=== PATIENT | male | born 1950 | race Caucasian/White ===

== ENCOUNTER 2016-06-16 15:00 | Emergency (ER) | payer OTHER ==
[~2016-06-16] VITALS: Ht 180.3 cm; Wt 80.3 kg
[2016-06-16] MEDS ORDERED: AMLODIPINE BESY10 M1 PO (15:37)
[2016-06-16] MEDS ORDERED: BRILINTA90 M1 PO (15:37)
[2016-06-16] MEDS ORDERED: SERTRALINE HCL25 MG PO (15:38)
[2016-06-16] MEDS ORDERED: LORAZEPAM0.5 M1 PO (15:38)
[2016-06-16] MEDS ORDERED: CARVEDILOL25 M1 PO (15:38)
[2016-06-16] MEDS ORDERED: LO-DOSE ASPIRIN81 MG PO (15:39)
[2016-06-16] MEDS ORDERED: NITROGLYCERIN0.4 M1 SL (15:39)
[2016-06-16] MEDS ORDERED: ATORVASTATIN CA40 M1 PO (15:40)
[2016-06-16 15:42] LABS: ABSOLUTE BASOPHIL COUNT 0 /CUMM (0.0-0.2); ABSOLUTE EOSINOPHIL COUNT 0.1 /CUMM (0.0-0.7); ABSOLUTE GRANULOCYTE CT 5.5 /CUMM (1.4-6.5); ABSOLUTE LYMPH COUNT 1.4 /CUMM (1.2-3.4); ABSOLUTE MONOCYTE COUNT 0.5 /CUMM (0.10-0.60); BASOPHIL % 0.4 % (0.0-2.0); EOSINOPHIL % 1.8 % (0-5); GRANULOCYTE % 72.4 % (42.2-75.2); HEMATOCRIT 36.6 % (42-52); MEAN CORPUSCULAR HGB CONC 31.2 G/DL (33.0-37.0); MEAN CORPUSCULAR VOLUME 60.8 FL (80.0-94.0); MEAN PLATELET VOLUME 8.6 FL (7.4-10.4); PLATELET COUNT 221 /CUMM (130-400); RBC DISTRIBUTION WIDTH 18.1 % (11.5-14.5); RED BLOOD CELL CT 6.01 /CUMM (4.70-6.10); WHITE BLOOD CELL COUNT 7.5 /CUMM (4.8-10.8)
--- NOTE | 2016-06-16 16:37 | ED CARDIAC/CP/PALPITATIONS ---
History of Present Illness General Chief Complaint: Chest Pain Stated Complaint: CHEST PAIN Source: patient, family, old records, Epic Exam Limitations: no limitations Vital Signs & Intake/Output Vital Signs & Intake/Output Vital Signs Date Time Temp Pulse Resp B/P Pulse O2 O2 Flow FiO2 Ox Delivery Rate 06/17 0604 97.0 54 18 128/79 97 Room Air 06/16 2342 96.0 60 93/60 06/16 2341 96.0 60 20 93/60 97 Room Air 06/16 2304 57 18 101/74 97 Room Air Room Air 06/16 1725 55 18 129/73 96 Room Air Room Air 06/16 1627 56 18 97/55 95 Room Air Room Air 06/16 1618 57 122/72 06/16 1518 97.7 72 16 94/61 96 Room Air ED Intake and Output 06/17 0000 06/16 1200 Intake Total Output Total Balance Patient 177 lb Weight Allergies Coded Allergies: NO KNOWN ALLERGIES (10/31/11) Core Measure Meds Pre-Hospital aspirin Triage Note: PT TO ED WITH C/O CHEST PRESSURE WORSE WHEN HE PUSHES ON IT. PT REPORTS THAT HE HAS HAD STENTS PLACED IN THE PAST. Triage Nurses Notes Reviewed? yes Onset: Just prior to arrival Duration: minute(s):, constant, continues in ED Timing: recent history Quality/Severity: severe, pressure Location: central Radiation: arms Activities at Onset: emotional stress Prior Chest Pain/Card Workup: angina, cardiac cath, echocardiography, heart attack, stress test Nitro Today/Relief: 0.4 mg x 1, provided by ED, no relief Aspirin Today: 325 mg x 1, provided by ED Associated Symptoms: dizziness, fatigue, shortness of breath, nausea/vomiting HPI: 30 minutes prior to admission while at the bank patient complains of weakness dizziness nausea shortness of breath and heavy substernal chest pain radiating to the left arm moderate in severity. 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 He was started on Zoloft and Ativan with cardiology follow-up. He asked nursing staff for tramadol or Percocet for his pain. He denies fever chills vomiting diarrhea abdominal pain dysuria headache rash bleeding suicidal ideation hallucination. (VENECIA MARTIN,CINDY) Reconcile Medications Amlodipine Besylate 10 MG TABLET 1 TAB PO DAILY HEART (Reported) Aspirin (Lo-Dose Aspirin EC) 81 MG TABLET.DR 1 TAB PO DAILY HEART HEALTH ( Reported) Atorvastatin Calcium 40 MG TABLET 1 TAB PO DAILY CHOLESTEROL (Reported) Carvedilol 25 MG TABLET 1 TAB PO BID HEART (Reported) Lorazepam 0.5 MG TABLET 1 TAB PO BIDP PRN ANXIETY (Reported) Nitroglycerin 0.4 MG TAB.SUBL 1 TAB SL AD PRN CHEST PAIN (Reported) 1st sign of attack; may repeat every 5 minutes until relief; if pain persists after 3 tablets in 15 minutes, prompt medical att Sertraline HCl 25 MG TABLET 1 TAB PO DAILY MENTAL HEALTH (Reported) Ticagrelor (Brilinta) 90 MG TABLET 1 TAB PO BID BLOOD THINNER (Reported) Tramadol HCl 50 MG TABLET 1-2 TAB PO TID PRN pain thirty...[id number] (ANITA MARTIN,DALIA Cooper) Past History Travel History Traveled to [place] past 21 day No Medical History Any Pertinent Medical History? see below for history Cardiovascular: CHF, STENTS 4 Surgical History Surgical History: non-contributory Psychosocial History Who do you live with Brother What is your primary language Vietnamese Tobacco Use: Quit >30 days ago ETOH Use: denies use Illicit Drug Use: denies illicit drug use Family History Hx Contributory? No (CINDY CUADRA MD) Review of Systems Review of Systems Constitutional: Reports: no symptoms. EENTM: Reports: no symptoms. Respiratory: Reports: see HPI, short of breath. Cardiovascular: Reports: see HPI, chest pain. GI: Reports: see HPI, nausea. Genitourinary: Reports: no symptoms. Musculoskeletal: Reports: no symptoms. Skin: Reports: no symptoms. Neurological/Psychological: Reports: no symptoms. Hematologic/Endocrine: Reports: no symptoms. Immunologic/Allergic: Reports: no symptoms. All Other Systems: Reviewed and Negative (CINDY CUADRA MD) Physical Exam Physical Exam General Appearance: well developed/nourished, alert, awake, anxious, mild distress Head: atraumatic, normal appearance Eyes: Bilateral: normal appearance, PERRL, EOMI. Ears, Nose, Throat: normal pharynx, normal ENT inspection, hearing grossly normal, moist mucus membranes Neck: normal inspection, supple, full range of motion, no midline tenderness Respiratory: normal breath sounds, chest non-tender, no respiratory distress, quiet respiration, lungs clear Cardiovascular: regular rate/rhythm, normal peripheral pulses, norml femoral pulses equa Peripheral Pulses: 4+ carotid (R), 4+ carotid (L) Gastrointestinal: normal bowel sounds, soft, non-tender, no organomegaly Back: normal inspection, normal range of motion Extremities: normal inspection, normal capillary refill Neurologic/Psych: no motor/sensory deficits, awake, alert, oriented x 3, normal gait, development director II-XII nml as tested Reflexes: 2+: bicep (R), bicep (L). Skin: intact, normal color, warm/dry Lymphatic: no anterior cervical tori Core Measures ACS in differential dx? Yes ASA ordered for poss ACS? Yes-ordered Severe Sepsis Present: No Septic Shock Present: No (VENECIA MARTIN,CINDY) Progress Differential Diagnosis: AMI, atrial fibrillation, CHF/pulm edema, costochondritis, hyperkalemia, hypovolemia Plan of Care: Orders Procedure Date/time Status Regular Diet 06/16 D Active TROPONIN LEVEL 06/16 1925 Complete EKG 06/16 1909 Active URINE DRUG SCREEN FOR ER ONLY 06/16 1814 Complete Add-on Test (ER Only) 06/16 1747 Active ED CRISIS PSYCH CONSULT 06/16 1747 Active ETHANOL 06/16 1526 Complete TROPONIN LEVEL 06/16 1525 Complete COMPREHENSIVE METABOLIC PANEL 06/16 1525 Complete CBC WITHOUT DIFFERENTIAL 06/16 1525 Complete EKG 06/16 1503 Active Laboratory Tests 06/16/16 2100: Urine Opiates Screen < 100.00, Methadone Screen < 40, Barbiturate Screen < 60, Ur Phencyclidine Scrn < 6.00, Amphetamines Screen < 100, U Benzodiazepines Scrn 87, Urine Cocaine Screen < 50, Urine Cannabis Screen < 5.00 06/16/16 1920: Troponin I < 0.01 06/16/16 1526: Anion Gap 13, Estimated GFR 51 L, BUN/Creatinine Ratio 18.6, Glucose 106 H, Calcium 9.5, Total Bilirubin 1.3, AST 24, ALT 36, Alkaline Phosphatase 60, Troponin I < 0.01, Total Protein 7.5, Albumin 4.4, Globulin 3.1, Albumin/ Globulin Ratio 1.4, CBC w Diff NO MAN DIFF REQ, RBC 6.01, MCV 60.8 L, MCH 19.0 L, RDW 18.1 H, MPV 8.6, Gran % 72.4, Lymphocytes % 18.3 L, Monocytes % 7.1, Eosinophils % 1.8, Basophils % 0.4, Absolute Granulocytes 5.5, Absolute Lymphocytes 1.4, Absolute Monocytes 0.5, Absolute Eosinophils 0.1, Absolute Basophils 0, PUBS MCHC 31.2 L, Serum Alcohol < 10.0 Initial ED EKG: normal axis, normal intervals, normal p-waves, normal QRS complex, normal sinus rhythm, no ST T wave changes Prior EKG: unchanged Rhythm Strip: normal sinus rhythm Hand-Off Endorsed To: ANITA MARTIN,DALIA Cooper Endorsed Time: 1899 Pending: consult, labs Comments: Dg Garcia, cousin has been caring for patient's needs since of brother. He works overnight for [employer] but can pick him up in the morning if he is dischargeable. [phone] Night meds ordered. (CINDY CUADRA MD) Departure Departure Disposition: STILL A PATIENT Condition: Stable Referrals: PATIENT HAS NO PRIMARY CARE DR (PCP/Family) Departure Forms: Customer Survey General Discharge Information Admission Note Spoke With: FANNY MARTIN,JENNY (CINDY CUADRA MD) Departure Clinical Impression Primary Impression: Major depression Qualifiers: Major depression recurrence: recurrent Active/Remission status: currently active Major depression episode severity: severe Psychotic features: without psychotic features Qualified Code: F33.2 - Major depressive disorder, recurrent severe without psychotic features Secondary Impressions: Chest pain syndrome, Chronic pain Prescriptions: Current Visit Scripts Tramadol HCl 1-2 TAB PO TID PRN pain #30 TAB thirty...[id number] Comments 06/16/16, 22:49... discussed with crises... pt cleared... and will follow up with his physicians in [facility]. 06/16/16, 23:35... pt had witnessed episode where he lowered himself to the ground. Witnessed by RN. No head trauma... He has a benign exam. He was cleared by crises team. He has no ride home. He wishes to follow up with his [facility] physicians. He is stable, able to articulate his healthcare needs. He will spend the night to be discharged this morning. 06/16/16, 6:30am....trop neg x 2, ekg benign x 2... pt cleared at [place] last week with cards evaluation. Pt feeling well, feels comfortable leaving... pt asks for short course of tramadol for chronic shoulder pain.... rx sent to [facility] [place]... close follow up advised. (ANITA MARTIN,DALIA Cooper) Critical Care Note Critical Care Note Critical Care Time: 30-74 min (35) (VENECIA MARTIN,CINDY)
--- NOTE | 2016-06-16 22:37 | ED PSYCH CRISIS CONSULTATION ---
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 Pt reported to triage that he was in the bank and started to experience chest pain and was dizzy. Patient was cleared medically for any cardiac related issues. Patient informed ED staff that his brother whom he lived with recently unexpectedly. Upon crisis evaluation, pt endorsed chest pain 7/8 out of 10 which was communicated to Pt nurse at completion of assessment. Pt reported he was seen in [place] ED earlier in the week after his brother unexpected this week. He reports he was prescribed Zoloft and Ativan and given referrals for therapy. Patient reports when his brother he entered into a dark place. He denied current and previous SI / HI. Patient wasn't sleeping well, was sad, worrying about how to manage without his brother, and overall grief. Pt reports that he had clarify about his "situation" when he woke up from his nap here in the ED. Patient believes the Tramadol and Ativan that was given to him helped. We discussed the importance of following up with psychiatric care so he can have continued support. Pt agrees he would like to be in therapy and find a psychiatrist to continue to prescribe the Zoloft. Patient reported he would do this in [facility] as he is a [facility] employee at a [employer] and needs to keep his doctors in [facility]. Crisis printed a list of [place] psychiatrists in [facility] to provide to patient. Also instructed pt to call the back of his card for additional referral options. PT did not have card on him in ED. Pt has a cousin that he is staying with that he wants to stay with for the time being, especially since the wake in Friday night and the in Friday. Encouraged patient to call for an appointment with a [place] psychiatrist while he is home tomorrow. Crisis consulted with Dr. Duque. Pt to be discharged from ED to follow up with outpatient therapy and medication management with insurance paneled psychiatrist in [facility]. Patient's Address: [place] [address] Other Phone Number: Who Do You Live With? Family Family/Informants Interviewed: cannot be obtained due to (cousin is working 3rd shift ) Allergies - Coded Allergies: NO KNOWN ALLERGIES (10/31/11) Current Medications - Scheduled Medications Amlodipine Besylate 10 MG TABLET 1 TAB PO DAILY HEART #30 (Reported) Entered as Reported by NIK BARRIENTOS on 06/16/16 1537 Aspirin (Lo-Dose Aspirin EC) 81 MG TABLET.DR 1 TAB PO DAILY HEART HEALTH #30 (Reported) Entered as Reported by NIK BARRIENTOS on 06/16/16 1539 Atorvastatin Calcium 40 MG TABLET 1 TAB PO DAILY CHOLESTEROL #30 (Reported) Entered as Reported by NIK BARRIENTOS on 06/16/16 1540 Carvedilol 25 MG TABLET 1 TAB PO BID HEART #60 (Reported) Entered as Reported by NIK BARRIENTOS on 06/16/16 1538 Sertraline HCl 25 MG TABLET 1 TAB PO DAILY MENTAL HEALTH #30 (Reported) Entered as Reported by NIK BARRIENTOS on 06/16/16 1538 Ticagrelor (Brilinta) 90 MG TABLET 1 TAB PO BID BLOOD THINNER #180 (Reported) Entered as Reported by NIK BARRIENTOS on 06/16/16 1537 Scheduled PRN Medications Lorazepam 0.5 MG TABLET 1 TAB PO BIDP PRN ANXIETY #10 (Reported) Entered as Reported by NIK BARRIENTOS on 06/16/16 1538 Nitroglycerin 0.4 MG TAB.SUBL 1 TAB SL AD PRN CHEST PAIN #100 (Reported) Entered as Reported by NIK BARRIENTOS on 06/16/16 1539 Laboratory Results: Laboratory Tests 06/16/16 2100: Urine Opiates Screen < 100.00, Methadone Screen < 40, Barbiturate Screen < 60, Ur Phencyclidine Scrn < 6.00, Amphetamines Screen < 100, U Benzodiazepines Scrn 87, Urine Cocaine Screen < 50, Urine Cannabis Screen < 5.00 06/16/16 1920: Troponin I < 0.01 06/16/16 1526: Anion Gap 13, Estimated GFR 51 L, BUN/Creatinine Ratio 18.6, Glucose 106 H, Calcium 9.5, Total Bilirubin 1.3, AST 24, ALT 36, Alkaline Phosphatase 60, Troponin I < 0.01, Total Protein 7.5, Albumin 4.4, Globulin 3.1, Albumin/ Globulin Ratio 1.4, CBC w Diff NO MAN DIFF REQ, RBC 6.01, MCV 60.8 L, MCH 19.0 L, RDW 18.1 H, MPV 8.6, Gran % 72.4, Lymphocytes % 18.3 L, Monocytes % 7.1, Eosinophils % 1.8, Basophils % 0.4, Absolute Granulocytes 5.5, Absolute Lymphocytes 1.4, Absolute Monocytes 0.5, Absolute Eosinophils 0.1, Absolute Basophils 0, PUBS MCHC 31.2 L, Serum Alcohol < 10.0 Past History Past Medical History Neurological: NONE Cardiovascular: CHF, STENTS 4 Psychiatric: anxiety, depression Past Surgical History Surgical History: non-contributory Psychosocial History Strengths/Capabilities: 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 Pt is agreeable to mental health treatment to cope with of brother 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 Patient had some chest monitors attached to his body but not hooked up to any machine during interview. Patient wore glasses. Behaviors Thought Process: WNL Thought Content: WNL Memory: WNL Insight: Fair SI/HI Risk Assessment Past Suicidal Ideation/Attempts No Current Suicidal Ideation/Att No Past Homicidal Ideation/Att: No Current Homicidal Ideation/Attempts No Degree of Intent: None Risk Factors: male, limited support Lethality Ratin PTSD Checklist PTSD Done? patient declined ED Management Sitter: No Restraints: No DSM5/PS Stressors/Medical Prob Diagnosis' (DSM 5, Stressors, Medical): F32.9 Unspecified Depressive Disorder R/O Anxiety Disorder Current GAF: 45 Departure Disposition Psych Medical Clearance Date: 06/16/16 Medically Cleared at: 2149 Time Started: 2149 Time Ended: 2210 Psychiatrist Consulted: Dr. Duque Disposition Established: 06/16/16 Time Disposition Established: 2219 Plan for Disposition - Modality: Outpatient Facility: Patient to Arrange Rationale for Disposition: Pt denies SI/HI or A/V hallucinations. Pt is is in agreement with outpatient therapy in order to process grief related to of his brother Referrals PATIENT HAS NO PRIMARY CARE DR (PCP/Family)
[2016-06-17 06:04] VITALS: BP 128/79
[2016-06-17] MEDS ORDERED: TRAMADOL HCL50 M1 PO (06:21)
== END 2016-06-17 06:24 ==
LOC: ERH 15:00
PROVIDERS: Emergency Medicine
DX: F32.9 Major depressive disorder, single episode, unspecified (principal); R07.89 Other chest pain; G89.29 Other chronic pain
CPT/HCPCS: 80307; 93005; 93010; G0463; G0480; J0131

== ENCOUNTER 2016-06-20 18:45 | Inpatient (IN) | payer OTHER ==
[~2016-06-20] VITALS: Ht 180.3 cm; Wt 75.1 kg
[~2016-06-20 18:45] MED LIST: AMLODIPINE BESY10 M1 PO; ATORVASTATIN CA40 M1 PO; BRILINTA90 M1 PO; CARVEDILOL25 M1 PO; LO-DOSE ASPIRIN81 MG PO; LORAZEPAM0.5 M1 PO; NITROGLYCERIN0.4 M1 SL; SERTRALINE HCL25 MG PO; TRAMADOL HCL50 M1 PO
--- NOTE | 2016-06-20 18:51 | NUR ---
PT TO ED FOR +SI, PT REPORTING HE IS FEELING SUICIDIAL BECAUSE "MY BROTHER ON 06/10 AND I JUST WANT TO BE WITH HIM". PT DENIES ANY ACTIVE PLAN BUT STATING "IM GOING TO BE SOON, I KNOW I AM, I DONT KNOW HOW IM GOING TO DO IT BUT YOULL SEE ILL BE "
--- NOTE | 2016-06-20 18:54 | NUR ---
SECURITY AT BEDSIDE PT CHANGED INTO BLUE SCRUBS
--- NOTE | 2016-06-20 18:55 | NUR ---
PA STUDENT AT BEDSIDE. PT SPOKE WITH HIM, HOWEVER STATED HE "WAS DONE TALKING" AND REFUSED TO ANSWER ANY OF THIS RN'S QUESTIONS. PT LYING ON BED IN ROOM 15. PT CALM AND NON-COMMUNICATIVE. SITTER AT DOOR FOR SAFETY.
--- NOTE | 2016-06-20 19:25 | ED PSYCHIATRIC COMPLAINT ---
History of Present Illness General Chief Complaint: Psychiatric Related Complaint Stated Complaint: +SI Source: patient Exam Limitations: poor historian Vital Signs & Intake/Output Vital Signs & Intake/Output Vital Signs Date Time Temp Pulse Resp B/P Pulse O2 O2 Flow FiO2 Ox Delivery Rate 06/21 0827 97.0 74 18 141/91 97 Room Air 06/21 0623 97.6 60 18 144/79 97 Room Air 06/20 2359 97.6 86 18 150/83 97 Room Air 06/20 2245 98.2 92 16 162/74 06/20 2050 Room Air 06/20 1850 98.6 80 15 165/70 100 Room Air ED Intake and Output 06/21 0000 06/20 1200 Intake Total Output Total Balance Patient 185 lb Weight Allergies Coded Allergies: NO KNOWN ALLERGIES (10/31/11) Reconcile Medications Amlodipine Besylate 10 MG TABLET 1 TAB PO DAILY HEART (Reported) Aspirin (Lo-Dose Aspirin EC) 81 MG TABLET.DR 1 TAB PO DAILY HEART HEALTH ( Reported) Atorvastatin Calcium 40 MG TABLET 1 TAB PO DAILY CHOLESTEROL (Reported) Carvedilol 25 MG TABLET 1 TAB PO BID HEART (Reported) Lorazepam 0.5 MG TABLET 1 TAB PO BIDP PRN ANXIETY (Reported) Nitroglycerin 0.4 MG TAB.SUBL 1 TAB SL AD PRN CHEST PAIN (Reported) 1st sign of attack; may repeat every 5 minutes until relief; if pain persists after 3 tablets in 15 minutes, prompt medical att Sertraline HCl 25 MG TABLET 1 TAB PO DAILY MENTAL HEALTH (Reported) Ticagrelor (Brilinta) 90 MG TABLET 1 TAB PO BID BLOOD THINNER (Reported) Tramadol HCl 50 MG TABLET 1-2 TAB PO TID PRN pain thirty...[id number] Triage Note: PT TO ED FOR +SI, PT REPORTING HE IS FEELING SUICIDIAL BECAUSE "MY BROTHER ON 06/10 AND I JUST WANT TO BE WITH HIM". PT DENIES ANY ACTIVE PLAN. Triage Nurses Notes Reviewed? yes HPI: 66-year-old male comes into the emergency room for further evaluation of complaining that he just needs to . He reports that ever since his brother which was June 10 he has been very sad. He describes his brother as being his other half. Patient reports that he can open longer take care of himself and just doesn't want to live anymore. Denied any physical complaints. Patient became very withdrawn and would not answer anymore questions after he made the statements. History is limited. Patient was seen here the other day and evaluated by crisis and sent home. (SCOTT POWERS) Past History Travel History Traveled to [place] past 21 day No Medical History Any Pertinent Medical History? see below for history Neurological: NONE Cardiovascular: CHF, STENTS 4 Respiratory: NONE Gastrointestinal: NONE Hepatic: NONE Renal: NONE Musculoskeletal: NONE Psychiatric: anxiety, depression Endocrine: NONE Blood Disorders: NONE Cancer(s): NONE Surgical History Surgical History: non-contributory Psychosocial History Who do you live with Family What is your primary language Persian Tobacco Use: Never used ETOH Use: occasional use Illicit Drug Use: denies illicit drug use Family History Hx Contributory? No (SCOTT POWERS) Review of Systems Review of Systems Constitutional: Reports: no symptoms. EENTM: Reports: no symptoms. Respiratory: Reports: no symptoms. Cardiovascular: Reports: no symptoms. GI: Reports: no symptoms. Genitourinary: Reports: no symptoms. Musculoskeletal: Reports: no symptoms. Skin: Reports: no symptoms. Neurological/Psychological: Reports: see HPI. Hematologic/Endocrine: Reports: no symptoms. Immunologic/Allergic: Reports: no symptoms. All Other Systems: Reviewed and Negative (SCOTT POWERS) Physical Exam Physical Exam General Appearance: well developed/nourished, mild distress Head: atraumatic Eyes: Bilateral: normal appearance. Ears, Nose, Throat: normal ENT inspection, hearing grossly normal Neck: normal inspection Respiratory: no respiratory distress Extremities: normal range of motion Neurological/Psychiatric: awake, agitated, depressed affect Appearance/Memory/Insight: disheveled, impaired insight Behavoir/Eye Contact/Speech: avoids eye contact, uncooperative, refused to answer Thoughts/Hallucinations: no apparent hallucination Skin: intact, normal color, warm/dry SAD PERSONS SAD PERSONS Response Value Male Sex? yes 1 Age <19 or >45 years? yes 1 Depression/Hopelessness? yes 2 Rational Thinking Loss? yes 2 Single//? yes 1 Stated Future Intent? yes 2 Total 9 SAD PERSONS Done? yes (SCOTT POWERS) Progress Differential Diagnosis: dementia, drug intoxication, drug overdose, drug withdrawal, electrolyte abnormality, encephalitis, hypoglycemia, hypothyroidism, IC hem/mass/tumor, meningitis, major depression, bipolar, borderline personality , Plan of Care: Orders Procedure Date/time Status Regular Diet 06/21 B Active Admit to inpatient psych 06/21 1018 Active EKG 06/21 0823 Active Continuous Observation Monitor 06/21 0700 Active Continuous Observation Monitor 06/21 0300 Active Continuous Observation Monitor 06/20 2300 Active ACETOMINOPHEN 06/20 1948 Complete SALICYLATE 06/20 1948 Complete ED CRISIS PSYCH CONSULT 06/20 1925 Active URINE DRUGS OF ABUSE 06/21 1907 Complete ETHANOL 06/21 1907 Complete COMPREHENSIVE METABOLIC PANEL 06/21 1907 Complete CBC WITHOUT DIFFERENTIAL 06/21 1907 Complete Continuous Observation Monitor 06/20 1899 Active Current Medications Sig/Moises Start time Last Medication Dose Stop Time Status Admin Atorvastatin Calcium 40 MG 1700 06/21 1700 UNVr (Lipitor) Amlodipine Besylate 10 MG DAILY 06/21 1000 UNVr (Norvasc) Carvedilol 25 MG BID 06/21 1000 UNVr (Coreg) Sertraline HCl 25 MG DAILY 06/21 1000 UNVr (Zoloft) Ticagrelor 90 MG BID 06/21 1000 UNVr (Brilinta) Laboratory Tests 06/20/162236: Urine Opiates Screen < 100.00, Methadone Screen < 40, Barbiturate Screen < 60, Ur Phencyclidine Scrn < 6.00, Amphetamines Screen < 100, U Benzodiazepines Scrn < 85, Urine Cocaine Screen < 50, Urine Cannabis Screen < 5.00 06/20/161948: Anion Gap 10, Estimated GFR > 60, BUN/Creatinine Ratio 21.8, Glucose 97, Calcium 9.5, Total Bilirubin 0.9, AST 26, ALT 32, Alkaline Phosphatase 65, Total Protein 7.7, Albumin 4.4, Globulin 3.3, Albumin/Globulin Ratio 1.3, CBC w Diff NO MAN DIFF REQ, RBC 6.28 H, MCV 60.0 L, MCH 18.9 L, RDW 17.6 H, MPV 8.6, Gran % 68.2, Lymphocytes % 20.4 L, Monocytes % 8.0, Eosinophils % 3.0, Basophils % 0.4 , Absolute Granulocytes 4.5, Absolute Lymphocytes 1.4, Absolute Monocytes 0.5, Absolute Eosinophils 0.2, Absolute Basophils 0, PUBS MCHC 31.6 L, Salicylates < 1.0, Acetaminophen < 10.0 L, Serum Alcohol < 10.0 06/20/16 1929: Salicylates Cancelled, Acetaminophen Cancelled 06/21/2016 7:16:09 AM Patient signed out to me by Dr. Cuadra. Pending crisis evaluation and disposition. 10:19AM Patient admitted to [facility]. (BETY SAUCEDO MD) Hand-Off Endorsed To: CINDY CUADRA MD Endorsed Time: 2253 Pending: consult (crisis) (SCOTT POWERS) Hand-Off Endorsed To: BETY SAUCEDO MD Endorsed Time: 0700 Pending: consult (initial consultation) (CINDY CUADRA MD) Initial ED EKG: NSR, ST depression (LATERAL ST DEPRESSIONS), PVC'S Prior EKG: unchanged (BETY SAUCEDO MD) Departure Departure Condition: Stable Clinical Impression Primary Impression: Major depression Referrals: PATIENT HAS NO PRIMARY CARE DR (PCP/Family) Departure Forms: Customer Survey General Discharge Information (SCOTT POWERS) PA/CORNICE UPHOLSTERER Co-Sign Statement Statement: ED Attending supervision documentation- x I saw and evaluated the patient. I have also reviewed all the pertinent lab results and diagnostic results. I agree with the findings and the plan of care as documented in the PA's/CORNICE UPHOLSTERER's documentation. [] I have reviewed the ED Record and agree with the PA's/CORNICE UPHOLSTERER's documentation. [] Additions or exceptions (if any) to the PAs/CORNICE UPHOLSTERER's note and plan are summarized below: [] (CINDY CUADRA MD) Departure Time of Disposition: 1018 Disposition: STILL A PATIENT Psych Admission Note Psychiatric Admission: I have seen and evaluated ITZEL GERARD. I have also reviewed all the pertinent lab results and diagnostic results. ITZEL GERARD will be admitted to our inpatient Psychiatric unit for treatment and care. (BETY SAUCEDO MD)
--- NOTE | 2016-06-20 19:35 | NUR ---
PT SPOKE WITH THIS RN AND STATED "I JUST WANT TO BE WITH MY BROTHER. WE WERE INSEPERABLE. HE WOULDN'T WANT ME TO SUFFER LIKE THIS. I CAN'T EAT OR SLEEP OR SHOWER".
--- NOTE | 2016-06-20 19:52 | NUR ---
LABS DRAWN AND SENT BY THIS MST. SST,LAV.
[2016-06-20 20:12] LABS: ABSOLUTE BASOPHIL COUNT 0 /CUMM (0.0-0.2); ABSOLUTE EOSINOPHIL COUNT 0.2 /CUMM (0.0-0.7); ABSOLUTE GRANULOCYTE CT 4.5 /CUMM (1.4-6.5); ABSOLUTE LYMPH COUNT 1.4 /CUMM (1.2-3.4); ABSOLUTE MONOCYTE COUNT 0.5 /CUMM (0.10-0.60); BASOPHIL % 0.4 % (0.0-2.0); GRANULOCYTE % 68.2 % (42.2-75.2); HEMATOCRIT 37.7 % (42-52); MEAN CORPUSCULAR HGB 18.9 PG (27.0-31.0); MEAN CORPUSCULAR HGB CONC 31.6 G/DL (33.0-37.0); MEAN PLATELET VOLUME 8.6 FL (7.4-10.4); PLATELET COUNT 214 /CUMM (130-400); RBC DISTRIBUTION WIDTH 17.6 % (11.5-14.5); RED BLOOD CELL CT 6.28 /CUMM (4.70-6.10); WHITE BLOOD CELL COUNT 6.6 /CUMM (4.8-10.8)
--- NOTE | 2016-06-20 20:53 | NUR ---
PT WAS BROUGHT TO ER BY HIS COUSIN AND HIS LATE BROTHER'S EAP WORKER. EAP WORKER SPOKE WITH THIS RN TO TELL HOW PT HAS BEEN ACTING OVER THE LAST FEW DAYS, WITH THE WAKE AND THE . 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 PT IS EXPRESSING INTENT TO AND "WANTS TO BE WITH HIS BROTHER". PT MEDICATED WITH TRAZODONE 50MG FOR SLEEP. PROVIDED PT WITH ANOTHER BLANKET.
--- NOTE | 2016-06-20 21:37 | ED PSY CRISIS COLLATERAL NOTE ---
Collateral Note Collateral Note Family/Inform/Win Contacts: DEEPAK spoke with the patients cousin, Dg Garcia ([phone]), for collateral information. Dg notes that he brought the patient in for evaluation tonight, as the patient has been making suicidal to his (Dg's ). Dg reports that the patient was living with his brother until his recent passing, noting that "his brother took care of him." Dg reports that the patient "can be very stable, up until he is not." Dg notes that the patient has some mental health issues, however has never been formally diagnosed. 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 Dg notes that the patient has had a very difficult time coping with the loss of his brother. Dg is not sure what would be most helpful, however does believe that he needs some mental health treatment. He would like to be called when the plan of care is decided.
--- NOTE | 2016-06-20 21:39 | NUR ---
Crisis consult recieved, however the patient has not given a urine. He is preoccupied with and states "that he is a man walking." When explained that a urine is needed prior to evaluation, he said "all he needs is to go and be with his brother," of note his brother last week. Collateral obtained and the patient will be evaluated in the AM. Case discussed with JON Polanco and Dr. Higginbotham.
--- NOTE | 2016-06-20 21:50 | NUR ---
MEDICATED PT WITH ATIVAN 1MG FOR ANXIETY. PT CALM AND COOPERATIVE IN ROOM 15. SITTER AT DOOR
--- NOTE | 2016-06-20 22:40 | NUR ---
URINE TRIO SENT BY THIS MST
--- NOTE | 2016-06-21 00:07 | NUR ---
SLEEPING AT THIS TIME SITTER AT DOOR.
--- NOTE | 2016-06-21 03:20 | NUR ---
PATIENT AWAKE, CONTINUES TO REQUEST ATIVAN. PATIENT COOPERATIVE W/ STAFF. MD CUADRA AWARE. PATIENT MEDICATED W/ ATIVAN PER EMAR. TOLERATED WELL. PLACED IN HOSPITAL BED IN ROOM AT THIS TIME FOR COMFORT. SITTER REMAINS W/ PATIENT.
--- NOTE | 2016-06-21 03:27 | NUR ---
PATIENT REPORTS "I CAN'T TAKE THE AIR BLOWER IN THE ROOM." DENIES DISCOMFORT W/ ROOM TEMP. THERMOSTAT ADJUSTED PER REQUEST, PATIENT AGREEABLE TO INTERVENTION. REMAINS IN HOSPITAL BED W/ TV ON LOUD PER REQUEST. SITTER REMAINS W/ PATIENT.
--- NOTE | 2016-06-21 04:51 | NUR ---
PATIENT CONTINUES TO SLEEP AT THIS TIME W/ REGULAR RESPIRATIONS NOTED. SITTER REMAINS AT DOORWAY.
--- NOTE | 2016-06-21 06:10 | NUR ---
PATIENT CONTINUES TO SLEEP AT THIS TIME W/ REGULAR RESPIRATIONS NOTED. SITTER REMAINS AT DOORWAY. LIGHTS REMAIN DIMMED. PATIENT NOTED TO BE SELF TURNING AND REPOSITIONING.
--- NOTE | 2016-06-21 08:00 | NUR ---
ASSUMED CARE OF THIS PATIENT, REPORT RECEIVED FROM JON BURRIS PT APPEARS TO BE SLEEPING AT THIS TIME WITH REGULAR RESPIRATIONS NOTED. PER REPORT PT TO BE RE-EVALUATED BY CRISIS THIS MORNING. SITTER REMAINS AT DOOR.
--- NOTE | 2016-06-21 08:28 | NUR ---
PT AWAKENS, REQUESTS ATIVAN. DISCUSSED SAME WITH MD SAUCEDO PT MEDICATED WITH ATIVAN PER ORDERS PRIOR TO MEDICATING, VITALS OBTAINED. PT COMPLAINS OF 8/10 CHEST PAIN. DESCRIBES PAIN "LIKE AN ELEPHANT SITTING ON MY CHEST". STATES HAS HAD SAME INTERMITTENT X 1 MONTH AND IS NOT PRESENT/CONSTANT X 1 HR. STATES HE HAS BEEN AT [facility] FOR SAME AND THAT THEY GAVE HIM TRAMADOL FOR THE PAIN. PT ALSO REPORTS HX OF CAD WITH MD AND [address] SAUCEDO MADE AWARE OF SAME. PT MEDICATED WITH 325 ASPIRIN AND EKG BEING DONE AT PRESENT PER ORDERS MD SAUCEDO.
--- NOTE | 2016-06-21 09:10 | ED PSYCH CRISIS CONSULTATION ---
Crisis Consult Basic Assessment Date of Consult: 06/21/16 Responsible Person/Accompanied By: Dg - cousin Insurance Authorization: Insurance #1: Insurance name: TORY Phone number: Policy number: [id number] Group number: Authorization number: ED Provider: Patient's ED Provider: SCOTT POWERS Primary Care Physician: Patient's PCP: PATIENT HAS NO PRIMARY CARE DR PCP's Phone Number: Current Psychiatrist: No provider Chief Complaint: Psychiatric Related Complaint Patient's Quote: " I just want to . I have various ways but won't tell you." Present Illness: Pt is 66 yo single male presenting to the ED with severe suicidal feelings of wanting to and join his late brother who recently passed in May 2016. Pt stated " I have various plans in my head and I won't tell you." Pt UTOX was negative for substances. Pt stated he has no hx of mental health treatment/ substance abuse or IP hospitalizations. He said the of his younger brother ( 4 years) is too painful to bare and wants to join his brother. " We were inseparable ". He stated he cannot eat or drink anything, and sleep is horrible. " the ativan is helping". Pt denies hx AVH hallucinations, hx of legal issues and trauma. 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 Pt said he does not wish to return to work - he cannot think of anything else. Pt's hx is limited during consultation interview as he is preoccupied with dying. He said he does not feel counseling or group therapy would be helpful, however he is willing to be admitted to the hospital for mood stabilization and safety. Patient's Address: [address] [place] [address] Other Phone Number: Who Do You Live With? Family Family/Informants Interviewed: Dg- relative Allergies - Coded Allergies: NO KNOWN ALLERGIES (10/31/11) Current Medications - Scheduled Medications Amlodipine Besylate 10 MG TABLET 1 TAB PO DAILY HEART #30 (Reported) Entered as Reported by NIK BARRIENTOS on 06/16/16 7237 Aspirin (Lo-Dose Aspirin EC) 81 MG TABLET. 1 TAB PO DAILY HEART HEALTH #30 (Reported) Entered as Reported by NIK BARRIENTOS on 06/16/16 1539 Atorvastatin Calcium 40 MG TABLET 1 TAB PO DAILY CHOLESTEROL #30 (Reported) Entered as Reported by NIK BARRIENTOS on 06/16/16 1540 Carvedilol 25 MG TABLET 1 TAB PO BID HEART #60 (Reported) Entered as Reported by NIK BARRIENTOS on 06/16/16 1538 Sertraline HCl 25 MG TABLET 1 TAB PO DAILY MENTAL HEALTH #30 (Reported) Entered as Reported by NIK BARRIENTOS on 06/16/16 1538 Ticagrelor (Brilinta) 90 MG TABLET 1 TAB PO BID BLOOD THINNER #180 (Reported) Entered as Reported by NIK BARRIENTOS on 06/16/16 1537 Scheduled PRN Medications Lorazepam 0.5 MG TABLET 1 TAB PO BIDP PRN ANXIETY #10 (Reported) Entered as Reported by NIK BARRIENTOS on 06/16/16 1538 Nitroglycerin 0.4 MG TAB.SUBL 1 TAB SL AD PRN CHEST PAIN #100 (Reported) Entered as Reported by NIK BARRIENTOS on 06/16/16 1539 Tramadol HCl 50 MG TABLET 1-2 TAB PO TID PRN pain #30 TAB Prescribed by GUANAKITO HOWARD [facility] on 06/17/16 Laboratory Results: Laboratory Tests 06/20/162236: Urine Opiates Screen < 100.00, Methadone Screen < 40, Barbiturate Screen < 60, Ur Phencyclidine Scrn < 6.00, Amphetamines Screen < 100, U Benzodiazepines Scrn < 85, Urine Cocaine Screen < 50, Urine Cannabis Screen < 5.00 06/20/161948: Anion Gap 10, Estimated GFR > 60, BUN/Creatinine Ratio 21.8, Glucose 97, Calcium 9.5, Total Bilirubin 0.9, AST 26, ALT 32, Alkaline Phosphatase 65, Total Protein 7.7, Albumin 4.4, Globulin 3.3, Albumin/Globulin Ratio 1.3, CBC w Diff NO MAN DIFF REQ, RBC 6.28 H, MCV 60.0 L, MCH 18.9 L, RDW 17.6 H, MPV 8.6, Gran % 68.2, Lymphocytes % 20.4 L, Monocytes % 8.0, Eosinophils % 3.0, Basophils % 0.4 , Absolute Granulocytes 4.5, Absolute Lymphocytes 1.4, Absolute Monocytes 0.5, Absolute Eosinophils 0.2, Absolute Basophils 0, PUBS MCHC 31.6 L, Salicylates < 1.0, Acetaminophen < 10.0 L, Serum Alcohol < 10.0 06/20/161928: Salicylates Cancelled, Acetaminophen Cancelled Past History Past Medical History Neurological: NONE Cardiovascular: CAD, CHF, myocardial infarction, STENTS 4 Respiratory: NONE Gastrointestinal: NONE Hepatic: NONE Renal: NONE Musculoskeletal: NONE Psychiatric: anxiety, depression Endocrine: NONE Blood Disorders: NONE Cancer(s): NONE Past Surgical History Surgical History: non-contributory Psychosocial History Strengths/Capabilities: 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 Pt is agreeable to mental health treatment to cope with of brother 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 Physical Limitations (Interventions): none Psychiatric Treatment History Psych Treatment Psychiatric Treatment No Inpatient Treatment No Outpatient Treatment No Diagnosis by History: none Substance Use/Abuse History Drug Use/Abuse Substances Used/Abused No Substance Abuse Treatment Substance Abuse Treatment Past Substance Abuse [place] No Inpatient Treatment No Outpatient Treatment No Current Mental Status Mental Status Orientation: Person, Place, Situation Affect: Blunted, Depressed, Flat, Hopeless Speech: Mumbled, Soft Neuro-vegetative: Appetite Decreased, Concentration Poor, Energy Decreased, Helpless, Loss of Interest, Sleep Disturbance Appearance Appearance- Dress/Hygiene: Pt is dressed in blue hospital gown, laying down in bed, poor eye contact, and disheveled long hair. Hygiene is poor. Behaviors Thought Process: Irrational Thought Content: WNL Memory: Impaired Insight: Poor SI/HI Risk Assessment Past Suicidal Ideation/Attempts No Current Suicidal Ideation/Att Yes Past Homicidal Ideation/Att: No Current Homicidal Ideation/Attempts No Degree of Intent: States Intent Gravely Disabled: Lack of Insight, Poor Judgment Risk Factors: high anxiety/distress, isolate/no social support, poor impulse control, lives alone, male, limited support Lethality Ratin PTSD Checklist PTSD Done? pt unable to participate ED Management Sitter: Yes Restraints: No DSM5/PS Stressors/Medical Prob Diagnosis' (DSM 5, Stressors, Medical): F32.2 Major depressive disorder, severe, single episode medical: pt reports coronary heart disease psychosocial: limited primary and social supports, bereavment issues Current GAF: 20 Departure Disposition Psych Medical Clearance Date: 06/21/16 Medically Cleared at: 0840 Time Started: 0840 Time Ended: 09 Psychiatrist Consulted: Heide MARTIN,Edward Date Disposition Established: 06/21/16 Time Disposition Established: 1000 Plan for Disposition - Modality: Inpatient Psychiatry [facility]: [facility] Rationale for Disposition: Pt is actively suicidal with intent to kill himself and join his late brother. Pt refuses to disclose his plan to kill himself. He is agreeable for inpatient admission for mood stabilization and safety. Type of IP Admission: Voluntary Referrals PATIENT HAS NO PRIMARY CARE DR (PCP/Family)
--- NOTE | 2016-06-21 09:58 | IP CRISIS DIAG ASSESS PSYCH ---
See Addendum Diagnostic Assessment Basic Assessment Insurance Authorization: Insurance #1: Insurance name: T[employer] Phone number: Policy number: [id number] Group number: Authorization number: Primary Care Physician: Patient's PCP: PATIENT HAS NO PRIMARY CARE DR PCP's Phone Number: Patient's Quote: " I just want to . I have various ways but won't tell you." Present Illness: Pt is 66 yo single male presenting to the ED with severe suicidal feelings of wanting to and join his late brother who passed in May 2016. Pt stated " I have various plans in my head and I won't tell you." Pt UTOX was negative for substances. Pt stated he has no hx of mental health treatment/ substance abuse or IP hospitalizations. He said the of his younger brother ( 4 years) is too painful to bare and wants to join his brother. " We were inseparable ". He stated he cannot eat or drink anything, and sleep is horrible. " the ativan is helping". Pt denies hx AVH hallucinations, hx of legal issues and trauma. 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 Pt said he does not wish to return to work - he cannot think of anything else. Pt's hx is limited during consultation interview as he is preoccupied with dying. He said he does not feel counseling or group therapy would be helpful, however he is willing to be admitted to the hospital for mood stabilization and safety. Patient's Address: [address] [place] [address] Other Phone Number: Who Do You Live With? Family Feel Safe Where You Live? No Marital Status: single Do You Have Children? No Primary Language? Guinean Language(s) Spoken At Home: Guinean Family/Informants Interviewed: Dg- relative Allergies - Coded Allergies: NO KNOWN ALLERGIES (10/31/11) Current Medications - Scheduled Medications Amlodipine Besylate 10 MG TABLET 1 TAB PO DAILY HEART #30 (Reported) Entered as Reported by NIK BARRIENTOS on 06/16/16 1537 Aspirin (Lo-Dose Aspirin EC) 81 MG TABLET. 1 TAB PO DAILY HEART HEALTH #30 (Reported) Entered as Reported by NIK BARRIENTOS on 06/16/16 1539 Atorvastatin Calcium 40 MG TABLET 1 TAB PO DAILY CHOLESTEROL #30 (Reported) Entered as Reported by NIK BARRIENTOS on 06/16/16 1540 Carvedilol 25 MG TABLET 1 TAB PO BID HEART #60 (Reported) Entered as Reported by NIK BARRIENTOS on 06/16/16 1538 Sertraline HCl 25 MG TABLET 1 TAB PO DAILY MENTAL HEALTH #30 (Reported) Entered as Reported by NIK BARRIENTOS on 06/16/16 1538 Ticagrelor (Brilinta) 90 MG TABLET 1 TAB PO BID BLOOD THINNER #180 (Reported) Entered as Reported by NIK BARRIENTOS on 06/16/16 1537 Scheduled PRN Medications Lorazepam 0.5 MG TABLET 1 TAB PO BIDP PRN ANXIETY #10 (Reported) Entered as Reported by NIK BARRIENTOS on 06/16/16 1538 Nitroglycerin 0.4 MG TAB.SUBL 1 TAB SL AD PRN CHEST PAIN #100 (Reported) Entered as Reported by NIK BARRIENTOS on 06/16/16 1539 Tramadol HCl 50 MG TABLET 1-2 TAB PO TID PRN pain #30 TAB Prescribed by ANITA MARTIN,[facility] on 06/17/16 Past History Past Surgical History Surgical History unobtainable Abuse/Trauma History Trauma History/Current Trauma: Denies Legal History Current Legal Status: none Have you ever been arrested? 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 Pt is agreeable to mental health treatment to cope with of brother Pt has been employeed for 32 years as a [employer] Physical Limitations (Interventions): none Psychiatric Treatment History Psych Treatment Psychiatric Treatment No Inpatient Treatment No Outpatient Treatment No Diagnosis by History: none Risk Factors: high anxiety/distress, isolate/no social support, poor impulse control, lives alone, male, limited support Substance Use/Abuse History Drug Use/Abuse minimum 12mo Hx Substances Used/Abused No Substance Abuse Treatment Substance Abuse Treatment Past Substance Abuse TX No Inpatient Treatment No Outpatient Treatment No Sexual History Sexually Active No # of partners 0 Sexual Orientation Heterosexual Sexual Concerns: no Education History Highest Level of Education: master's degree Preferred Learning Style: unable to assess at this time Current Mental Status Mental Status Orientation: Person, Place, Situation Affect: Blunted, Depressed, Flat, Hopeless Speech: Mumbled, Soft Neuro-vegetative: Appetite Decreased, Concentration Poor, Energy Decreased, Helpless, Loss of Interest, Sleep Disturbance Appearance Appearance- Dress/Hygiene: Pt is dressed in blue hospital gown, laying down in bed, poor eye contact, and disheveled long hair. Hygiene is poor. Behaviors Thought Process: Irrational Thought Content: WNL Memory: Impaired Insight: Poor SI/HI Risk Assessment - Minimum 6mo History- Past Suicidal Ideation/Attempts No Current Suicidal Ideation/Att Yes Past Homicidal Ideation/Att: No Current Homicidal Ideation/Attempts No Degree of Intent: States Intent Gravely Disabled: Lack of Insight, Poor Judgment Risk Factors: high anxiety/distress, isolate/no social support, poor impulse control, lives alone, male, limited support Lethality Ratin Needs/Init TX Plan/Goals: Mood stabilization and safety, individual and group therapy, medication evaluation and family meeting. AUDIT-C Questionnaire: AUDIT-C Questionnaire: Response Value ETOH use in the past year Never 0 # drinks typical/day Doesn't Drink 0 6 or > drinks per occasion Never 0 Total 0 DSM5/PS Stressors/Medical Prob Diagnosis' (DSM 5, Stressors, Medical): F32.2 Major depressive disorder, severe, single episode medical: pt reports coronary heart disease psychosocial: limited primary and social supports, bereavment issues Current GAF: 20 Comments: Pt is preoccupied with dying and joining his brother in .
--- NOTE | 2016-06-21 10:43 | NUR ---
PT SLEEPING, AWAKENS EASILY FOR VITAL SIGNS AND AM MEDICATIONS. MEDICATED WITH ALL 10 AM MEDS AT THIS TIME (BRILINTA, COREG, NORVASC AND ZOLOFT) PER ORDERS. OFFERS NO COMPLAINTS AT THIS TIME.
--- NOTE | 2016-06-21 10:45 | NUR ---
BEDSIDE REPORT GIVEN TO HYDRO OPERATOR EILEEN FROM [facility].
--- NOTE | 2016-06-21 10:54 | NUR ---
BELONGINGS BAG X 1 AND VALUABLES ENVELOPE X 1 GIVEN TO SECURITY FOR TRANSPORT TO [facility].
--- NOTE | 2016-06-21 11:57 | History & Physical ---
General Information and HPI MD Statement: I have seen and personally examined ITZEL GERARD and documented this H&P. The patient is a 66 year old M who presented with a patient stated chief complaint of " I want to ". 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 Patient said that he lost his younger brother very recently and since then he has been feeling very depressed and just wants to . He said that there is no meaning of life without his brother. He was very close to his brother. They did things together and now he has no meaning of life without him. He has been complaining off chest pain from last 1 months. He said that it is mainly located in the left side of his chest. He also claims that it is radiating to his neck and his jaw, it gets better when he lays down. Tramadol makes it better. He denies any shortness of breath, any nausea, any vomiting any dizziness or any abdominal pain. When asked he said he has a lot of things in his mind that she will do the patient himself when he gets out. Allergies/Medications Allergies: Coded Allergies: NO KNOWN ALLERGIES (10/31/11) Home Med list Amlodipine Besylate 10 MG TABLET 1 TAB PO DAILY HEART (Reported) Aspirin (Lo-Dose Aspirin EC) 81 MG TABLET.DR 1 TAB PO DAILY HEART HEALTH ( Reported) Atorvastatin Calcium 40 MG TABLET 1 TAB PO DAILY CHOLESTEROL (Reported) Carvedilol 25 MG TABLET 1 TAB PO BID HEART (Reported) Lorazepam 0.5 MG TABLET 1 TAB PO BIDP PRN ANXIETY (Reported) Nitroglycerin 0.4 MG TAB.SUBL 1 TAB SL AD PRN CHEST PAIN (Reported) 1st sign of attack; may repeat every 5 minutes until relief; if pain persists after 3 tablets in 15 minutes, prompt medical att Sertraline HCl 25 MG TABLET 1 TAB PO DAILY MENTAL HEALTH (Reported) Ticagrelor (Brilinta) 90 MG TABLET 1 TAB PO BID BLOOD THINNER (Reported) Tramadol HCl 50 MG TABLET 1-2 TAB PO TID PRN pain thirty...[id number] Past History Travel History Traveled to [place] past 21 day No Medical History Neurological: NONE Cardiovascular: CAD, CHF, myocardial infarction, STENTS 4 Respiratory: NONE Gastrointestinal: NONE Hepatic: NONE Renal: NONE Musculoskeletal: NONE Psychiatric: anxiety, depression Endocrine: NONE Blood Disorders: NONE Cancer(s): NONE Isolation History: Standard Surgical History Surgical History: non-contributory Past Family/Social History Family History Relations & Conditions if any BROTHER Relation not specified for: Tricuspid valve disorder Psychosocial History ETOH Use: occasional use Illicit Drug Use: denies illicit drug use Review of Systems Review of Systems Constitutional: Reports: see HPI. EENTM: Reports: see HPI. Cardiovascular: Reports: see HPI. Respiratory: Reports: see HPI. GI: Reports: see HPI. Genitourinary: Reports: see HPI. Musculoskeletal: Reports: see HPI. Skin: Reports: see HPI. Neurological/Psychological: Reports: see HPI. Exam & Diagnostic Data Last 24 Hrs of Vital Signs/I&O Vital Signs Date Time Temp Pulse Resp B/P Pulse O2 O2 Flow FiO2 Ox Delivery Rate 06/21 1044 98.2 89 18 154/100 93 Room Air 06/21 1043 89 154/100 06/21 1041 89 154/100 06/21 0827 97.0 74 18 141/91 97 Room Air 06/21 0623 97.6 60 18 144/79 97 Room Air 06/20 2359 97.6 86 18 150/83 97 Room Air 06/20 2245 98.2 92 16 162/74 06/20 2051 Room Air 06/20 1850 98.6 80 15 165/70 100 Room Air Intake & Output 06/21 1600 06/21 0800 06/21 0000 Intake Total Output Total Balance Patient 166 lb 185 lb Weight Physical Exam General Appearance Alert, Oriented X3, Cooperative, No Acute Distress Skin some scratch cronin on RUE HEENT PERRLA Neck Supple Cardiovascular Regular Rate, Normal S1, Normal S2 Lungs Clear to Auscultation Abdomen Normal Bowel Sounds, Soft, No Tenderness Neurological Cranial Nerves II through XII: intact Extremities No Clubbing, No Cyanosis, Normal Pulses Last 24 Hrs of Labs/Jens: Laboratory Tests 06/20/167: Urine Opiates Screen < 100.00, Methadone Screen < 40, Barbiturate Screen < 60, Ur Phencyclidine Scrn < 6.00, Amphetamines Screen < 100, U Benzodiazepines Scrn < 85, Urine Cocaine Screen < 50, Urine Cannabis Screen < 5.00 06/20/161948: Anion Gap 10, Estimated GFR > 60, BUN/Creatinine Ratio 21.8, Glucose 97, Calcium 9.5, Total Bilirubin 0.9, AST 26, ALT 32, Alkaline Phosphatase 65, Total Protein 7.7, Albumin 4.4, Globulin 3.3, Albumin/Globulin Ratio 1.3, Triglycerides Pending, Cholesterol Pending, LDL Cholesterol, Calc Pending, HDL Cholesterol Pending, Cholesterol/HDL Ratio Pending, Vitamin B12 Pending, Folate Pending, TSH Pending, Free T4 Pending, Thyroxine (T4) Pending, CBC w Diff NO MAN DIFF REQ, RBC 6.28 H, MCV 60.0 L, MCH 18.9 L, RDW 17.6 H, MPV 8.6, Gran % 68.2, Lymphocytes % 20.4 L, Monocytes % 8.0, Eosinophils % 3.0, Basophils % 0.4, Absolute Granulocytes 4.5, Absolute Lymphocytes 1.4, Absolute Monocytes 0.5, Absolute Eosinophils 0.2, Absolute Basophils 0, PUBS MCHC 31.6 L, Salicylates < 1.0, Acetaminophen < 10.0 L, Serum Alcohol < 10.0 06/20/161928: Salicylates Cancelled, Acetaminophen Cancelled Diagnostic Data EKG Results Sinus rythm, PVCs. Assessment/Plan Assessment: 66-year-old male with past medical history significant for coronary artery disease, hypertension, hyperlipidemia, depression, chronic systolic congestive heart failure who is admitted to Inpatient Psychiatry with suicidal ideation with plans in mind to kill himself. He also complains of chest pain. EKG shows sinus rhythm with PVCs which has not changed significantly from previous EKG but no troponins were drawn in the emergency room. I will draw a set of troponin. I will continue him on his home medications for his coronary artery disease, hypertension, hyperlipidemia, CHF as well as depression. His other labs look okay and his lipid profile is pending. Patient claims that he has not been taking his medications from last couple of months and his appetite has been poor. I believe the psychiatry management for his SI up with a psychiatrist. I will continue his tramadol for his chronic pain. As Ranked By This Provider Problem List: 1. Major depression 2. Chest pain syndrome 3. Chronic pain 4. CAD (coronary artery disease) 5. HTN (hypertension) 6. CHF (congestive heart failure) 7. Hyperlipidemia Miscellaneous Miscellaneous Documentation Attending Case Discussed With: Sheila Hussein MD. 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
[2016-06-21 12:08] VITALS: BP 134/93
--- NOTE | 2016-06-21 12:59 | NUR ---
Admission Assessment: Patient presents as flat, irritable, disinterested, and vague. Patient reports he has not showered in 1 week, has a 20 lb. weight loss and wants to . "Do you remember Luz Elena Shepherd and nAna Jose- my brother and that's me." He reports that the grief has paralyzed him and that he is beyond help-"I will - I know how to do it". Patient reports since brother a few weeks ago that he has not functioned and just wants to be with his brother. The patient has superficial scratches on his right wrist and states he doesn't know how he got them. High risk suicide precautions in place.
[2016-06-21 16:16] VITALS: BP 141/81
--- NOTE | 2016-06-21 17:39 | CPS MD/APRN INITIAL ASSE PSYCH ---
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 Chief Complaint: "I just want to . I have various ways but I won't tell you." Reaction to Hospitalization: initially ambivalent but now believes "I needed it" History of Present Illness Onset of Illness: patient became acutely suicidal in the immediate wake of his younger brother's sudden, untimely, unexpected Circumstances Leading to Admission: sudden of his brother who was his closest friend and roommate for many years Problem(s) Justifying Need for Admission: --acute suicidality/preoccupation with suiciding in order to "join my brother in " Other HPI: denied; claims things were going well recently though apparently has had longstanding antagonism with administrators in [facility] "who think I'm crazy and trying to get rid of me;" told me he won a large lawsuit against [facility] around his "punitive demotion" and won back pay and damages Past Psychiatric History Past Diagnosis(es)- if any: unkown Past Precipitating Factors- if any: unknown - Include inpatient and outpatient treatment Treatment History: denies; "I was evaluated once by a psychiatrist in [facility] who said I was 'unique but not crazy.'" History of Suicide Attempts or Gestures denied Substance Abuse History: denied Allergies: Coded Allergies: NO KNOWN ALLERGIES (10/31/11) Home Med List: (no home medications prior to initial E.D. 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 everyday on [employer]--his brother used to drive him to the [place] train station everyday) Legal: has filed at least one lawsuit with the [employer] and said "I won it...you can look me up on [employer] Other Social History: noncontributory at this time Healthly Behaviors Screening Tobacco Screening Tobacco Use from ED Docu: Never used - If tobacco counseling indicated - the following topics are required. - #1 Recognizing dangerous situations. - #2 Coping Skills. - #3 Basic information about quitting. Status of Tobacco Cessation Counseling: N/A B/C NO TOB USE Cessation Med Status: No Tobacco Use last 30d Alcohol Screening - ETOH screen POS if BAL >=80 or Audit-C>= M4/F3 Audit-C Score from Diag Assess: 0 Blood Alcohol Level: Laboratory Tests 06/20 1948 Toxicology Serum Alcohol (<10 MG/DL) < 10.0 Alcohol Use Screening Results: Neg per Audit C &/or BAL - If ETOH counseling indicated - the following topics are required. - #1 Express concern about the patient's - drinking at unhealthy levels, include informing - of national norms for moderate drinking: - men <= 14 drinks/week, max 4 drinks/occasion - women <= 7 drinks/week, max 3 drinks/occasion - #2 Providing feedback, including linking alcohol to - negative physical effects (liver injury, hypertension) - negative emotional effects (relationship problems and - depression) - negative occupational consequences (reduced work - performance) - #3 Advising the patient to abstain from alcohol or - to drink below national norms for moderate drinking - (as listed above). Status of ETOH Use Counseling: N/A B/C NO ETOH Use Metabolic Screening - Screen if on a Neuroleptic Medication - Metabolic screening should include: - Blood Pressure, BMI, Glucose or Hgb A1c, & a - Lipid profile from within the past 365 days. Metabolic Screening ([X]) Not Applicable, patient not on a neuroleptic. OR () Patient on a neuroleptic(s) . Enter below results for Glucose or Hemoglobin A1C, and lipid panel if obtained during the last 365 days. BMI: 23.000 Blood Pressure: 132/94 Laboratory Results (If applicable): Exam and Plan Mental Status Examination Ambulation Status: without assistance Appearance: large man with kothari "pony tail" down his back Attitude towards examiner: positive Psychomotor activity: somewhat increased and restless, with legs moving in and out in synchrony touching at the knees in a rather nervous-looking manner (most likely these movements are volitional) Behavior: rather idiosyncratic, mildly pressured Quality of speech: normal except for some pressure Affect: constricted, occasionally smiling somewhat oddly Mood: mixed, somewhat labile Suicidal Ideation: acknowledged active suicidality [employer] and some "thoughts" still (is currently on 1 :1 sitter) but denied intent in hospital and able/willing to provide a safety pledge/promise for here Homicidal Ideation: denied Hallucinations: denied; no evidence of Paranoid/Delusional Material: not frankly paranoid or floridly delusional but some of what he said seemed rather bizarre Difficulties with thought organization: thoughts appear scattered, disorganized, with nonsequitors, repetitive thoughts/ statements/questions Insight: not more than fair Judgment: questionable Orientation: to person, place and situation Cognition: while not formally thought disordered did not appear to be thinking clearly in a coherent, goal-directed manner Memory Function: sketchy, uneven Estimate of intellectual functioning: average Assets/Strengths Patient Identified Assets/Strengths: --has an M.S.W. 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 from his very recently brother who "just made me his beneficiary a week before he ...is that wierd or what?" Impression/Plan Impression and Plan: Patient may be experiencing a degree of cognitive disorganization, disorder in the wake of his younger brother's untimely ; patient cannot understand why brother while he himself is the one with the heart problems and was saved from them just "to suffer the agony of having my brother ." Though patient initially appeared depressed in the E.D. (per Crisis) [employer], he might have an untreated bipolar spectrum disorder in which case prescription of Zoloft could be problematic. More corollary information is needed from family (apparently he was brought into the E.D. by a male cousin). - Include all active medical diagnosis that require tx DSM 5 Diagnosis(es): Unspecified Mood Disorder with acute suicidality in the wake of brother's sudden R/O unspecified brief but dramatic grief reaction; possibly a brief psychotic episode R/O Unspecified Depression R/O Unspecified Bipolar (spectrum) Disorder R/O substance use disorder (has been actively seeking out pain medication and benzodiazepines since presentation--even asked me to "promise" him I would send him home "on Ativan" - Initial Tx Plan for Active Psych & Medical Conditions Treatment Plan: For the present I will slow down the upward titration in dose of Zoloft (by 06/24 patient will be on no more than 50mg daily) and give low dose Ativan as HS and PRN with a back-up of low dose Abilify; both of these medications are said to have low incidences of QT prolongation (and patient has borderline prolonged QT interval on EKG, 06/21/2016 (QTc = 482). Patient has already requested to see me on an outpatient basis, so he may have a positive attitude with regard to aftercare; he should likely be encouraged to take FMLA from his social work position in [facility] and attend IOP locally (here or at [facility]). - Factors that would help patient function - in a less restrictive setting. Factors: --rapid clearing of mental status --positive attitude towards aftercare (?IOP) --ability to collect corollary history/background information from family which might aid in diagnosis and resolution of acute symptomatology/lability
[2016-06-21 19:52] VITALS: BP 132/94
--- NOTE | 2016-06-21 21:41 | NUR ---
PT IS CALM, COPPERATIVE WITH STAFF AND PEERS, AND COMPLIANT WITH UNIT RULES. PT IS IN [place] MOST OF THE TIME, AND IS INTERACTING WELL WITH STAFF/PEERS. MOOD IS STABLE, AFFECT APPEARS EUTHYMIC TO FULL RNAGE, COMMUNICATION IS ORGANIZED AND APPEARS NORMAL IN ALL RESPECTS, AND APPETITE IS NORMAL. PT DENIES SI AT THIS TIME.
--- NOTE | 2016-06-22 06:38 | NUR ---
PATIENT WAS BRIEFLY AWAKE ONCE, AGAIN TALKING ABOUT HOW WONDERFUL HE THOUGHT UNIT STAFF WERE, OTHERWISE SLEPT ALL NIGHT.
[2016-06-22 09:59] VITALS: BP 152/99
--- NOTE | 2016-06-22 12:15 | CP SOUTH PROGRESS NOTE PSYCH ---
Psych (Inpt) Progress Note Progress Note Include the following elements, when applicable: Involvement in the active treatment of the patient with behavioral observations of the patient and the patient's response to the treatment. Review of the ongoing treatment process in the context of the treatment plan. Indication of how multi-disciplinary staff members are carrying out the treatment plan. Plans for future interventions and recommendations for revision of the treatment plan. Liaison with other physicians/providers. Progress Note: Notes rev'd, pt d/w nursing staff. Interviewed patient this morning. Upset that he continues on a 1:1 safety monitor. Says "I'm fine", though doesn't elaborate, and then backtracks and says "well I have been going through some awful stuff". He is vague regarding SI but denies HI. Denies psychotic sx's. He ultimately sees the unit's concern about safety and accepts to remain on safety monitor for the time being. Vitals with mild htn o/w wnl. Labs essentially wnl. MSE: Poorly groomed CM appears slightly older than stated age. Unkempt hair and poor dentition. Fair eye contact. No pmotor agitation/retardation. speech wnl. Mood "I'm going through a lot". Affect constricted, irritable, congruent. TP perseverative, TC focused on safety monitoring. +vague SI, denies HI. Denies percept disturbance. Cognition grossly intact. I/J fair. A/P: Remains depressed, irritable, guarded about SI. Continue safety monitor for now and remainder of plan per primary team.
--- NOTE | 2016-06-22 12:55 | NUR ---
PT IS GENERALLY CALM AND RESPECTFUL TO STAFF, ADAMATELY DENYING SI AND WANTING HIS SITTER DISCONTINUED, THIS WAS DISCUSSED WITH TEAM AND ON-CALL PSYCHIATRIST DR. SONI AND DECISION WAS MADE REGARDING OVERALL SAFETY AND ALTHOUGH PT HAS BEEN FORTHCOMING AND HONEST AT THE TIME OF ADMISSION RE: HARMFUL THOUGHTS, THE STAFF FELT IT WAS IN THE BEST INTEREST OF THE PT'S SAFETY TO KEEP WITH A 1:1 SITTER UNTIL FURTHER NOTICE AND MOST LIEKLY UNTIL THE TREATING TEAM ADDRESSES/DECIDES FURTHER ON FRIDAY. PT VOCIED FRUSTRATION BUT DID ACKNOWLEDGE THAT HE IS GOING THROUGH A LOT AND THAT THE UNIT HAS HIS BEST INTERESTS IN MIND AND WILL COMPLY WITH THE 1:1, DR. SONI DID FEEL IT WAS OK/APPROPRIATE TO ATLEAST GIVE THE PT BACK FEEDING PRIVILEDGE OF DISCONTINUING THE FINGER FOOD DIET AND PLACING BACK ON REGULAR. PT VERBALIZED UNDERSTANDING, REPORTS GETTING SOME SLEEP LAST NIGHT AND FEELING SLIGHTLY BETTER SINCE BEING ON CP [facility]. HAS BEEN WITHDRAWN TODAY HOWEVER APPRORPIATE WHEN ENGAGED IN CONVERSATION. ATTENDED PLANNING MEETING FOR A SHORT WHILE AND DID NOT ATTEND THE AFTERNOON GROUP. PT REMAINS SAFE ON UNIT, DENYING SI, COOPERATIVE, MOOD STABLE WITH FULL RANGE AFFECT.
[2016-06-22 12:59] VITALS: BP 134/70
[2016-06-22 15:52] VITALS: BP 114/80
[2016-06-22 20:16] VITALS: BP 135/78
--- NOTE | 2016-06-22 21:44 | NUR ---
PT HAS HAD SEVERAL OUTBURSTS DIRECTED AT STAFF THROUGHOUT THE EVENING. AT TIMES APPEARING AGGITATED AND BECOMING ARGUMENTATIVE. PT IS APOLOGETIC AFTER OUTBURSTS. MOOD IS NOT STABLE, AFFECT IS APPEARS EUTHYMIC, CAN APPEAR SLIGHTLY ANXIOUS AND AGGITATED AT TIMES. COMMUNICATION IS ORGANIZED AND APPEARS NORMAL IN ALL RESPECTS. PT DENIES SI AT THIS TIME.
--- NOTE | 2016-06-23 05:09 | NUR ---
PT CONTINUES ON 1:1. PT WITH CONTINUED SUICIDAL IDEATION. PT WAS LOUD AND IRRITABLE AT POINTS ON EVENING SHIFT, BUT RETIRED TO BED AT 2200.
[2016-06-23 08:00] VITALS: BP 147/88
--- NOTE | 2016-06-23 10:34 | CP SOUTH PROGRESS NOTE PSYCH ---
Psych (Inpt) Progress Note Progress Note Include the following elements, when applicable: Involvement in the active treatment of the patient with behavioral observations of the patient and the patient's response to the treatment. Review of the ongoing treatment process in the context of the treatment plan. Indication of how multi-disciplinary staff members are carrying out the treatment plan. Plans for future interventions and recommendations for revision of the treatment plan. Liaison with other physicians/providers. Progress Note: Notes rev'd, pt d/w nursing staff. Interviewed patient this morning. Was sleeping prior to interview. Denies any current needs. REmains depressed, otherwise says he is feeling fine. Denies current SI/HI. Last evening per nursing staff intrusive, required security for redirection. Vitals with mild htn o/w wnl. No new labs. MSE: Poorly groomed CM appears slightly older than stated age. Unkempt hair and poor dentition. No EC today. No pmotor agitation/retardation. speech wnl. Mood "I'm still down". Affect constricted, mildly irritable, congruent. TP perseverative, TC focused on safety monitoring. denies SI, denies HI. Denies percept disturbance. Cognition grossly intact. I/J fair. A/P: Remains depressed, irritable, guarded. Given difficult to predict behavior would continue safety monitor for now.
--- NOTE | 2016-06-23 11:30 | NUR ---
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 HAS BEEN ISOLATING TO ROOM AND WITHDRAWN HOWEVER DID JUST LEAVE ROOMA ND ENTERED THE FOCOUS GROUP AT THIS TIME, NO ISSUES OR COMPLAINTS/IRRITABILITY NOTED OR REPORTED THUS FAR TODAY AND HAS BEEN COOPERATIVE WITH STAFF AND SITTER PARAMETERS, OOB FOR MEALS, MOOD STABLE WITH FLAT AFFECT.
[2016-06-23 12:09] VITALS: BP 131/77
[2016-06-23 16:56] VITALS: BP 121/69
[2016-06-23 20:04] VITALS: BP 149/88
--- NOTE | 2016-06-23 21:54 | NUR ---
PT IS NOT IN AT TIMES VERY UNCOOPERATIVE WITH STAFF AND ARGUMENTATIVE WITH PEERS. PT HAS HAD SEVERAL OUTBURST OF AGITATION WITH STAFF, BECOMING VERABLLY ABUSIVE AND IS VERY DIFFICULT TO RE-DIRECT AT TIMES. MOOD IS NOT STABLE, AFFECT IS MOSTLY EUTHYMIC, PERIODS OF LABILITY AND TEARFULLNESS, COMMUNICATION IS ORGANIZED, THOUGH LOUD AND PRESSURED AT TIMES, BECOMING HYPERVERBAL WHEN UPSET, AND APPETITE IS NORMAL. PT DENIES SI AT THIS TIME.
--- NOTE | 2016-06-24 06:05 | NUR ---
PT CONTINUES ON 1:1. PATIENT APPEARED TO SLEEP WELL. PT C VERBAL ALTERCATION C PATIENT DELROY Chowdary ON EVENINGS.
[2016-06-24 07:58] VITALS: BP 136/88
--- NOTE | 2016-06-24 08:08 | SOCIAL WORKER SOCIAL HX PSYCH ---
Social History Basic Assessment Insurance Authorization: Insurance #1: Insurance name: [employer] Phone number: Policy number: [id number] Group number: Authorization number: Curr Source of Income/Entitlements: employment Primary Care Physician: Patient's PCP: PATIENT HAS NO PRIMARY CARE DR PCP's Phone Number: Present Problem: SW spoke with the patients cousin, Dg Garcia ([phone]), for collateral information. Dg notes that he brought the patient in for evaluation tonight, as the patient has been making suicidal to his (Dg's ). Dg reports that the patient was living with his brother until his recent passing, noting that "his brother took care of him." Dg reports that the patient "can be very stable, up until he is not." Dg notes that the patient has some mental health issues, however has never been formally diagnosed. 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 Dg notes that the patient has had a very difficult time coping with the loss of his brother. Dg is not sure what would be most helpful, however does believe that he needs some mental health treatment. He would like to be called when the plan of care is decided. EVELINA BARBOZA CRIME INVESTIGATOR SPECIAL AGENT> 06/20/16 Pt is 66 yo single male presenting to the ED with severe suicidal feelings of wanting to and join his late brother who passed in May 2016. Pt stated " I have various plans in my head and I won't tell you." Pt UTOX was negative for substances. Pt stated he has no hx of mental health treatment/ substance abuse or IP hospitalizations. He said the of his younger brother ( 4 years) is too painful to bare and wants to join his brother. " We were inseparable ". He stated he cannot eat or drink anything, and sleep is horrible. " the ativan is helping". Pt denies hx AVH hallucinations, hx of legal issues and trauma. 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 Pt said he does not wish to return to work - he cannot think of anything else. Pt's hx is limited during consultation interview as he is preoccupied with dying. He said he does not feel counseling or group therapy would be helpful, however he is willing to be admitted to the hospital for mood stabilization and safety. LOIS JAIN CRIME INVESTIGATOR SPECIAL AGENT> 06/21/16 Met with pt for social hx this morning. Social hx was very limited as pt kept asking "are we done yet. I want to rest." Pt expresses that he is very depressed because he can't live with out his brother. He denies active suicidual ideation. Primary Language? [place] Language(s) Spoken At Home: [place] Living Situation Rents or Owns Home? rents Other Living Arrangement: lives alone Feel Safe Where You Are Living No Feel Safe in Relationships? Yes Comments: Says he does not feel safe where he lives because he is not used to being there alone with out his brother. Allergies - Coded Allergies: NO KNOWN ALLERGIES (10/31/11) Current Medications - Scheduled Medications Amlodipine Besylate 10 MG TABLET 1 TAB PO DAILY HEART #30 (Reported) Entered as Reported by NIK BARRIENTOS on 06/16/16 153 Last Taken: 06/19/16 1000 Aspirin (Lo-Dose Aspirin EC) 81 MG TABLET.DR 1 TAB PO DAILY HEART HEALTH #30 (Reported) Entered as Reported by NIK BARRIENTOS on 06/16/16 153 Last Taken: 06/21/16 0800 Atorvastatin Calcium 40 MG TABLET 1 TAB PO DAILY CHOLESTEROL #30 (Reported) Entered as Reported by NIK BARRIENTOS on 06/16/16 1540 Last Taken: 06/19/16 1700 Carvedilol 25 MG TABLET 1 TAB PO BID HEART #60 (Reported) Entered as Reported by NIK BARRIENTOS on 06/16/16 153 Last Taken: 06/19/16 1000 Sertraline HCl 25 MG TABLET 1 TAB PO DAILY MENTAL HEALTH #30 (Reported) Entered as Reported by NIK BARRIENTOS on 06/16/16 1538 Last Taken: 06/19/16 1000 Ticagrelor (Brilinta) 90 MG TABLET 1 TAB PO BID BLOOD THINNER #180 (Reported) Entered as Reported by NIK BARRIENTOS on 06/16/16 153 Last Taken: 06/19/16 1000 Scheduled PRN Medications Lorazepam 0.5 MG TABLET 1 TAB PO BIDP PRN ANXIETY #10 (Reported) Entered as Reported by NIK BARRIENTOS on 06/16/16 1538 Last Taken: 1MG on 06/21/16 0900 Nitroglycerin 0.4 MG TAB.SUBL 1 TAB SL AD PRN CHEST PAIN #100 (Reported) Entered as Reported by NIK BARRIENTOS on 06/16/16 1539 Last Taken: 05/24/16 1000 Tramadol HCl 50 MG TABLET 1-2 TAB PO TID PRN pain #30 TAB [facility] 06[facility]16 Last Taken: 06/20/16 1000 Past History Past Medical History Neurological: NONE EENT: NONE Cardiovascular: CAD (with stenting procedure), CHF, myocardial infarction, STENTS 4 Respiratory: NONE Gastrointestinal: NONE Hepatic: NONE Renal: NONE Musculoskeletal: NONE Psychiatric: anxiety, bipolar disease (would list as a "rule out"), depression Endocrine: NONE Blood Disorders: NONE Cancer(s): NONE SUPREME COURT JUSTICE/Reproductive: NONE Past Surgical History Surgical History: non-contributory /Family History Place/Country of Origin: [place], [place] Childhood Family Constellation: Raised by his Mom with his younger brother Primary Childhood Caretakers: mother Family Life During Childhood: Was very close with Mom and brother. Father was not involved in his life. DCF Involvement? No Relationship w/Mother: Mom is . Was very close Relationship w/Father: Did not know his father Any Sibling(s)? Yes Sibling's Gender(s)/Age(s): male Sibling 1: Relationship w/Sibling(s): Brother . Pt and his brother were very close Relationship w/Friends: pt reports his cousin is supportive Abuse/Trauma History Trauma History/Current Trauma: Denies Legal History Have you ever been arrested No Number of Arrests: 0 Hx of Juvenile Legal Charges? No Hx of Adult Legal Charges? 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 No History of Blackouts? No ADL Limitations: none reported [place]/Social/Peer Relations cousin is his support Meaningful Activities: gardening Childhood Baptism: Baptism Current Sikhism Affiliation: Baptism Is Spirituality Important to You? yes Patient's Ethnicity: Citizen Of [place] Are There Developmental Issues? No Milestones Achieved: fine motor, gross motor Psychiatric Treatment History Psych Treatment Inpatient Treatment No Outpatient Treatment No Current Derrick Helper: none Treatment of Prior Episodes: no Diagnosis: none Psychodynamic Issues: loss of brother Risk Factors: high anxiety/distress, isolate/no social support, poor impulse control, lives alone, male, limited support Substance Use/Abuse History Drug Use/Abuse Substance Used/Abused No History Substance Abuse Treatment Substance Abuse Treatment Inpatient Treatment No Outpatient Treatment No Sexual History Sexually Active No # of partners 0 Sexual Orientation Heterosexual Sexual Concerns: no Education History Highest Level of Education: master's degree Number of College Years: 6 College Degree/Major: Social Work Preferred Learning Style: visual, auditory, experiential HX of Learning Difficulties: None reported Barriers to Learning: None reported Special Communication Needs: None reported Employment History Employment Employed Vocation/Occupational Hx: [employer] 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 of Jobs in Last 5 Years: 1 Attendance: Normal Performance: Good History Have You Been in The ? No Current Mental Status Problem List: 1. Major depression Mental Status Orientation: Person, Place, Situation Affect: Blunted, Depressed, Flat, Hopeless Speech: Mumbled, Soft Neuro-vegetative: Appetite Decreased, Concentration Poor, Energy Decreased, Helpless, Loss of Interest, Sleep Disturbance Appearance Appearance- Dress/Hygiene: Pt is dressed in blue hospital gown, laying down in bed, poor eye contact, and disheveled long hair. Hygiene is poor. Behaviors Thought Process: Irrational Thought Content: WNL Memory: Impaired Insight: Poor SI/HI Risk Assessment Past Suicidal Ideation/Attempts No Current Suicidal Ideation/Att Yes Past Homicidal Ideation/Att: No Current Homicidal Ideation/Attempts No Degree of Intent: States Intent Gravely Disabled: Lack of Insight, Poor Judgment Risk Factors: High Anxiety/Distress, Isolated/no social suppor, Lives alone, Male Lethality Ratin - Conclusion and Recommendations for treatment - and discharge planning Summary: Nato spoke with the patients cousin, Dg Garcia ([phone]), for collateral information. Dg notes that he brought the patient in for evaluation tonight, as the patient has been making suicidal to his (Dg's ). Dg reports that the patient was living with his brother until his recent passing, noting that "his brother took care of him." Dg reports that the patient "can be very stable, up until he is not." Dg notes that the patient has some mental health issues, however has never been formally diagnosed. 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 Dg notes that the patient has had a very difficult time coping with the loss of his brother. Dg is not sure what would be most helpful, however does believe that he needs some mental health treatment. He would like to be called when the plan of care is decided. EVELINA MACIELLLO CRIME INVESTIGATOR SPECIAL AGENT> 06/20/16 Pt is 66 yo single male presenting to the ED with severe suicidal feelings of wanting to and join his late brother who passed in May 2016. Pt stated " I have various plans in my head and I won't tell you." Pt UTOX was negative for substances. Pt stated he has no hx of mental health treatment/ substance abuse or IP hospitalizations. He said the of his younger brother ( 4 years) is too painful to bare and wants to join his brother. " We were inseparable ". He stated he cannot eat or drink anything, and sleep is horrible. " the ativan is helping". Pt denies hx AVH hallucinations, hx of legal issues and trauma. 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 Pt said he does not wish to return to work - he cannot think of anything else. Pt's hx is limited during consultation interview as he is preoccupied with dying. He said he does not feel counseling or group therapy would be helpful, however he is willing to be admitted to the hospital for mood stabilization and safety. LOIS JAIN CRIME INVESTIGATOR SPECIAL AGENT> 06/21/16 Met with pt for social hx this morning. Social hx was very limited as pt kept asking "are we done yet. I want to rest." Pt expresses that he is very depressed because he can't live with out his brother. He denies active suicidual ideation.
--- NOTE | 2016-06-24 10:19 | NUR ---
Patient with abnormal EKG. Discussed EKG's with Dr. Ruelas - she will be down to see the patient.
--- NOTE | 2016-06-24 11:57 | NUR ---
SPOKE WITH DR MARSHALL, EKG SHOWN TO GREENHOUSE FLORIST, DR ERVIN. NO ADDITIONAL ORDERS NEEDED AT THIS TIME
[2016-06-24 12:10] VITALS: BP 127/84
--- NOTE | 2016-06-24 12:48 | NUR ---
Dr. Ruelas called and stated that Dr. Calvillo had reviewed the EKG's. No new orders.
--- NOTE | 2016-06-24 13:12 | Event Note ---
Event Note Event Note: Called in by RN to review the EKGs, All EKGs reviewed with Dr. Calvillo. No acute change, actually the last one is little better. No further changes in management.
--- NOTE | 2016-06-24 13:26 | NUR ---
PT IS ISOALTIVE IN ROOM AT TIMES, OUT IN COMMUNITY AT OTHER TIMES. PT INTERACTING WITH STAFF AND PEERS AT TIMES. PT IS ATTENDING SOME GROUPS. PT IS WITHDRAWN AT TIMES. PT HAS BEEN COMPLIANT TODAY. PT MOOD IS STABLE WITH A CONSTRICTED AFFECT. PT DENIES SI THOUGHTS
--- NOTE | 2016-06-24 15:24 | SOCIAL WORKER PROG NOTE PSYCH ---
Social Work Progress Note Progress Note patient seen individually, while in bed, and stating that he was very despondent and "will I ever get over it ?"---referring to the of his brother with whom he has shared his life almost exclusively. Patient was able to provide some information, but clearly sought to terminate, and I did not force patient to go on past the point of upsetting him. I spoke with Dr Jaeger, sharing concerns and observations, and Dr Jaeger indicated that he would be considering different medications. Did continued stay review with Lydia from [facility] in [place] who did authorized additional days with next review due on June 26. Reviewer wants name of patients primary care doctor, who I learned is Dr [place]ir[place] but patient did not have phone number. Later I went to a group to get telephone number for his cousin, Dg to set up a family meeting, but we were asked to leave, as patient did not want to participate in the group, but was otherwise disturbing the group; so when I asked him for the number, it was an excuse for the leader to get him to leave. Patient affect was very different lare afternoon, and he was rather emphasizing that he likes to do things his way. He did not appear as depressed later, and more focused on getting snacks. Mood seems to change quickly. Have left message for cousin to try to set meeting up.
[2016-06-24 15:56] VITALS: BP 136/77
--- NOTE | 2016-06-24 16:21 | CP SOUTH PROGRESS NOTE PSYCH ---
Psych (Inpt) Progress Note Progress Note Include the following elements, when applicable: Involvement in the active treatment of the patient with behavioral observations of the patient and the patient's response to the treatment. Review of the ongoing treatment process in the context of the treatment plan. Indication of how multi-disciplinary staff members are carrying out the treatment plan. Plans for future interventions and recommendations for revision of the treatment plan. Liaison with other physicians/providers. Progress Note: PSYCHIATRIST NOTE, 06/24/2016: I discussed this patient's presentation and slow progress to date, current mental status, treatment and discharge planning with staff team today in the daily morning ITTM and met with him again myself in individual session. Patient continues to demonstrate a rather odd affect, professing profound grief while at the same time speaking in an almost casual tone of voice. He frequently asks for reassurance that he will recover from his brother's recent , and we spoke for a while about the normal process of grieving and that this takes time. I discussed with patient my recommendation that he follow up in the [facility] for additional support during the early stages of dealing with his loss. I also asked him about setting up a family meeting; the male cousin (ayad Coates.) who brought him into the E.D. was the only participant patient could think of at this time; we should have a meeting within 1-2 days. Patient took a PRN dose of Abilify, 2mg, at a little after 5pm today and felt "it helped" him with his muddled thoughts and agreed following discussion of R/B/SE to start on a low dose (5mg) at HS tonight; I am also more comfortable continuing the SSRI trial with a neuroleptic agent on board as well.
[2016-06-24 19:34] VITALS: BP 153/91
--- NOTE | 2016-06-24 21:44 | NUR ---
PT IS IN [place], WITHDRAWN TO AN EXTENT, LIMITED INTERACTION WITH PEERS. LETHARGIC AT TIME, SLEEPING FOR PERIODS THROUGHOUT THE EVENING. MOOD IS STABLE, AFFECT IS EUTHYMIC, COMMUNICATION IS ORGANIZED AND APPEARS NORMAL IN ALL RESPECTS, AND APPETITE IS NORMAL. PT DENIES SI AT THIS TIME.
--- NOTE | 2016-06-25 03:39 | NUR ---
slept fairly well, up times 2 for bathroom
[2016-06-25 07:41] VITALS: BP 150/78
[2016-06-25 12:30] VITALS: BP 131/88
--- NOTE | 2016-06-25 12:53 | NUR ---
PT IS COMPLIANT AND COOPERATIVE WITH UNIT RULES. PT IS OUT IN COMMUNITY, MINIMAL INTERACTION WITH STAFF AND PEERS. PT IS ISOALTIVE IN ROOM AT TIMES. PT HAS ONLY ATTENDED ONE GROUP TODAY. PT MOOD IS STABLE WITH A CONSTRICTED AFFECT. PT DENIES SI THOUGHTS.
--- NOTE | 2016-06-25 14:05 | SOCIAL WORKER TX PLAN PSYCH ---
Treatment Plan - Please Document: - Evidence that there is ongoing collaboration between - the patient and the interdisciplinary team, - including the patient's active participation and - responsibility for engaging in the treatment regimen, - and that the treatment plan is individualized and - relevant to the patient's conditions. - Treatment plan should reflect documentation indicating - that all active therapeutic efforts are included. 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
--- NOTE | 2016-06-25 15:15 | CP SOUTH PROGRESS NOTE PSYCH ---
Psych (Inpt) Progress Note Progress Note Include the following elements, when applicable: Involvement in the active treatment of the patient with behavioral observations of the patient and the patient's response to the treatment. Review of the ongoing treatment process in the context of the treatment plan. Indication of how multi-disciplinary staff members are carrying out the treatment plan. Plans for future interventions and recommendations for revision of the treatment plan. Liaison with other physicians/providers. Progress Note: PSYCHIATRIST NOTE, 06/25/2016: I discussed this patient's progress to date, current mental status, treatment and discharge planning with staff team today in the daily morning ITTM and also met with him again myself in individual session. 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 He is willing to f/u in the behavioral health IOP. I discussed with him having a family meeting with his cousin (with whom he had been staying right after brother's recent untimely at work) prior to discharge. He reports a calming and clarifying effect from his current medications but tends to credit the Ativan more for this than the Zoloft and/or Abilify; he is willing to double current dose of Abilify to 10mg HS tonight; he has used only a single Ativan PRN today which would give him a total of only 2mg today, counting HS dose; I continue discussion with patient of addictive properties of Ativan; he refers to it as "a narcotic" but still feels it is of benefit to him at this time. Patient reports good sleep with combination of Abilify, Ativan and trazodone.
--- NOTE | 2016-06-25 15:31 | SOCIAL WORKER PROG NOTE PSYCH ---
Social Work Progress Note Progress Note Patient continued to exhibit variable mood on unit, at some points appearing depressed, and then at others seemingly content; but still asking about how he will get over the of his brother. Call made to cousin of patient in an attempt to try to have a family meeting with the only person whom patient can identify as being any other contact that he has. Calls made, but no respose obtained from messages left. Patient continues to be somewhat intrusive on unit, although less so than he had been the day before. Patient verbalized to me that he was not opposed to the possibility of IOP; and this would be a logical place, Patient's {CP is Dr Stacy on [address] in [place]; and his compliance lead is is in same general area. Lydia will need to be contacted for additional time on 06-26-16. Her direct number is [phone] Authorization number is [id number] Juancho Chris # [id number] Patients cousin is Dg [phone]
[2016-06-25 15:40] VITALS: BP 126/79
[2016-06-25 19:45] VITALS: BP 140/66
--- NOTE | 2016-06-25 21:50 | NUR ---
PT IS COMPLIANT AND COOPEARTIVE WITH UNIT RULES. PT HAS BEEN OUT IN COMMUNITY MORE INTERACING AT TIMES WITH STAFF AND PEERS. PT CAN BE VULGAR AT TIMES AND NEEDS TO BE REDIRECTED AWAY FROM SWEARING. PT MOOD IS STABLE WITH A CONSTRICTED AFFECT. PT DID ATTEND WRAP UP BUT WAS DISRUPTIVE. PT DENIES SI THOGUHTS.
--- NOTE | 2016-06-26 05:56 | NUR ---
PATIENT SLEPT UNTIL O445, GETTING UP TO BATHROOM ONCE; CURRENTLY SITTING IN LOUNGE TALKING WITH PEERS.
[2016-06-26 08:08] VITALS: BP 123/62
--- NOTE | 2016-06-26 11:08 | SOCIAL WORKER PROG NOTE PSYCH ---
Social Work Progress Note Progress Note Discussed Von in team meeting with Dr. Jaeger and staff his progress. Met with Von he was initially cooperative, stated he feels the medication is helping. He reported no SI/HI, no psychosis. He stated he slept well last night , appetite is "Ok, not great." He stated his depression and anxiety was unrateable on scale of 0/10. He was informed that [facility] is out of network , so he would have an out of pocket cost. Von prefers to go to an in-network outpatient or IOP in either [facility] or in [facility] (near where he works). 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 Phoned his cousin, Dg who agreed to come in for a family meeting tomorrow 06/27 at 1pm. Von became rather aggitated when I mistakenly referred to Dg as his brother. Von stated "My brother is , Dg is my cousin." Von stated he wants to stay in the hospital until Friday, doesn't want to go home tomorrow. After having a pleasant session with Von although his seemed mildly irritable, he escalated rather quickly when I informed his cousin, Dg that myself and Dr. Jaeger would be at the meeting, yelled how he didn't want me at the meeting, and tried to grab the phone out of my hand rather intrusively, without any warning. I handed the phone to Von and informed him that Nicho Davis LCSW would be at the [facility] with him and his cousin and Dr. Jaeger tomorrow. Updated Dr. Jaeger and nursing on Von's behavior. [facility] requested continued stay.
[2016-06-26 12:44] VITALS: BP 112/70
--- NOTE | 2016-06-26 13:18 | CP SOUTH PROGRESS NOTE PSYCH ---
Psych (Inpt) Progress Note Progress Note Include the following elements, when applicable: Involvement in the active treatment of the patient with behavioral observations of the patient and the patient's response to the treatment. Review of the ongoing treatment process in the context of the treatment plan. Indication of how multi-disciplinary staff members are carrying out the treatment plan. Plans for future interventions and recommendations for revision of the treatment plan. Liaison with other physicians/providers. Progress Note: PSYCHIATRIST NOTE, 06/26/2016: I discussed this patient's progress to date, current mental status, treatment and discharge planning with staff team today in the daily morning ITTM and also met with him again myself in individual session. Patient is tolerating increase in low dose Abilify (from 5mg to 10mg HS) well and reported sleeping well again last night on combination of Abilify, Ativan and trazodone. Patient continues with rather odd affect and variable mood but latter generally improving in last 24-48 hours. We have a family meeting scheduled for tomorrow, 06/27/2016, at 1pm with his cousin (who brought him into the E.D. for current admission after patient had been staying with him since brother's recent ); patient denied having any personal agenda for the meeting but said he didn't think he would be able to stay with cousin again following discharge. Patient received bad news about attending our IOP; it is not in-network for his insurance and the co-pay would be prohibitive (despite patient's claim that he is wealthy and even wealthier with the "$1,000,000.00" inheritance from his brother's estate. Patient expressed interest in attending [facility] as he is living in [place]/from [place], [place]. He also spoke about possibly being referred to a [facility] psychiatrist through his PCP on [address] [place] [address]. Patient has an odd, almost detached, affectless way of speaking about his grief over brother's and how "close" they were.
--- NOTE | 2016-06-26 14:21 | NUR ---
PT IS COMPLIANT AND COOPERATIVE. MOOD IS STABLE WITH A CONSTRICTED AFFECT. PT DENIES SI AT THIS TIME, NO COMPLAINTS OFFERED. PT MOOD IS LESS LABILE AND PT IS LESS TEARFUL AND IRRITABLE. PT HAS BEEN PRESENT MORE ON THE UNIT AND INTERACTING WITH PEERS AND STAFF. PT IS ATTENDING GROUPS. VITALS ARE STABLE, APPETITE IS GOOD.
[2016-06-26 15:41] VITALS: BP 142/85
[2016-06-26 19:28] VITALS: BP 155/96
--- NOTE | 2016-06-26 21:14 | NUR ---
PT IS COOPERTAIVE WITH STAFF AND PEERS, SPENDING TIME IN [place]. MINIMAL INTERACTION WITH PEERS, THOUGH WILL INTERACT WHEN ENGAGED. PT APPEARS STABLE AT TIMES, THOUGH WILL BECOME LABILE AND TEARFUL ON OCCASSION, ESPECIALLY WHEN TALKING WITH STAFF ABOUT CURRENT SITUATION WITH STAFF. COMMUNICATION IS ORGANIZED AND APPEARS NORMAL IN ALL RESPECTS AND APPETITE IS NORMAL.
--- NOTE | 2016-06-26 21:16 | NUR ---
PT DEIES SI AT THIS TIME.
--- NOTE | 2016-06-27 06:57 | NUR ---
PT APPEARED TO SLEEP WELL.
[2016-06-27 08:01] VITALS: BP 134/82
[2016-06-27 12:13] VITALS: BP 140/84
--- NOTE | 2016-06-27 13:20 | NUR ---
PT IS COMPLIANT AND COOPERATIVE. MOOD IS STABLE WITH A FULL RANGE OF AFFECT. PT DENIES SI AT THIS TIME, NO COMPLAINTS OFFERED. PT PRESENTS LESS IRRITABLE TODAY AND HAS NOT BEEN TEARFUL. PT IS PRESENT IN THE COMMUNITY AND INTERACTING WT PEERS AND STAFF. PT IS ATTENDING SOME GROUPS. VITALS ARE STABLE, APPETITE IS GOOD.
--- NOTE | 2016-06-27 14:12 | CP SOUTH PROGRESS NOTE PSYCH ---
Psych (Inpt) Progress Note Progress Note Include the following elements, when applicable: Involvement in the active treatment of the patient with behavioral observations of the patient and the patient's response to the treatment. Review of the ongoing treatment process in the context of the treatment plan. Indication of how multi-disciplinary staff members are carrying out the treatment plan. Plans for future interventions and recommendations for revision of the treatment plan. Liaison with other physicians/providers. Progress Note: PSYCHIATRIST NOTE (FAMILY MEETING), 06/27/2016: I discussed this patient's slow progress to date, current mental status, treatment and discharge planning with staff team today in the daily morning ITTCorrie and Mr. Davis and I met with him and his cousin Dg in a family session; the latter expressed appropriate concern for patient's welfare, safety and recovery from the untimely and devastating loss of brother; patient had stayed at cousin's home immediately after brother's sudden , through services until cousin became concerned about patient's mental state and brought him into the E.D. Cousin expressed his feeling that patient looks and acts better than when with him at home and hopes current improvement continues. I expressed my concern with patient returning directly home to the place he shared with brother in [place], [place]., that the setting would be likely to stir up memories which patient could find difficult to process and deal at this time. Cousin offered that patient could stay with he and his for a while after discharge from [facility]; patient agreed to this. We also discussed aftercare, attending [facility] [place] versus other programs which might be "in-network" with his insurance; after some discussion patient decided he would rather go to [facility] even if there were a higher co-pay as compared with other "in- network" programs. 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 Patient took two PRN's of Abilify, 5mg today with benefit and agreed to my increasing regular HS dose from 10mg to 15mg. Patient has not requested any PRN Ativan this far today, had had a total of 2mg/day for the last two days. Though he describes improvement in mood, hopefulness patient continues with constricted affect/very little affective range and speaking mostly superficially about his loss and plans for the future.
--- NOTE | 2016-06-27 15:14 | SOCIAL WORKER PROG NOTE PSYCH ---
Social Work Progress Note Progress Note Patient seen individually, prior to meeting with family. Patient vacillating about almost everything, including follow-up treatment; where he is going to live; whether or not he will be returning to work at all--or for how long. Patient does want follow-up, and I contacted the insurance reviewer, [employer]. Her name is Lydia and direct number is [phone]. She will get list together depending upon the area of [place] that patient works or finds most convenient Lydia called back to indicate that she can authorize IOP if needed, and her current knowledge, based upon talks with her upper management people indicate that [facility] IS in network; and that the IOP would be covered as well. Intake appt. made for 11:15 on Friday. Insurance will need to be called for additional time after today; so Lydia needs to be called tomorrow for additional time. Also, a very productive meeting was held with patient's cousin who is extremely supportive, and patient and Dr Jaeger and myself. Patient had been all over the place regarding his future plans; however, Dr Jaeger was firm about patient NOT returning to work in [facility]. Patient will also go to stay with cousin , Dg, who seems very willing and capable of helping patient and keeping him on track. Patient was very talkative throughout the meeting, but broke down crting several times when he mistakingly referred to his cousin as his () brother. He also stated that he felt trinh that he was already 66, and that he would not have long to live with this sadness. (His brother recently at age 59; and family does not have longevity in the history.) Patient was very concerned about finances; however he would be ageeable to [facility], whether or not there is a co-pay; although my understanding is that [facility] in network. Patient continues to be depressed, but has made good improvement this week. Still there is that passive suicidality. And, at this point patient has no hobbies or interests. "No I did everything with my brother"
[2016-06-27 16:44] VITALS: BP 134/86
[2016-06-27 20:08] VITALS: BP 150/98
--- NOTE | 2016-06-27 20:33 | NUR ---
PT IS VISIBLE ON UNIT, WATCHING TV IN LOUNGE AND SOCIALIZING WITH PEERS. AT TIMES PT CAN BECOME IRRITABLE AND DEMANDING BUT RESPONDS WELL TO REDIRECTION. OVERALL PT IS COOPERATIVE AND COMPLIANT WITH STAFF. NO COMPLAINTS OR SI REPORTED. PT HAS A STABLE MOOD AND LABILE AFFECT AT TIMES BUT IS MOSTLY FULL RANGE.
--- NOTE | 2016-06-28 04:49 | NUR ---
PT RECEIVED ATIVAN 1 PRN AT 0200 FOR ANXIETY AND "BAD DREAMS". PT APPEARED TO SLEEP AFTERWARDS.
[2016-06-28 07:55] VITALS: BP 142/83
--- NOTE | 2016-06-28 14:16 | NUR ---
PT IS COMPLIANT AND COOPERATIVE. MOOD IS STABLE WITH A CONSTRICTED AFFECT. PT DENIES SI AT THIS TIME, NO COMPLAINTS OFFERED. PT TENDS TO BE WITHDRAWN IN BED, SLEEPING DURING DAY. PT PRESENT ON UNIT AT TIMES, INTERACTING WTIH PEERS AND STAFF. PT ATTENDS SOME GROUPS. PT PRESENTS LESS IRRITABLE AND LABILE. VITALS ARE STABLE, APPETITE IS GOOD.
[2016-06-28 15:53] VITALS: BP 147/86
--- NOTE | 2016-06-28 16:11 | CP SOUTH PROGRESS NOTE PSYCH ---
Psych (Inpt) Progress Note Progress Note Include the following elements, when applicable: Involvement in the active treatment of the patient with behavioral observations of the patient and the patient's response to the treatment. Review of the ongoing treatment process in the context of the treatment plan. Indication of how multi-disciplinary staff members are carrying out the treatment plan. Plans for future interventions and recommendations for revision of the treatment plan. Liaison with other physicians/providers. Progress Note: PSYCHIATRIST NOTE, 06/28/2016: I discussed this patient's slow progress to date, current mental status, treatment and discharge planning with staff team today in the daily morning ITTM and met with him again myself in individual session. Patient had taken two 5mg PRN doses of Abilify earlier today for racing thoughts with benefit and without onset of sedation, restlessness or other side effects; he agreed to my increasing regular dose from 15mg to 20mg HS; patient wanted me to increase dose further but agreed to continuing to utilize PRN doses as needed, and for us to recalculate a final regular dose based upon use and usefulness of these. Almost every time I meet with patient his affect, mood, presentation in general are somewhat different and unpredictable/somewhat impulsive though the overall arc appears to be positive, and he is making sound decisions with regard to aftercare (e.g. staying with his cousin after discharge and attending the IOP rather than returning to work immediately). However, I continue to receive reports from nursing that at times patient can be irritable and get into heated confrontations with other patients, particularly D.N. Today, patient surprized me by declaring that he would "retire now." I suggested that he continue to follow the plan to go on FMLA first and is how he feels about this issue after some time in [facility]; I pointed out that though he is 66 now, his work has been providing a degree of satisfaction and structure which may well be good for him, at least over the next 6-12 months after his brother's and staying on for a time provide him with some space in which to develop a future plan for his life AFTER usp; right now he has very little structure outside of work and no longer has the lifelong companionship of his brother to fill much of that void.
[2016-06-28 20:01] VITALS: BP 143/94
--- NOTE | 2016-06-28 21:07 | NUR ---
PT IS CALM, COOPERATIVE WITH STAFF AND PEERS, AND COMPLIANT WITH UNIT RULES. PT IS OFTEN IN [place] AND IS INTERACTING WELL WITH OTHERS. MOOD IS STABLE, AFFECT IS EUTHYMIC, COMMUNICATION IS ORGANIZED AND APPEARS NORMAL IN ALL RESPECTS, AND APPETITE IS NORMAL. PT DENIES SI AT THIS TIME.
--- NOTE | 2016-06-29 05:43 | NUR ---
PATIENT SLEPT ALL NIGHT.
[2016-06-29 08:04] VITALS: BP 134/89
--- NOTE | 2016-06-29 11:07 | CP SOUTH PROGRESS NOTE PSYCH ---
Psych (Inpt) Progress Note Progress Note Include the following elements, when applicable: Involvement in the active treatment of the patient with behavioral observations of the patient and the patient's response to the treatment. Review of the ongoing treatment process in the context of the treatment plan. Indication of how multi-disciplinary staff members are carrying out the treatment plan. Plans for future interventions and recommendations for revision of the treatment plan. Liaison with other physicians/providers. Progress Note: Pt notes that he is "a little better today." He notes that he has been sleeping better. Does not want to go to [facility], "I don't like groups." Denies SI or HI. Denies AVHs. Current Medications Sig/Moises Start time Last Medication Dose Route Stop Time Status Admin Amlodipine Besylate 10 MG DAILY 06/22 1000 AC 06/29 PO 912 Aripiprazole 20 MG 0 06/280 AC 06/28 PO 212 Aripiprazole 15 MG 0 06/27 2200 DC 06/27 PO 212 Aripiprazole 5 MG Q4P PRN 06/24 2115 AC 06/29 PO 0658 Aspirin Buffered 81 MG DAILY 06/26 1000 AC 06/29 PO 0912 Atorvastatin Calcium 40 MG DAILY 06/22 1000 AC 06/29 PO 0912 Carvedilol 25 MG BID 06/21 2200 AC 06/29 PO 0912 Docusate Sodium 100 MG AT BEDTIME 06/22 2200 AC 06/28 PO 2124 Lorazepam 1 MG 0 06/25 2200 AC 06/28 PO 2124 Lorazepam 1 MG Q6P PRN 06/24 1645 AC 06/28 PO 1636 Sertraline HCl 75 MG 1000 06/29 1000 AC PO Sertraline HCl 50 MG 1000 06/23 1000 DC 06/29 PO 0913 Ticagrelor 90 MG BID 06/21 2200 AC 06/29 PO 0912 Tramadol HCl 50 MG Q8P PRN 06/21 1345 DC 06/21 PO 1801 Trazodone HCl 50 MG AT BEDTIME NEED.. 06/24 2100 AC 06/28 PO 2124 Vital Signs Date Time Temp Pulse Resp B/P Pulse O2 O2 Flow FiO2 Ox Delivery Rate 06/29 912 78 134/89 06/30 911 78 134/89 06/29 08 97.8 78 134/89 06/29 2123 77 143/94 06/28 2000 97.3 77 143/94 06/28 1553 76 147/86 MSE Appears as stated age. Cooperative behavior, good, appropriate eye contact. Nl speech rate and prosody. No psychomotor retardation or agitation. Mood a little better" Affect irritable, constricted, appropriate, non-liable. Linear and goal directed thought process. Denies SI or HI. Does not appear to be responding to internal stimuli. Denies AVHs, paranoia, or delusions. I/J: limited A/P: Pt with hx of MDD and worsening SI now with improved mood. - Increase sertraline to 75mg daily - Otherwise continue current medication regimen - Dispo planning alternative need to be made and pt now decling IOP
[2016-06-29 12:10] VITALS: BP 133/77
--- NOTE | 2016-06-29 12:35 | NUR ---
PT IS PRESENT WITHIN THE COMMUNITY HOWEVER CHOSE TO NOT ATTEND PLANNING OR FOCUS GROUP TODAY, NO ISSUES OR COMPLAINTS REPORTED OR OBSERVED, VSS, MOOD STABLE WITH FULL RANGE AFFECT, INTERACTING APPROPRIATELY WITH PEERS AND STAFF THUS FAR.
[2016-06-29 16:03] VITALS: BP 139/67
[2016-06-29 19:49] VITALS: BP 145/91
--- NOTE | 2016-06-29 20:11 | NUR ---
PT ALTERNATES BETWEEN LAYING IN BED AND BEING OUT IN THE COMMUNITY. PT WAS JUST SOBBING IN THE [place] AND WHEN ASKED WHY HE REPLIED "MY BROTHER. WHY DO WE HAVE TO GO THROUGH THESE THINGS." PT WENT ON TO EXPLAIN HOW CLOSE HE WAS WITH HIS BROTHER. PT WAS TEARFUL BUT ABLE TO BE REDIRECTED TO HIS ROOM. PT CALMED DOWN AFTER SPEAKING WITH A MHW. VS ARE STABLE AND DENIES ANY SI/HI TO THIS MHW.
--- NOTE | 2016-06-30 06:05 | NUR ---
PATIENT SLEPT UNTIL 0500, NO ISSUES.
[2016-06-30 07:30] VITALS: BP 138/77
--- NOTE | 2016-06-30 09:39 | CP SOUTH PROGRESS NOTE PSYCH ---
Psych (Inpt) Progress Note Progress Note Include the following elements, when applicable: Involvement in the active treatment of the patient with behavioral observations of the patient and the patient's response to the treatment. Review of the ongoing treatment process in the context of the treatment plan. Indication of how multi-disciplinary staff members are carrying out the treatment plan. Plans for future interventions and recommendations for revision of the treatment plan. Liaison with other physicians/providers. Progress Note: Pt notes taht he is "not that bad," which was further characterized as "better than before." He notes that he slept well. Improved mood. Denies SI or HI. Denies AVHs. Perservative around increasing meds to max dosage. Reviewed titration of meds based on tolerability and effectiveness. Current Medications Sig/Moises Start time Last Medication Dose Route Stop Time Status Admin Amlodipine Besylate 10 MG DAILY 06/22 1000 AC 06/30 PO 0802 Aripiprazole 20 MG 2200 06/28 2200 AC 06/29 PO 2300 Aripiprazole 5 MG Q4P PRN 06/24 2115 AC 06/29 PO 1557 Aspirin Buffered 81 MG DAILY 06/26 1000 AC 06/30 PO 0802 Atorvastatin Calcium 40 MG DAILY 06/22 1000 AC 06/30 PO 0802 Carvedilol 25 MG BID 06/21 2200 AC 06/30 PO 0802 Docusate Sodium 100 MG AT BEDTIME 06/22 2200 AC 06/29 PO 2300 Lorazepam 1 MG 0 06/25 2200 AC 06/29 PO 2301 Lorazepam 1 MG Q6P PRN 06/24 1645 AC 06/29 PO 2002 Sertraline HCl 75 MG 1000 06/29 1000 AC 06/30 PO 0802 Sertraline HCl 50 MG 1000 06/23 1000 DC 06/29 PO 0913 Ticagrelor 90 MG BID 06/21 2200 AC 06/30 PO 0802 Trazodone HCl 50 MG AT BEDTIME NEED.. 06/24 2100 AC 06/28 PO 2124 MSE Appears as stated age. Cooperative behavior, good, appropriate eye contact. Nl speech rate and prosody. No psychomotor retardation or agitation. Mood not that bad" Affect irritable, constricted, appropriate, non-liable. Linear and goal directed thought process. Denies SI or HI. Does not appear to be responding to internal stimuli. Denies AVHs, paranoia, or delusions. I/J: limited A/P: Pt with hx of MDD and worsening SI now with improved mood. - Increased sertraline to 75mg daily, first dose 06/30 - Otherwise continue current medication regimen - Dispo planning alternative need to be made and pt now decling IOP
[2016-06-30 11:37] VITALS: BP 136/81
--- NOTE | 2016-06-30 13:33 | NUR ---
PT HAS BEEN PRESENT WITHIN THE COMMUNITY, INTERMITTENTLY INTERACTS WITH PEERS AND STAFF YET IS ABLE TO VERBALIZE NEEDS E.G., PRNS, VSS, MOOD STABLE WITH FLAT AFFECT, DID NOT ATTEND FOCUS GROUP.
[2016-06-30 15:53] VITALS: BP 149/87
[2016-06-30 19:12] VITALS: BP 144/89
--- NOTE | 2016-06-30 19:36 | NUR ---
PT IS LABILE, TEARFUL, WAS SEEN CRYING IN THE LOUNGE SITTING BY HIMSELF DUE TO HIS BROTHERS AND THEN A MOMENT LATER WAS LAUHGING WITH A PEER, PRESENT WITHIN THE COMMUNITY ALL EVENING SHIFT. PT REQUIRED SOME REDIRECTION WHEN ARGUING WITH PEER REGARDING THE TV CHANNEL THAT WAS ON, PT WAS SWEARING YET RESPONDED WELL WITH REDIRECTION FROM STAFF. VS ARE STABLE AND DENIES ANY SI/HI TO THIS MHW.
--- NOTE | 2016-07-01 07:03 | NUR ---
PATIENT SLEPT ALL NIGHT.
[2016-07-01 07:55] VITALS: BP 138/83
[2016-07-01 08:56] VITALS: BP 138/83
--- NOTE | 2016-07-01 09:56 | SOCIAL WORKER PROG NOTE PSYCH ---
Social Work Progress Note Progress Note Patient to discharge the hospital today. Patient denies SI/HI/AH/VH at present and reports feeling ready to return home. Patient has intake at [facility] today at 11:15AM, he does report some ambivalence to the program but has agreed to attend the intake and ultimately make final decision after that. Patient offers no complaints at present and is able to contract for safety.
[2016-07-01] MEDS ORDERED: TRAZODONE HCL50 M1 PO (10:08)
[2016-07-01] MEDS ORDERED: ABILIFY5 M1 PO (10:09)
--- NOTE | 2016-07-01 10:19 | CP SOUTH PROGRESS NOTE PSYCH ---
Psych (Inpt) Progress Note Progress Note Include the following elements, when applicable: Involvement in the active treatment of the patient with behavioral observations of the patient and the patient's response to the treatment. Review of the ongoing treatment process in the context of the treatment plan. Indication of how multi-disciplinary staff members are carrying out the treatment plan. Plans for future interventions and recommendations for revision of the treatment plan. Liaison with other physicians/providers. Progress Note: PSYCHIATRIST NOTE (DISCHARGE), 07/01/2016: I discussed this patient's slow progress to date, current mental status, treatment and discharge planning with staff team today in the daily morning ITTM and also met again with him myself in individual session prior to discharging him directly to intake at the [facility] for 12:45pm on this date. Patient continues asserting benefit from current medication regimen; dose of Zoloft had been increased from 50mg 75mg/day over this past weekend by covering psychiatrist, Dr. Duque; I concur with this change/increase, particularly given that Abilify dose has been titrated up to 20mg/day. 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 He denied alcohol consumption, or that of "hard" drugs, but has been a regular user of Marijuana over the years. I am very pleased that patient has agreed to follow up in the [facility], as there are still more questions to be answered; there is need for more time to elapse since his brother's to determine the extent of this loss psychologically, as well as physiologically, on patient. We confirmed with patient's male cousin this morning that the latter is willing to have patient stay with him and expecting patient at his home today; patient asserted to me today that he will be staying with cousin right after discharge; he understands my reasoning that the place which brother and he shared before the former's recent might initially evoke memories difficult for him to deal with at this time and perhaps for a while. I have called into [facility], [place], [place] on date of discharge: Zoloft, 25mg: iii(3) daily in AM (75mg/day); #42 with no refill (anti- depressant) Abilify, 20mg: i nightly at HS; #14 with no refill (clarify thinking, stabilize mood, augment SSRI) Abilify, 5mg: i PRN racing thoughts; #14 (patient is currently taking 20-25mg/day of Abilify) trazodone, 50mg: i nightly at HS (50mg/night); #14 with no refill (sleep induction) Ativan, 1m.5-1 tablet nightly (for reduction of anxiety at bedtime) patient was also discharged on and has adequate supplies to take: amlodipine, 10mg daily in AM (blood pressure management) carvedilol, 25mg 2x/day (heart health) ticagrelor, 90mg 2x/day (blood thinner) atrovastatin, 40mg daily (control lipids) enteric coated aspirin, 81mg daily (heart health)
--- NOTE | 2016-07-01 10:19 | DISCHARGE SUMMARY REPORT-PSYCH ---
Visit Information Visit Dates/Diagnosis' Admission Date: 06/21/16 Discharge Date: 07/01/16 Reason for Admission: "I just want to . 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 Psy Discharge Secondary Diag: CAD with history Angina & stenting Hospital Course Significant Lab Findings: glucose = 97; BUN = 24; WBC = 6.6, RBC = 6.28, HGB = 11.9, HCT = 37.7, MCV = 60.0, lymph 204%; NEMO = less than 10.0; urine for drugs of abuse--negative (for complete details of all normal range laboratory data from this admission, see the electronic medical record) Course Complications: none Consultations: patient was seen for an admission medical H&P by Norma Hussein M.D., and followed medically during this admission by the hospitalist staff/[facility] medical attending physicians Allergies: Coded Allergies: NO KNOWN ALLERGIES (10/31/11) Hospital Course/TX Response: (see also all admission assessments, daily M.DGail/MAINTENANCE APPRENTICE and THREAD PULLER progress notes, discharge note of 07/01/2016 and medical H&P from this admission in the electronic medical record) Initially, patient appeared to be experiencing a degree of cognitive disorganization in the wake of his younger brother's untimely and sudden ; he could not comprehend how his brother could of an apparent cardiac event when it was the patient himself who had the heart problems "and was saved just to suffer the agony of having my brother ..." Though 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 Though he was usually fairly unguarded and open with me in individual session, patient was at times irritable or even mildly physically provocative on the unit milieu. A family session was held with patient and a male cousin (the same relative who had brought him into the E.D. 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 Patient utilized PRN Abilify with benefit in reducing racing/ overactive or "dark" thoughts and agreed to start on a regular dose at as well. Though patient self-described steady improvement in mood over course of admission, as well as hopefulness for the future, affect remained generally constricted and occasionally somewhat odd/inappropriate. Discharge HBIPS - Tobacco Use Treatment Offered Post DC Medications Offered: NA-No Tob Use >30 days Post DC Tobacco Treatment Plan: NA-No Tobacco use >30days Program Appt Date: 07/08/16 - EtOH/Drug Use D/O Treatment Offered Post DC Medications Offered: NA-No EtOH/Drug Use D/O Post DC EtOH/SubAbuse TX Plan: NA-No EtOH/Drug Use D/O Metabolic Screening - Screen if on a Neuroleptic Medication - Metabolic screening should include: - Blood Pressure, BMI, Glucose or Hgb A1c, & a - Lipid profile from within the past 365 days. Metabolic Screening () Not Applicable, patient not on a neuroleptic. OR ([x]) Patient on a neuroleptic(s) . Enter below results for Glucose or Hemoglobin A1C, and lipid panel if obtained during the last 365 days. BMI: 23.000 Blood Pressure: 138/83 Laboratory Results (If applicable): glucose = 97 (all drawn on 06/20/2016) cholesterol = 159 triglycerides = 80 HDL = 42 LDL = 101 Discharge Instructions General Discharge Information Discharge Medications: Discharge Medications (dose, route, frequency, indications): (see also M.D. discharge note of 07/01/2016) I called into [facility], [facility], on date of discharge, 07/01/2016: Zoloft, 25mg: iii(3) tabs daily in AM (75mg/day); #42 with no refill (anti- depressant) Abilify, 20mg: i tab nightly at HS; #14 with no refill (clarify thinking, stabilize mood, augment anti-depressant) Abilify, 5mg: i tab PRN racing thoughts; #14 with no refill (patient is currently taking 20-25mg/day of Abilify) trazodone, 50mg: i tab nightly at HS (50mg/night); #14 with no refill (sleep induction) Ativan, 1m.5-1 tab nightly (to reduce anxiety around bedtime) patient was also discharged on and has an adequate supply to continue taking: amlodipine, 10mg: i tab daily in AM (manage/control blood pressure) carvedilol, 25mg tab 2x/day (heart health) ticagrelor, 90mg tab 2x/day (blood thinner, anti-embolic) atrovastatin, 40mg tab daily (control lipids) enteric coated aspirin, 81mg tab daily (heart health) (patient does not smoke tobacco or drink alcohol) Multiple Neuroleptics: ([x]) Not Applicable OR Document below three failed attempts at monotherapy, or a plan to taper to monotherapy, or augmentation of Clozapine. () Patient's Diet: regular Patient's Activity: without restrictions DC Disposition: to stay with male cousin in [facility] (not to return to his own home in [facility], until given clearance to do so by treaters in [facility] given that brother with whom he shared the place for many years recently [at work]) Recommendations: I would strongly recommend that patient be closely monitored for any evidence of a bipolar spectrum disorder, particularly as dose of Abilify is slowly tapered down/away. Referred To: Patient was referred directly to intake at the [facility] scheduled for day of discharge, 07/01/2016, at 12:45pm. Copies To: MADI FERNANDEZ MD; BROOKE BELTRAN LPC
[2016-07-01] MEDS ORDERED: ABILIFY10 M1 PO (10:29)
[2016-07-01] MEDS ORDERED: SERTRALINE HCL25 MG PO (10:29)
[2016-07-01] MEDS ORDERED: LORAZEPAM1 M1 PO (10:30)
--- NOTE | 2016-07-01 10:31 | NUR ---
will be discharged today to [facility] with f/u at [facility]. Mood is stable, denied thoughts of self harm when asked. blunted affect. social with peers and staff. Given education on suicide prevention and depression.
== END 2016-07-01 11:45 | DRG 885 ==
LOC: ERH 18:45 → ERHI 06-21 10:18 → CP SOUTH 06-21 10:18 → ENPENDDIS 06-21 10:18 → CP SOUTH 06-21 11:02
PROVIDERS: Physician Assistant Medical; ADMIT Psychiatry & Neurology Addiction Medicine
DX: F39 Unspecified mood [affective] disorder (principal); I25.10 Atherosclerotic heart disease of native coronary artery without angina pectoris; Z95.5 Presence of coronary angioplasty implant and graft
CPT/HCPCS: 80307; 93005; 93010; G0480; J0401; J3490

== ENCOUNTER 2017-04-13 16:21 | Inpatient (IN) | payer OTHER ==
[~2017-04-13] VITALS: Ht 180.3 cm; Wt 76.7 kg
[~2017-04-13 16:21] MED LIST changes: +ABILIFY10 M1 PO; +ABILIFY5 M1 PO; +LORAZEPAM1 M1 PO; +TRAZODONE HCL50 M1 PO
--- NOTE | 2017-04-13 16:43 | ED PSYCHIATRIC COMPLAINT ---
History of Present Illness General Chief Complaint: Psychiatric Related Complaint Stated Complaint: BIBA FOR PSYCH EVAL Source: patient, paper Exam Limitations: poor historian Vital Signs & Intake/Output Vital Signs & Intake/Output Vital Signs Date Time Temp Pulse Resp B/P B/P Pulse O2 O2 Flow FiO2 Mean Ox Delivery Rate 04/15 1252 97.7 87 136/83 04/15 1229 98.6 75 16 140/82 98 Room Air 04/15 1000 96.9 20 138/80 04/15 0549 96.9 74 20 138/80 97 Room Air 04/15 0148 18 04/14 2314 98.9 86 18 137/85 04/14 2314 98.9 86 18 137/85 04/14 2312 98.9 86 18 137/85 96 Room Air 04/14 1546 98.0 74 18 121/81 97 Room Air 04/14 1315 108/74 Reconcile Medications Amlodipine Besylate 10 MG TABLET 1 TAB PO DAILY HEART (Reported) Aripiprazole (Abilify) 5 MG TABLET 5 MG PO Q4P PRN irritable/irrational/labile /DFA Aripiprazole (Abilify) 10 MG TABLET 20 MG PO 2200 mood stabilization Aspirin (Lo-Dose Aspirin EC) 81 MG TABLET.DR 1 TAB PO DAILY HEART HEALTH ( Reported) Atorvastatin Calcium 40 MG TABLET 1 TAB PO DAILY CHOLESTEROL (Reported) Carvedilol 25 MG TABLET 1 TAB PO BID HEART (Reported) Lorazepam 1 MG TABLET 1 MG PO 2200 reduce anxiety at bedtime Nitroglycerin 0.4 MG TAB.SUBL 1 TAB SL AD PRN CHEST PAIN (Reported) 1st sign of attack; may repeat every 5 minutes until relief; if pain persists after 3 tablets in 15 minutes, prompt medical att Sertraline HCl 25 MG TABLET 75 MG PO 1000 anti-depressant Ticagrelor (Brilinta) 90 MG TABLET 1 TAB PO BID BLOOD THINNER (Reported) Trazodone HCl 50 MG TABLET 50 MG PO AT BEDTIME NEEDED PRN sleep induction/ insomnia Triage Nurses Notes Reviewed? yes Onset: Just prior to arrival Duration: worse persistent since (today) Timing: recent history Severity: severe Severity Numbers: 10 Associated Symptoms: suicidal ideation HPI: Patient is a 66-year-old male with history of major depression disorder presenting to the emergency department on a paper because patient reported today that he was going to hurt himself. Staff reported that Itzel was not acting normal and they were concerned for his safety. Therefore he has been pacing around the facility. Patient had be restrained and transported to the structure physically. Patient only responding by saying no and thank you. (Elba Rouse) Allergies Coded Allergies: NO KNOWN ALLERGIES (NONE 04/15/17) (Christopher Higginbotham MD) Past History Travel History Traveled to [place] past 21 day No Medical History Any Pertinent Medical History? 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 No (Elba Rouse) Review of Systems Review of Systems Constitutional: Reports: no symptoms. Comments Review of systems: See HPI, All other systems negative. Constitutional, no chills fever or weight loss HEENT: No visual changes no sore throat no congestion Cardiovascular: No chest pain ,palpitation Skin, no jaundice no rashes Respiratory: No dyspnea cough GI: No nausea no vomiting : No dysuria No hematuria Muscle skeletal: no back pain, no neck pain, Neurologic: No numbness Psych: Positive stress and anxiety Heme/endocrine: No bruising no bleeding no polyuria or polydipsia Immunology: No splenectomy or history of AIDS (Elba Rouse) Physical Exam Physical Exam General Appearance: disheveled Neurological/Psychiatric: awake, flat Comments: Well-developed well-nourished person in no acute distress HEENT: Atraumatic, normocephalic Neck: Normal inspection Respiratory: No respiratory distress Extremity: No edema Neuro: Alert oriented to person Skin: No appreciable rash on exposed skin, skin is warm and dry. Psych: Disheveled, appears slightly anxious, only answers with "thank you" and no". SAD PERSONS SAD PERSONS Response Value Male Sex? yes 1 Age <19 or >45 years? yes 1 Depression/Hopelessness? yes 2 Rational Thinking Loss? yes 2 Social Support? has no support 1 Total 7 SAD PERSONS Done? yes (Elba Rouse) Progress Differential Diagnosis: dementia, drug intoxication, drug overdose, drug withdrawal, electrolyte abnormality, hypoglycemia Plan of Care: Orders Procedure Date/time Status Patient Safety Monitor 04/15 1900 Active Patient Safety Monitor 04/15 1500 Active Vital Signs 04/15 1252 Active Inpt Psych Teach/Educate 04/15 1252 Active Nutritional Intake, Monitor 04/15 1252 Active Inpt Psych Auricular Acupunctu 04/15 1252 Active Admit to inpatient psych 04/15 1105 Active Patient Safety Monitor 04/15 1100 Active Patient Safety Monitor 04/15 0700 Active Intake & Output 04/13 1635 Active Current Medications Sig/Moises Start time Last Medication Dose Stop Time Status Admin Atorvastatin Calcium 40 MG 04/13 AC 04/14 (Lipitor) 2314 Bethanechol Chloride 25 MG TID 04/13 2199 AC 04/15 (Urecholine 25MG Tab) 1000 Carvedilol 25 MG BID 04/13 2199 AC 04/15 (Coreg) 1000 Tamsulosin HCl 0.8 MG 04/13 AC 04/14 (Flomax) 2314 Hand-Off Endorsed To: Bola Connelly MD Endorsed Time: 2099 Pending: consult, labs (Elba Rouse) Hand-Off Endorsed To: Arias Paz DO Endorsed Time: 07 Pending: consult (Bola Connelly MD) Hand-Off Endorsed To: Christopher Higginbotham MD Endorsed Time: 699 Pending: consult (Paula MARTIN,Nura Mcnamara) Departure Departure Disposition: STILL A PATIENT Condition: Stable Clinical Impression Primary Impression: Depression Qualifiers: Depression Type: unspecified Qualified Code: F32.9 - Major depressive disorder, single episode, unspecified Referrals: Patient Has No Primary Care Dr (PCP/Family) Departure Forms: Customer Survey General Discharge Information (Elba Rouse) PA/REIMBURSEMENT SPEC Co-Sign Statement Statement: ED Attending supervision documentation- [] I saw and evaluated the patient. I have also reviewed all the pertinent lab results and diagnostic results. I agree with the findings and the plan of care as documented in the PA's/REIMBURSEMENT SPEC's documentation. [x] I have reviewed the ED Record and agree with the PA's/REIMBURSEMENT SPEC's documentation. [] Additions or exceptions (if any) to the PAs/REIMBURSEMENT SPEC's note and plan are summarized below: [] (Maricel MARTIN,Bola oCoper) Departure Comments 04/14/17 5:36 PM The patient was signed out to me by Dr. Connelly at 7 AM. He has a history of bipolar disorder complains of depression with suicidal ideation. He was agitated and needed to be self-directed. He refused to take by mouth meds he was given 2 doses of 5 mg of im Haldol to control agitation. He is pending disposition by crisis. The patient will be signed out to Dr. Mitchell at 7 PM (Arias Paz DO) Psych Admission Note Psychiatric Admission: I have seen and evaluated ITZEL GERARD. I have also reviewed all the pertinent lab results and diagnostic results. ITZEL GERARD will be admitted to our inpatient Psychiatric unit for treatment and care. (Anahy MARTIN,Christopher)
[2017-04-13 17:23] LABS: ABSOLUTE BASOPHIL COUNT 0 /CUMM (0.0-0.2); ABSOLUTE EOSINOPHIL COUNT 0.4 /CUMM (0.0-0.7); ABSOLUTE GRANULOCYTE CT 3.9 /CUMM (1.4-6.5); ABSOLUTE LYMPH COUNT 1.1 /CUMM (1.2-3.4); ABSOLUTE MONOCYTE COUNT 0.5 /CUMM (0.10-0.60); BASOPHIL % 0.4 % (0.0-2.0); EOSINOPHIL % 5.9 % (0-5); GRANULOCYTE % 65.8 % (42.2-75.2); HEMATOCRIT 31.4 % (42-52); MEAN CORPUSCULAR HGB 18.7 PG (27.0-31.0); MEAN CORPUSCULAR HGB CONC 31.7 G/DL (33.0-37.0); MEAN PLATELET VOLUME 8.2 FL (7.4-10.4); PLATELET COUNT 219 /CUMM (130-400); RBC DISTRIBUTION WIDTH 19.6 % (11.5-14.5); RED BLOOD CELL CT 5.33 /CUMM (4.70-6.10); WHITE BLOOD CELL COUNT 5.9 /CUMM (4.8-10.8)
--- NOTE | 2017-04-13 21:02 | ED PSY CRISIS COLLATERAL NOTE ---
Collateral Note Collateral Note Family/Inform/Win Contacts: Spoke to Cortez pts cousin, he states he received a phone call from a nurse at [facility] where Von resides, and stated he was acting off the wall today, and saying things he shouldn't Ray didn't know the details of what he had said. He states his cousin has not been the same since his brother last year, he states they were so close best buddies forever. Cortez states he won't go to grief counseling but may need to be chemically re balanced if we would agree to that. Pt has not been having any trouble living at [facility] until the past 3 weeks.
--- NOTE | 2017-04-14 11:17 | ED PSYCH CRISIS CONSULTATION ---
Crisis Consult Basic Assessment Date of Consult: 04/14/17 Responsible Person/Accompanied By: self/biba Insurance Authorization: Insurance #1: Insurance name: [id number] H[employer] Phone number: Policy number: [id number] Group number: Authorization number: ED Provider: Patient's ED Provider: Elba Rouse Primary Care Physician: Patient's PCP: Patient Has No Primary Care Dr PCP's Phone Number: Current Psychiatrist: Dr Levi Harry PCP Chief Complaint: Psychiatric Related Complaint Patient's Quote: Im ok thanks Present Illness: Pt is a 66 yo male biba yesterday evening from [facility] on a [place]. Pt has a diagnosis of Major Depression and since has been making suicidal statements that he is going to kill himself so he can be with his brother who suddenly last May 2016. Following his brother's last May pt had two inpatient psychiatric admissions first at [facility] in June for SI and and at [facility] following a suicide attempt of medication o/d and attempt to slit his wrist. Pt cousin reports he spent 1 week on [facility] trauma unit then 2 weeks on their psych flooor. In July pt fell [place] a wall at the mall and broke legs and back and was hospitalized at [facility] for 1 month followed by rehab at [place] then step down to another rehab in [place]. Pt cousin reports he was wasting away at the rehab in [place]. He wouldn't eat or get out of bed. In the fall pt was moved to [facility] where cousin and staff report he initially responded well and appeared to get his appetite and energy back and displayed an improved mood. Since , pt has presented as more depressed and has made suicidal statements. Pt is generally isolative but past 48 hrs pt has been pacing, walking around facility in his underwear. Refusing medications on Friday. Repeating "im ok. Thank you". In ED pt refusing vitals, medications and to engage in consult. When crisis requests to meet with pt he keeps repeating "Im good or I'm okay thanks. Prior to pt admission to [place] last Spring he had no reported prior mental health hx. 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 Pt presents as disheveled, guarded and moderately agitated. Pt mental status safety risk assessment is unable to be fully determined as he will not engage in consult and keeps repeating "I'm good or I'm okay thanks. Due to recent reports of pt SI, medication refusal and deteriorating functioning pt will need inpatient psychiatric treatment. Patient's Address: [place] [address] Other Phone Number: Who Do You Live With? Other (see notes) (asst living facility) Family/Informants Interviewed: collateral provided by [facility] nurse Thuy and pt cousin Dg [phone] Allergies - Coded Allergies: NO KNOWN ALLERGIES (10/31/11) Current Medications - Scheduled Medications Amlodipine Besylate 10 MG TABLET 1 TAB PO DAILY HEART #30 (Reported) Entered as Reported by Roman Rendon on 06/16/16 1537 Aripiprazole (Abilify) 10 MG TABLET 20 MG PO 2200 mood stabilization #14 TAB Prescribed by Abilio Jaeger MD on 07/01/16 Aspirin (Lo-Dose Aspirin EC) 81 MG TABLET.DR 1 TAB PO DAILY HEART HEALTH #30 (Reported) Entered as Reported by Roman Rendon on 06/16/16 1539 Atorvastatin Calcium 40 MG TABLET 1 TAB PO DAILY CHOLESTEROL #30 (Reported) Entered as Reported by Roman Rendon on 06/16/16 1540 Carvedilol 25 MG TABLET 1 TAB PO BID HEART #60 (Reported) Entered as Reported by Roman Rendon on 06/16/16 1538 Lorazepam 1 MG TABLET 1 MG PO 2200 reduce anxiety at bedtime #14 TAB Prescribed by Abilio Jaeger MD on 07/01/16 Sertraline HCl 25 MG TABLET 75 MG PO 1000 anti-depressant #42 TAB Prescribed by Abilio Jaeger MD on 07/01/16 Ticagrelor (Brilinta) 90 MG TABLET 1 TAB PO BID BLOOD THINNER #180 (Reported) Entered as Reported by Roman Rendon on 06/16/16 1537 Scheduled PRN Medications Aripiprazole (Abilify) 5 MG TABLET 5 MG PO Q4P PRN irritable/irrational/labile /DFA #14 TAB Prescribed by Abilio Jaeger MD on 07/01/16 Nitroglycerin 0.4 MG TAB.SUBL 1 TAB SL AD PRN CHEST PAIN #100 (Reported) Entered as Reported by Roman Rendon on 06/16/16 1539 Trazodone HCl 50 MG TABLET 50 MG PO AT BEDTIME NEEDED PRN sleep induction/ insomnia #14 TAB Prescribed by Abilio Jaeger MD on 07/01/16 Past History Past Medical History Neurological: NONE EENT: NONE Cardiovascular: CAD (with stenting procedure), CHF, myocardial infarction, STENTS 4 Respiratory: NONE Gastrointestinal: NONE Hepatic: NONE Renal: NONE Musculoskeletal: NONE Psychiatric: anxiety, bipolar disease (would list as a "rule out"), depression Endocrine: NONE Blood Disorders: NONE Cancer(s): NONE 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 Past Surgical History Surgical History: non-contributory Psychosocial History Strengths/Capabilities: 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 Physical Limitations (Interventions): none Psychiatric Treatment History Psych Treatment Psychiatric Treatment Yes Inpatient Treatment Yes Outpatient Treatment No Location of Treatment [facility] 2016 Reason for Treatment major depression with SI Dates of Treatment Spring 2016 Response to Treatment pt has been unable to live independently since initial SI and CPS hospitalization in June 2016 Diagnosis by History: Major Depression Substance Use/Abuse History Drug Use/Abuse Substances Used/Abused No Substance Abuse Treatment Substance Abuse Treatment Past Substance Abuse TX No Inpatient Treatment No Outpatient Treatment No Comments: pt has no reported hx or etoh or substance use Current Mental Status Mental Status Orientation: Confused Affect: Flat Speech: Evasive Neuro-vegetative: Energy Increased, Helpless, Hyperactivity, Loss of Interest Appearance Appearance- Dress/Hygiene: pt in hospital scrubs; long and disheveld hair, intense eye contact but refusing to verbally engage Behaviors Thought Process: Irrational Thought Content: WNL Memory: Impaired Insight: Poor SI/HI Risk Assessment Past Suicidal Ideation/Attempts Yes Current Suicidal Ideation/Att Yes Past Homicidal Ideation/Att: No Current Homicidal Ideation/Attempts No Degree of Intent: Thoughts/No Intent Danger To: Self Gravely Disabled: Inability, Lack of Insight, Poor Impulse Control, Poor Judgment Risk Factors: history of suicide atmpts, SA/MH hospitalized, poor impulse control, lack of outcome concern, male Lethality Ratin PTSD Checklist PTSD Done? patient declined ED Management Sitter: Yes Restraints: No DSM5/PS Stressors/Medical Prob Diagnosis' (DSM 5, Stressors, Medical): Major Depressive D/O F33.2 bereavement [facility] living facility Current GAF: 25 Comments: pt has been making Suicidal statements to staff at [facility] since . Staing he wants to be with his brother. Generally isolative but past 48 hrs pt pacing, walking around facility in his underwear. Refusing medications on Friday. Repeating "im ok. Thank you". Departure Disposition Psych Medical Clearance Date: 04/14/17 Medically Cleared at: 1030 Time Started: 1030 Time Ended: 1115 Psychiatrist Consulted: Bola Thomas MD Date Disposition Established: 04/14/17 Time Disposition Established: 1245 Plan for Disposition - Modality: Inpatient Psychiatry Rationale for Disposition: Pt requires inpatient hospitalization for further stabilization and medication assessment Referrals Patient Has No Primary Care Dr (PCP/Family)
--- NOTE | 2017-04-15 11:18 | IP CRISIS DIAG ASSESS PSYCH ---
Diagnostic Assessment Basic Assessment Insurance Authorization: Insurance #1: Insurance name: [employer] Phone number: Policy number: [id number] Group number: Authorization number: [id number] pt authorized for 3 days with next review 04/17 authorization completed with Ben at [phone] Primary Care Physician: Patient's PCP: Patient Has No Primary Care Dr PCP's Phone Number: Patient's Quote: Im ok thanks Present Illness: Pt is a 66 yo male biba yesterday evening from [facility] on a [place] [employer] [facility]. Pt has a diagnosis of Major Depression and since has been making suicidal statements that he is going to kill himself so he can be with his brother who suddenly last May 2016. Following his brother's last May pt had two inpatient psychiatric admissions first at [facility] in June for SI and and at [facility] following a suicide attempt of medication o/d and attempt to slit his wrist. Pt cousin reports he spent 1 week on [facility] trauma unit then [facility] In July pt fell [place] a wall at the mall and broke legs and back and was hospitalized at [facility] for 1 month followed by rehab at [place] then step down to another rehab in [place]. Pt cousin reports he was wasting away at the rehab in [place]. He wouldn't eat or get out of bed. In the fall pt was moved to [facility] where cousin and staff report he initially responded well and appeared to get his appetite and energy back and displayed an improved mood. Since , pt has presented as more depressed and has made suicidal statements. Pt is generally isolative but past 48 hrs pt has been pacing, walking around facility in his underwear. Refusing medications on Friday. Repeating "im ok. Thank you". In ED pt refusing vitals, medications and to engage in consult. When crisis requests to meet with pt he keeps repeating "Im good or I'm okay thanks. Prior to pt admission to [facility] last Spring he had no reported prior mental health hx. 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 Pt presents as disheveled, guarded and moderately agitated. Pt mental status safety risk assessment is unable to be fully determined as he will not engage in consult and keeps repeating "I'm good or I'm okay thanks. Due to recent reports of pt SI, medication refusal and deteriorating functioning pt will need inpatient psychiatric treatment. Patient's Address: [place] [id number] Other Phone Number: Who Do You Live With? Other (see notes) (asst living facility) Feel Safe Where You Live? Yes Feel Safe in Your Relationship Yes Marital Status: single Do You Have Children? No Primary Language? Panamanian Language(s) Spoken At Home: Panamanian Family/Informants Interviewed: collateral provided by [facility] nurse Thuy [phone] and pt cousin Dg [phone] Allergies - Coded Allergies: NO KNOWN ALLERGIES (NONE 04/15/17) Current Medications - Scheduled Medications Amlodipine Besylate 10 MG TABLET 1 TAB PO DAILY HEART #30 (Reported) Entered as Reported by Roman Rendon on 06/16/16 1537 Last Taken: At an unknown date and time Aripiprazole (Abilify) 10 MG TABLET 20 MG PO 2200 mood stabilization #14 TAB Prescribed by Abilio Jaeger MD on 07/01/16 Last Taken: At an unknown date and time Aspirin (Lo-Dose Aspirin EC) 81 MG TABLET.DR 1 TAB PO DAILY HEART HEALTH #30 (Reported) Entered as Reported by Roman Rendon on 06/16/16 1539 Last Taken: At an unknown date and time Atorvastatin Calcium 40 MG TABLET 1 TAB PO DAILY CHOLESTEROL #30 (Reported) Entered as Reported by Roman Rendon on 06/16/16 1540 Last Taken: 04/14/17 2300 Carvedilol 25 MG TABLET 1 TAB PO BID HEART #60 (Reported) Entered as Reported by Roman Rendon on 06/16/16 1538 Last Taken: 04/15/17 1000 Lorazepam 1 MG TABLET 1 MG PO 2200 reduce anxiety at bedtime #14 TAB Prescribed by Abilio Jaeger MD on 07/01/16 Last Taken: At an unknown date and time Sertraline HCl 25 MG TABLET 75 MG PO 1000 anti-depressant #42 TAB Prescribed by Abilio Jaeger MD on 07/01/16 Last Taken: 04/14/17 1030 Ticagrelor (Brilinta) 90 MG TABLET 1 TAB PO BID BLOOD THINNER #180 (Reported) Entered as Reported by Roman Rendon on 06/16/16 1537 Last Taken: At an unknown date and time Scheduled PRN Medications Aripiprazole (Abilify) 5 MG TABLET 5 MG PO Q4P PRN irritable/irrational/labile /DFA #14 TAB Prescribed by Abilio Jaeger MD on 07/01/16 Last Taken: At an unknown date and time Nitroglycerin 0.4 MG TAB.SUBL 1 TAB SL AD PRN CHEST PAIN #100 (Reported) Entered as Reported by Roman Rendon on 06/16/16 1539 Last Taken: At an unknown date and time Trazodone HCl 50 MG TABLET 50 MG PO AT BEDTIME NEEDED PRN sleep induction/ insomnia #14 TAB Prescribed by Abilio Jaeger MD on 07/01/16 Last Taken: At an unknown date and time Consequences of Psych Med Use: pt has recently begun refusing his medications. Toxicology Screen Completed? Yes Results: negative Symptoms of Use: no reported substance use Past History Past Surgical History Surgical History stents placed post-M.I. 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 Physical Limitations (Interventions): none Psychiatric Treatment History Psych Treatment Psychiatric Treatment Yes Inpatient Treatment Yes Outpatient Treatment No Location of Treatment [facility] 2016 Reason for Treatment major depression with SI Dates of Treatment Spring 2016 Response to Treatment pt has been unable to live independently since initial SI and CPS hospitalization in June 2016 Diagnosis by History: Major Depression Risk Factors: history of suicide atmpts, SA/MH hospitalized, poor impulse control, lack of outcome concern, male Substance Use/Abuse History Drug Use/Abuse minimum 12mo Hx Substances Used/Abused No Substance Abuse Treatment Substance Abuse Treatment Past Substance Abuse TX No Inpatient Treatment No Outpatient Treatment No Sexual History Sexual Concerns: no Education History Highest Level of Education: master's degree Preferred Learning Style: visual, auditory, experiential Current Mental Status Mental Status Orientation: Confused Affect: Flat Speech: Evasive Neuro-vegetative: Energy Increased, Helpless, Hyperactivity, Loss of Interest Appearance Appearance- Dress/Hygiene: pt in hospital scrubs; long and disheveld hair, intense eye contact but refusing to verbally engage Behaviors Thought Process: Irrational Thought Content: WNL Memory: Impaired Insight: Poor SI/HI Risk Assessment - Minimum 6mo History- Past Suicidal Ideation/Attempts Yes Current Suicidal Ideation/Att Yes Past Homicidal Ideation/Att: No Current Homicidal Ideation/Attempts No Degree of Intent: Thoughts/No Intent Danger To: Self Gravely Disabled: Inability, Lack of Insight, Poor Impulse Control, Poor Judgment Risk Factors: history of suicide atmpts, SA/MH hospitalized, poor impulse control, lack of outcome concern, male Lethality Ratin Needs/Init TX Plan/Goals: Psychiatric Evaluation Medication Assessment individual, family and group tx Coordinated discharge planning AUDIT-C Questionnaire: AUDIT-C Questionnaire: Response Value ETOH use in the past year Never 0 # drinks typical/day Doesn't Drink 0 6 or > drinks per occasion Never 0 Total 0 DSM5/PS Stressors/Medical Prob Diagnosis' (DSM 5, Stressors, Medical): Major Depressive D/O F33.[address] [facility] living facility Current GAF: 25 Comments: pt has been making Suicidal statements to staff [facility] since . Staing he wants to be with his brother. Generally isolative but past 48 hrs pt pacing, walking around facility in his underwear. Refusing medications on Friday. Repeating "im ok. Thank you".
[2017-04-15 12:52] VITALS: BP 136/83
--- NOTE | 2017-04-15 14:17 | Event Note ---
Event Note Event Note: Attempted to see the patient. Pt refused to be seen or examined, Told RN to please callus back when patient reday to give History.
--- NOTE | 2017-04-15 14:23 | CPS PROVIDER INIT ASMT PSYCH ---
Psychiatric Admission Alteration Workroom Supervisor's Note Reviewed: Yes Patient Seen and Examined: Yes Identifying Information: 66-year-old white male admitted through the emergency room after being brought from an assisted living facility on a police emergency examination request. Chief Complaint: The patient did not have a chief complaint and keeps repeating "I am okay, thanks" According to the crisis diagnostic assessment the patient reportedly has a diagnosis of major depressive disorder and reportedly was making suicidal statements since . The patient reported reportedly stated that he was going to kill himself so that he can be with his brother who suddenly in May 2016 the patient had had 2 inpatient psychiatric admissions one of them was at [facility] and the other one was at [facility] following a suicide attempt Reaction to Hospitalization: The patient was indifferent to his admission History of Present Illness Onset of Illness: The patient's according to the evaluation and by the crisis team has been having thoughts of suicide since with an increase in his depressive symptoms. Circumstances Leading to Admission: The patient was put brought in on a police emergency examination request from an assisted living facility. Collateral information from the patient's cousin indicated that he was "wasting away at the rehabilitation in [place], he wouldn' t eat or get out of bed." Problem(s) Justifying Need for Admission: Suicidal thoughts Past Psychiatric History Past Diagnosis(es)- if any: Major depressive disorder severe Past Precipitating Factors- if any: Possibly nonadherence to medications - Include inpatient and outpatient treatment Treatment History: The patient has been previously inpatient at [facility] as well as [facility] History of Suicide Attempts or Gestures The patient refuses to be interviewed today but the previous record indicated that there are no previous suicide attempts Substance Abuse History: Again the patient did not answer any questions this time but the previous record indicated that he did not have issues with alcohol or substance abuse Allergies: Coded Allergies: NO KNOWN ALLERGIES (NONE 04/15/17) Home Med List: Amlodipine Abilify aspirin atorvastatin carvedilol Lorazepam sertraline - Include any medical condition(s) that may - impact the patient's recovery/remission Past History Medical History Neurological: NONE EENT: NONE Cardiovascular: CAD (with stenting procedure), CHF, myocardial infarction, STENTS 4 Respiratory: NONE Gastrointestinal: NONE Hepatic: NONE Renal: NONE Musculoskeletal: NONE Psychiatric: anxiety, bipolar disease (would list as a "rule out"), depression Endocrine: NONE Blood Disorders: NONE Cancer(s): NONE 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 Psychiatric Family/Social Hx Family History Psychiatric Illness: Patient refused to be interviewed today, repeating I am okay thank you Substance Use: Refused to answer questions repeating "I'm okay thank you Suicides: Unknown/refused to answer Other Family History: Unknown/refused to answer Social History Living Situation: Unknown/refused to answer Significant Relationships (family/friends): Unknown/refused to answer Education: Reportedly have a Masters of social work this information was obtained from his previous admission Vocation/Occupation: The patient refuses to answer, the previous record indicated that 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 - #1 Recognizing dangerous situations. - #2 Coping Skills. - #3 Basic information about quitting. Status of Tobacco Cessation Counseling: Not Applicable Cessation Med Status Not Applicable Alcohol Screening - ETOH screen POS if BAL >=80 or Audit-C>= M4/F3 Audit-C Score from Diag Assess: 0 Blood Alcohol Level: Laboratory Tests 04/13 1715 Toxicology Serum Alcohol (<10 MG/DL) < 10.0 Alcohol Use Screening Results: Neg per Audit C &/or BAL - If ETOH counseling indicated - the following topics are required. - #1 Express concern about the patient's - drinking at unhealthy levels, include informing - of national norms for moderate drinking: - men <= 14 drinks/week, max 4 drinks/occasion - women <= 7 drinks/week, max 3 drinks/occasion - #2 Providing feedback, including linking alcohol to - negative physical effects (liver injury, hypertension) - negative emotional effects (relationship problems and - depression) - negative occupational consequences (reduced work - performance) - #3 Advising the patient to abstain from alcohol or - to drink below national norms for moderate drinking - (as listed above). Status of ETOH Use Counseling: N/A B/C NO ETOH Use Metabolic Screening - Screen if on a Neuroleptic Medication - Metabolic screening should include: - Blood Pressure, BMI, Glucose or Hgb A1c, & a - Lipid profile from within the past 365 days. Metabolic Screening ([X]) Not Applicable, patient not on a neuroleptic. OR () Patient on a neuroleptic(s) . Enter below results for Hemoglobin A1C, and lipid panel if obtained during the last 365 days. BMI: 23.500 Blood Pressure: 136/[address] [facility] (If applicable): Exam and Plan Mental Status Examination Ambulation Status: Steady gait Appearance: Slightly disheveled Attitude towards examiner: Calm but uncooperative Psychomotor activity: Reduced psychomotor activity Behavior: No bizarre behaviors Quality of speech: Unknown/repeating "I am fine, thank you" Patient refused interview Affect: Flat Mood: Unknown Suicidal Ideation: Unknown Homicidal Ideation: Unknown Hallucinations: Unknown Paranoid/Delusional Material: Unknown Difficulties with thought organization: Unknown Insight: Seems impaired Judgment: Seems poor Orientation: Unknown Cognition: Unknown Memory Function: Unknown Estimate of intellectual functioning: Average from history Assets/Strengths Patient Identified Assets/Strengths: educated, hard-working Impression/Plan Impression and Plan: 66-year-old white male who was brought in from an assisted living facility reportedly for making suicidal statements that he was going to kill himself so that So that he can be with his brother (brother is he suddenly May 2016) - Include all active medical diagnosis that require tx DSM 5 Diagnosis(es): Major depressive disorder Rule out schizoaffective disorder CAD with history Angina & stenting - Initial Tx Plan for Active Psych & Medical Conditions Treatment Plan: Inpatient psychiatric care, 15 minute checks, nursing assessments, medication by nurses, vital signs, resume home medications, group therapy, milieu therapy, social work to evaluate and coordinate aftercare plans, psychiatrist to evaluate patient daily, - Factors that would help patient function - in a less restrictive setting. Factors: Adherence to medication
[2017-04-15 16:00] VITALS: BP 134/86
[2017-04-16 08:55] VITALS: BP 101/65
--- NOTE | 2017-04-16 11:03 | CP SOUTH PROGRESS NOTE PSYCH ---
Psych (Inpt) Progress Note Progress Note Von is a 66-year-old single White male admitted through the emergency room after being brought from an assisted living facility on a police emergency examination request. The patient did not have a chief complaint and keeps repeating "I am okay, thanks. According to Crisis PUMP INSTALLATION AND SERVICER's notes, patient reportedly has a diagnosis of major depressive disorder and reportedly was making suicidal statements since . The patient --reportedly- stated that he was going to kill self so that he can be with his brother who suddenly in May 2016 the patient had had 2 inpatient psychiatric admissions one of them was at and the other one was at [facility] following a suicide attempt. Collateral information from the patient's cousin indicated that he was "wasting away at the rehabilitation in [place], he wouldn' t eat or get out of bed." Mental Status Examination: The patient is on 1:1 because of disorganization in behavior. He was in bed and had breakfast in his room today. He is somewhat disheveled, and in need of a haircut. He continued to repeat today what he was repeating yesterday: I am fine, thank you. He was calm despite being uncooperative, reduced psychomotor activity. Some bizarre behaviors in the past 24 hours noted by unit staff ( opening several milk container, having a sip from each then throwing in garbage) . Mood unknown/repeating "I am fine, thank you" Affect was flat Unknown whether he has suicidal Ideation, homicidal Ideation, hallucinations, or paranoia Thought process and content unknown because he would not agree to a full interview, just repeating "I am fine, thank you" as an answer to every question ? difficulties with thought organization: Poor insight and judgment, Orientation, cognition/Memory are unknown average intellectual functioning Risk Assessment Update: RISK FACTORS FOR SUICIDE AND VIOLENCE/HOMICIDE: 1) recent thoughts of suicide; 2 ) severe depression, 3) single, white, male, over 55. PROTECTIVE AND RISK-MITIGATING FACTORS FOR SUICIDE AND VIOLENCE/HOMICIDE: 1) no family history of suicides, 2) does not have terminal illness 3) does not have chronic severe pain, 4) no alcohol or substance use disorder Diagnoses: Major depressive disorder, severe with psychosis Rule out schizoaffective disorder CAD with history Angina & stenting Treatment Plan: Inpatient psychiatric care: constant observation until deemed unnecessary by nursing, assessments, medication and vitals by nursing and nurses aides, group therapy, milieu therapy, social work to evaluate and coordinate aftercare plans, and psychiatrist to evaluate patient daily Start [place] 150 mg twice daily Increase Sertraline to 100 mg daily
--- NOTE | 2017-04-16 13:53 | SOCIAL WORKER PROG NOTE PSYCH ---
Social Work Progress Note Progress Note Crisis attempted to meet with pt this afternoon to complete psychosocial. Pt presented as lethargic and unable to engage with interview at this time. Crisis will attemt again tomorrow to meet and complete.
--- NOTE | 2017-04-16 17:07 | SOCIAL WORKER PROG NOTE PSYCH ---
Social Work Progress Note Progress Note This staff writer attempted to meet with the patient. He refused to meet. He denied any safety concerns.
[2017-04-16 19:44] VITALS: BP 150/91
--- NOTE | 2017-04-17 11:02 | CP SOUTH PROGRESS NOTE PSYCH ---
Psych (Inpt) Progress Note Progress Note RN, Group therapists, BRUSH OPERATOR, and psychiatrist discussed the patients progress, and reviewed the patients care plan in the team meeting. Mental Status Examination: The patient is slightly more communicative this morning. He remains on 1:1 because of disorganization in behavior. He was in bed but was easily arousable. disheveled, unkempt long kothari hair. He continued to repeat thank you but answered a few questions, denied thinking of suicide, denied hallucinations reduced psychomotor activity. Mood unknown/repeating "I am fine, thank you" Affect was flat Denied violent thoughts or homicidal Ideation, he acknowledged he lost weight over past several months, does not know how much Thought process and content unknown because of very limited conversation (yes/no answers and thank you repeatedly ? difficulties with thought organization, poor insight and judgment, unknown orientation, cognition, or memory deficits Summary & Risk Assessment Update: Von is a 66-year-old single White male who was admitted via [facility] ED from an assisted living facility on a PEER. The patient reportedly has a diagnosis of major depressive disorder and reportedly was making suicidal statements since . The patient --reportedly- stated that he was going to kill self so that he can be with his brother who suddenly in May 2016 the patient had had 2 inpatient psychiatric admissions one of them was at [facility] and the other one was at [facility] following a suicide attempt. Collateral information from the patient's cousin indicated that he was "wasting away at the rehabilitation in [place]." RISK FACTORS FOR SUICIDE AND VIOLENCE/HOMICIDE: 1) Recent thoughts of suicide; 2 ) Severe depression, 3) Single White Male over 55. PROTECTIVE AND RISK-MITIGATING FACTORS FOR SUICIDE AND VIOLENCE/HOMICIDE: 1) No family history of suicides, 2) Does not have a terminal illness 3) Does not have chronic severe pain, 4) No alcohol or substance use disorder, 5) Denied command hallucinations Diagnoses: Major depressive disorder, severe with psychosis Rule out schizoaffective disorder CAD with history Angina & stenting Treatment Plan Update: Inpatient psychiatric care: constant observation until deemed unnecessary by nursing, assessments, medication and vitals by nursing and nurses aides, group therapy, milieu therapy, social work to evaluate and coordinate aftercare plans, and psychiatrist to evaluate patient daily Increase [place] to 300 mg twice daily Continue Sertraline 100 mg daily Continue Abilify 10 mg daily
[2017-04-17 11:34] VITALS: BP 123/70
--- NOTE | 2017-04-17 14:29 | SOCIAL WORKER PROG NOTE PSYCH ---
Social Work Progress Note Progress Note 10:40am This designer/writer attempted to meet with the patient. He was in bed, refusing to get up. He stated, "I'm going to hell." Patient would not expand further. At this time, he denied SI/HI or hx of SI/HI/violent thoughts or behaviors. He was not willing to engage in further discussion or answer questions. He agreed to try to meet again later this afternoon. 2:20pm This designer/writer attempted to meet with patient. He was walking towards the kitchen. Upon arriving in the kitchen, the patient stated, "I'm not going to meet with you."
--- NOTE | 2017-04-17 14:31 | SOCIAL WORKER PROG NOTE PSYCH ---
Social Work Progress Note Progress Note 1:03pm This staff writer spoke with Cinthya ([phone]) and provided clinical for a concurrent review. The patient will be covered through 04/20/17 with a review due on 04/21/17.
--- NOTE | 2017-04-17 14:47 | History & Physical ---
General Information and HPI MD Statement: I have seen and personally examined ITZEL GERARD and documented this H&P. The patient is a 66 year old M who presented with a patient stated chief complaint of depression Source of Information: patient Exam Limitations: Patient not willing to provide history History of Present Illness: Please note that patient not willing to provide any history. He kept on saying I find thank you, I'm fine thank you. This is per note from the social work therapist Charles Rader and Dr. Thomas's note. Patient has history of major depression. Since he has made multiple suicide ideations. Apparently patient is from an assisted living and was acting not right. Patient is admitted to Inpatient Psychiatry for major depression as well as suicidal ideation. Patient himself did not offer any complaints therefore unfortunately the history is very limited. Allergies/Medications Allergies: Coded Allergies: NO KNOWN ALLERGIES (NONE 04/15/17) Home Med list Amlodipine Besylate 10 MG TABLET 1 TAB PO DAILY HEART (Reported) Aripiprazole (Abilify) 5 MG TABLET 5 MG PO Q4P PRN irritable/irrational/labile /DFA Aripiprazole (Abilify) 10 MG TABLET 20 MG PO 2200 mood stabilization Aspirin (Lo-Dose Aspirin EC) 81 MG TABLET.DR 1 TAB PO DAILY HEART HEALTH ( Reported) Atorvastatin Calcium 40 MG TABLET 1 TAB PO DAILY CHOLESTEROL (Reported) Carvedilol 25 MG TABLET 1 TAB PO BID HEART (Reported) Lorazepam 1 MG TABLET 1 MG PO 2200 reduce anxiety at bedtime Nitroglycerin 0.4 MG TAB.SUBL 1 TAB SL AD PRN CHEST PAIN (Reported) 1st sign of attack; may repeat every 5 minutes until relief; if pain persists after 3 tablets in 15 minutes, prompt medical att Sertraline HCl 25 MG TABLET 75 MG PO 1000 anti-depressant Ticagrelor (Brilinta) 90 MG TABLET 1 TAB PO BID BLOOD THINNER (Reported) Trazodone HCl 50 MG TABLET 50 MG PO AT BEDTIME NEEDED PRN sleep induction/ insomnia Past History Travel History Traveled to [place] past 21 day No Medical History Neurological: NONE EENT: NONE Cardiovascular: CAD (with stenting procedure), CHF, myocardial infarction, STENTS 4 Respiratory: NONE Gastrointestinal: NONE Hepatic: NONE Renal: NONE Musculoskeletal: NONE Psychiatric: anxiety, bipolar disease (would list as a "rule out"), depression Endocrine: NONE Blood Disorders: NONE Cancer(s): NONE 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 Home Review of Systems Review of Systems Constitutional: Reports: see HPI. EENTM: Reports: see HPI. Cardiovascular: Reports: see HPI. Respiratory: Reports: see HPI. GI: Reports: see HPI. Musculoskeletal: Reports: see HPI. Skin: Reports: see HPI. Neurological/Psychological: Reports: see HPI. Exam & Diagnostic Data Last 24 Hrs of Vital Signs/I&O Vital Signs Date Time Temp Pulse Resp B/P B/P Pulse O2 O2 Flow FiO2 Mean Ox Delivery Rate 04/17 1144 74 123/70 04/17 1134 74 123/70 04/16 1945 103 150/91 04/16 1945 103 150/91 04/16 1943 98.8 103 150/91 Physical Exam General Appearance Alert, No Acute Distress Skin Some scratch cronin from itching. HEENT Atraumatic Cardiovascular Regular Rate, Normal S1, Normal S2 Lungs Clear to Auscultation Abdomen Normal Bowel Sounds, Soft, No Tenderness Neurological Cranial Nerves II through XII: intact Extremities No Edema Last 24 Hrs of Labs/Jens: Labs from Apr 13 reviewed. Patient was mildly hypokalemic. Assessment/Plan Assessment: 66-year-old male with documented history significant for major depression, bipolar disorder, coronary artery disease who is admitted to Inpatient Psychiatry admission depression and suicidal ideation. Unfortunately patient could not provide any history or any information about his medications. I see that patient has been started on his cardiac medications. I also noted mild hypokalemia on his initial labs. I will repeat labs today. The rest of his management for his psychiatric issues will be up to psychiatry. As Ranked By This Provider Problem List: 1. Major depression 2. CAD (coronary artery disease) 3. Bipolar 1 disorder Miscellaneous Miscellaneous Documentation Attending Case Discussed With: Sheila Hussein MD Primary Care Physician: Patient Has No Primary Care Dr Patient sees these Specialists psychiatrist Level of Patient Care: [facility]
[2017-04-17 16:03] VITALS: BP 113/63
--- NOTE | 2017-04-17 16:08 | SOCIAL WORKER SOCIAL HX PSYCH ---
Social History Basic Assessment Insurance Authorization: Insurance #1: Insurance name: SHALINI Phone number: Policy number: [id number] Group number: [id number] Authorization number: Curr Source of Income/Entitlements: unemployment compensation Primary Care Physician: Patient's PCP: Patient Has No Primary Care Dr PCP's Phone Number: Present Problem: Pt is a 66 yo male biba yesterday evening from [facility] on a [place] [employer] PEER. Pt has a diagnosis of Major Depression and since has been making suicidal statements that he is going to kill himself so he can be with his brother who suddenly last May 2016. Following his brother's last May pt had two inpatient psychiatric admissions first at [facility] in June for SI and and at [facility] following a suicide attempt of medication o/d and attempt to slit his wrist. Pt cousin reports he spent 1 week on [facility] trauma unit then 2 weeks on their [facility] flooor. In July pt fell off a wall at the mall and broke legs and back and was hospitalized at [facility] for 1 month followed by rehab at [place] then step down to another rehab in [place]. Pt cousin reports he was wasting away at the rehab in [place]. He wouldn't eat or get out of bed. In the fall pt was moved to [facility] where cousin and staff report he initially responded well and appeared to get his appetite and energy back and displayed an improved mood. Since , pt has presented as more depressed and has made suicidal statements. Pt is generally isolative but past 48 hrs pt has been pacing, walking around facility in his underwear. Refusing medications on Friday. Repeating "im ok. Thank you". In ED pt refusing vitals, medications and to engage in consult. When crisis requests to meet with pt he keeps repeating "Im good or I'm okay thanks. Prior to pt admission to [facility] last Spring he had no reported prior mental health hx. 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 Pt presents as disheveled, guarded and moderately agitated. Pt mental status safety risk assessment is unable to be fully determined as he will not engage in consult and keeps repeating "I'm good or I'm okay thanks. Due to recent reports of pt SI, medication refusal and deteriorating functioning pt will need inpatient psychiatric treatment. Primary Language? Spanish Language(s) Spoken At Home: Spanish Living Situation Residential Care/Treatment Fac residential Feel Safe Where You Are Living Yes Feel Safe in Relationships? Yes Allergies - Coded Allergies: NO KNOWN ALLERGIES (NONE 04/15/17) Current Medications - Scheduled Medications Amlodipine Besylate 10 MG TABLET 1 TAB PO DAILY HEART #30 (Reported) Entered as Reported by Roman Rendon on 06/16/16 153 Last Taken: At an unknown date and time Aripiprazole (Abilify) 10 MG TABLET 20 MG PO 2200 mood stabilization #14 TAB Prescribed by Abilio Jaeger MD on 07/01/16 Last Taken: At an unknown date and time Aspirin (Lo-Dose Aspirin EC) 81 MG TABLET.DR 1 TAB PO DAILY HEART HEALTH #30 (Reported) Entered as Reported by Roman Rendon on 06/16/16 1539 Last Taken: At an unknown date and time Atorvastatin Calcium 40 MG TABLET 1 TAB PO DAILY CHOLESTEROL #30 (Reported) Entered as Reported by Roman Rendon on 06/16/16 1540 Last Taken: 04/14/17 2300 Carvedilol 25 MG TABLET 1 TAB PO BID HEART #60 (Reported) Entered as Reported by Roman Rendon on 06/16/16 1538 Last Taken: 04/15/17 1000 Lorazepam 1 MG TABLET 1 MG PO 2200 reduce anxiety at bedtime #14 TAB Prescribed by Abilio Jaeger MD on 07/01/16 Last Taken: At an unknown date and time Sertraline HCl 25 MG TABLET 75 MG PO 1000 anti-depressant #42 TAB Prescribed by Abilio Jaeegr MD on 07/01/16 Last Taken: 04/14/17 1030 Ticagrelor (Brilinta) 90 MG TABLET 1 TAB PO BID BLOOD THINNER #180 (Reported) Entered as Reported by Roman Rendon on 06/16/16 1537 Last Taken: At an unknown date and time Scheduled PRN Medications Aripiprazole (Abilify) 5 MG TABLET 5 MG PO Q4P PRN irritable/irrational/labile /DFA #14 TAB Prescribed by Abilio Jaeger MD on 07/01/16 Last Taken: At an unknown date and time Nitroglycerin 0.4 MG TAB.SUBL 1 TAB SL AD PRN CHEST PAIN #100 (Reported) Entered as Reported by Roman Rendon on 06/16/16 1539 Last Taken: At an unknown date and time Trazodone HCl 50 MG TABLET 50 MG PO AT BEDTIME NEEDED PRN sleep induction/ insomnia #14 TAB Prescribed by Abilio Jaeger MD on 07/01/16 Last Taken: At an unknown date and time Consequences of Psych Med Use: pt has recently been refusing to take medication Past History Past Medical History Neurological: NONE EENT: NONE Cardiovascular: CAD (with stenting procedure), CHF, myocardial infarction, STENTS 4 Respiratory: NONE Gastrointestinal: NONE Hepatic: NONE Renal: NONE Musculoskeletal: NONE Psychiatric: anxiety, bipolar disease (would list as a "rule out"), depression Endocrine: NONE Blood Disorders: NONE Cancer(s): NONE 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 Father was not involved in his life. DCF Involvement? No Relationship w/Mother: Mom is . Was very close Relationship w/Father: Did not know his father Any Sibling(s)? Yes Sibling's Gender(s)/Age(s): male Sibling 1: Relationship w/Sibling(s): Brother . Pt and his brother were very close Relationship w/Friends: pt reports his cousin is supportive Abuse/Trauma History Trauma History/Current Trauma: Denies Legal History Hx of Juvenile Legal Charges? No Hx of Adult Legal Charges? 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 No ADL Limitations: none reported [place]/Social/Peer Relations cousin is his support Meaningful Activities: gardening Childhood Restorationism: Amish Current Zoroastrian Affiliation: Amish Is Spirituality Important to You? yes Patient's Ethnicity: Puerto Rican Are There Developmental Issues? No Milestones Achieved: fine motor, gross motor Psychiatric Treatment History Psych Treatment Inpatient Treatment Yes Outpatient Treatment No Location of Treatment [facility]; [facility] 2016 Reason for Treatment major depression with SI Dates of Treatment Spring 2016 Response to Treatment pt has been unable to live independently since initial SI and CPS hospitalization in June 2016 Treatment of Prior Episodes: no Diagnosis: Major Depression Psychodynamic Issues: loss of brother Risk Factors: history of suicide atmpts, SA/MH hospitalized, poor impulse control, lack of outcome concern, male Substance Use/Abuse History Drug Use/Abuse Substance Used/Abused No History Symptoms of Use: no reported substance use Substance Abuse Treatment Substance Abuse Treatment Inpatient Treatment No Outpatient Treatment No Sexual History Sexual Concerns: no Education History Highest Level of Education: master's degree Number of College Years: 6 College Degree/Major: Social Work Preferred Learning Style: visual, auditory, experiential HX of Learning Difficulties: None reported Barriers to Learning: None reported Special Communication Needs: None reported Employment History No. of Jobs in Last 5 Years: 1 Attendance: Normal Performance: Good History Have You Been in The ? No Current Mental Status Mental Status Orientation: Confused Affect: Flat Speech: Evasive Neuro-vegetative: Energy Increased, Helpless, Hyperactivity, Loss of Interest Appearance Appearance- Dress/Hygiene: pt in hospital scrubs; long and disheveld hair, intense eye contact but refusing to verbally engage Behaviors Thought Process: Irrational Thought Content: WNL Memory: Impaired Insight: Poor SI/HI Risk Assessment Past Suicidal Ideation/Attempts Yes Current Suicidal Ideation/Att Yes Past Homicidal Ideation/Att: No Current Homicidal Ideation/Attempts No Degree of Intent: Thoughts/No Intent Danger To: Self Gravely Disabled: Inability, Lack of Insight, Poor Impulse Control, Poor Judgment Lethality Ratin - Conclusion and Recommendations for treatment - and discharge planning Summary: Due to pt's inability or unwillingness to provide current history this social has been completed based on review of prior social, current collateral and current assessment information.
[2017-04-17 19:53] VITALS: BP 142/57
[2017-04-18 08:05] VITALS: BP 120/70
--- NOTE | 2017-04-18 11:50 | CP SOUTH PROGRESS NOTE PSYCH ---
Psych (Inpt) Progress Note Progress Note RN, Group Therapists, COMPLEX CASE MANAGER, and Psychiatrist discussed Keiko progress, and reviewed his care plan in the team meeting. Mental Status Examination: Von remains in a catatonic state, he was arousable but uncommunicative, he was in bed, malodorous/unkempt, sleeps too much (or lies in bed too much), repeats thank you and unable and/or unwilling to engage in conversation. As reported by nursing staff and nurses aides the patient denied thinking of suicide, reduced psychomotor activity, flat affect THE FOLLOWING AREAS ARE UNKNOWN: thought process, delusions, hallucinations, mood, orientation, cognition, memory, violent thoughts/homicidal ideation Summary & Risk Assessment Update: Von is a 66-year-old single White male who reportedly has a diagnosis of major depressive disorder for-reportedly- making suicidal statements since ( patient --reportedly- stated that he was going to kill self so that he can be with his brother who suddenly in May 2016). Patient had 2 inpatient psychiatric admissions one of them was at [facility] and the other one was at [facility] following a suicide attempt. RISK FACTORS FOR SUICIDE AND VIOLENCE/HOMICIDE: 1) Recent thoughts of suicide; 2) Severe depression, 3) Single White Male over 55. PROTECTIVE AND RISK-MITIGATING FACTORS FOR SUICIDE AND VIOLENCE/HOMICIDE: 1) No family history of suicides, 2) Does not have a terminal illness 3) Does not have chronic severe pain, 4) No alcohol or substance use disorder, 5) Denied command hallucinations Diagnoses: Major depressive disorder, severe with psychosis/ Catatonia Rule out schizoaffective disorder CAD with history Angina & stenting Treatment Plan Update: Inpatient psychiatric care: constant observation until deemed unnecessary by nursing, assessments, medication and vitals by nursing and nurses aides, group therapy, milieu therapy, social work to evaluate and coordinate aftercare plans, and psychiatrist to evaluate patient daily Increase [place] to 300 mg twice daily Continue Sertraline 100 mg daily Reduce Abilify to 5 mg daily Start Zyprexa 5 mg at bedtime Start Ativan 1.5 mg at bedtime for catatonia
[2017-04-18 12:32] VITALS: BP 135/85
[2017-04-18 16:29] VITALS: BP 140/54
--- NOTE | 2017-04-18 16:56 | SOCIAL WORKER PROG NOTE PSYCH ---
Social Work Progress Note Progress Note 10:50am This loan underwriter met briefly with patient. He reported cirilo improvement with mood. 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 Patient was not willing to engage in further conversation. This loan underwriter spoke with nursing who stated that they will attempt to assist the patient with showering today.
[2017-04-18 19:55] VITALS: BP 124/68
[2017-04-19 08:03] VITALS: BP 112/48
--- NOTE | 2017-04-19 11:18 | CP SOUTH PROGRESS NOTE PSYCH ---
Psych (Inpt) Progress Note Progress Note Include the following elements, when applicable: Involvement in the active treatment of the patient with behavioral observations of the patient and the patient's response to the treatment. Review of the ongoing treatment process in the context of the treatment plan. Indication of how multi-disciplinary staff members are carrying out the treatment plan. Plans for future interventions and recommendations for revision of the treatment plan. Liaison with other physicians/providers. Progress Note: Pt notes that he is "alright." He feels that he slept well. Denies SI or HI. No visitors. No questions or concerns about meds. Current Medications Sig/Moises Start time Last Medication Dose Route Stop Time Status Admin Acetaminophen 650 MG Q4P PRN 04/15 1415 AC PO Al Hydroxide/Mg 30 ML Q4-6 PRN PRN 04/15 1415 AC Hydroxide PO Aripiprazole 5 MG DAILY 04/19 1000 AC 04/19 PO 0917 Aripiprazole 10 MG DAILY 04/16 1000 DC 04/18 PO 0938 Atorvastatin Calcium 40 MG 04/13 AC 04/18 PO 2154 Benztropine Mesylate 1 MG Q6P PRN 04/15 1715 AC IM [place] Chloride 25 MG TID 04/13 2199 AC 04/19 PO 0917 Carvedilol 12.5 MG BID 04/16 220 AC 04/19 PO 0916 Haloperidol 5 MG Q6P PRN 04/15 1715 AC IM Haloperidol 3 MG Q4P PRN 04/15 1415 AC 04/16 PO 0856 [place] Carbon[place] 300 MG BID 04/17 2199 AC 04/19 PO 0916 Lorazepam 1.5 MG AT BEDTIME 04/18 2199 AC 04/18 PO 2156 Lorazepam 0.5 MG Q4 PRN 04/16 1245 AC PO 04/23 1244 Lorazepam 2 MG Q6P PRN 04/15 1715 AC IM Lorazepam 1.5 MG AT BEDTIME NEED.. 04/15 1415 AC PO Magnesium Hydroxide 30 ML AT BEDTIME NEED.. 04/15 1415 AC PO Olanzapine 5 MG AT BEDTIME 04/18 2199 AC 04/18 PO 2154 Sertraline HCl 100 MG DAILY 04/17 1000 AC 04/19 PO 0917 Tamsulosin HCl 0.8 MG 04/13 AC 04/18 PO 2154 Laboratory Tests 04/17 1504 Chemistry Sodium (137 - 145 mmol/L) 142 Potassium (3.5 - 5.1 mmol/L) 4.1 Chloride (98 - 107 mmol/L) 101 Carbon Dioxide (22 - 30 mmol/L) 26 Anion Gap (5 - 16) 16 BUN (9 - 20 mg/dL) 14 Creatinine (0.7 - 1.2 mg/dL) 0.7 Estimated GFR (>60 ml/min) > 60 BUN/Creatinine Ratio (7 - 25 %) 20.0 Vital Signs Date Time Temp Pulse Resp B/P B/P Pulse O2 O2 Flow FiO2 Mean Ox Delivery Rate 04/19 0916 66 112/48 04/19 0803 97.7 66 04/18 2154 99.2 83 16 04/18 99.2 83 16 04/18 1955 99.2 83 04/18 1629 72 140/54 04/18 1232 76 135/85 MSE General appearance: good hygiene and grooming; Attitude: cooperative; Eye contact: appropriate; Movement: no psychomotor agitation or slowing; Speech: nl fluency, nl rate/rhythm, nl volume, nl prosody; Mood: "alright" Affect: irritable, flat, appropriate, constricted, non-labile, congruent; Thought process: linear and goal-directed; Thought content: denied SI or HI, no paranoid ideation; Perception: denied hallucinations- auditory, visual, does not appear to be responding to internal stimuli; I/J: limited A/P: Pt with bipolar depression and FTT with improved mood and appetite. Pt age breakfast x2 this AM. -Continue current medication regimen -Encourage integration into the milieu
[2017-04-19 12:08] VITALS: BP 118/74
[2017-04-19 16:29] VITALS: BP 105/54
[2017-04-19 19:16] VITALS: BP 120/62
[2017-04-20 08:09] VITALS: BP 138/73
[2017-04-20 12:15] VITALS: BP 121/75
--- NOTE | 2017-04-20 12:18 | CP SOUTH PROGRESS NOTE PSYCH ---
Psych (Inpt) Progress Note Progress Note Include the following elements, when applicable: Involvement in the active treatment of the patient with behavioral observations of the patient and the patient's response to the treatment. Review of the ongoing treatment process in the context of the treatment plan. Indication of how multi-disciplinary staff members are carrying out the treatment plan. Plans for future interventions and recommendations for revision of the treatment plan. Liaison with other physicians/providers. Progress Note: Pt notes that he did eat this morning. Slept "alright" and did not want to make changes to meds as sleep later described at "not bad." He denies SI or HI. Current Medications Sig/Moises Start time Last Medication Dose Route Stop Time Status Admin Acetaminophen 650 MG .STK-MED ONE 04/19 1216 DC PO 04/19 121 Acetaminophen 650 MG Q4P PRN 04/15 1415 AC 04/19 PO 1220 Al Hydroxide/Mg 30 ML Q4-6 PRN PRN 04/15 1415 AC Hydroxide PO Aripiprazole 5 MG DAILY 04/19 999 AC 04/20 PO 0843 Atorvastatin Calcium 40 MG 04/13 AC 04/19 PO 2226 Benztropine Mesylate 1 MG Q6P PRN 04/15 1715 AC IM [place] Chloride 25 MG TID 04/13 2199 AC 04/20 PO 0843 Carvedilol 12.5 MG BID 04/16 2199 AC 04/20 PO 0843 Haloperidol 5 MG Q6P PRN 04/15 1715 AC IM Haloperidol 3 MG Q4P PRN 04/15 1415 AC 04/16 PO 0856 [place] Carbonate 300 MG BID 04/17 2199 AC 04/20 PO 0843 Lorazepam 1.5 MG AT BEDTIME 04/18 2199 AC 04/19 PO 2225 Lorazepam 0.5 MG Q4 PRN 04/16 1245 AC PO 04/23 1244 Lorazepam 2 MG Q6P PRN 04/15 1715 AC IM Lorazepam 1.5 MG AT BEDTIME NEED.. 04/15 1415 AC PO Magnesium Hydroxide 30 ML AT BEDTIME NEED.. 04/15 1415 AC PO Olanzapine 5 MG AT BEDTIME 04/18 2199 AC 04/19 PO 2226 Sertraline HCl 100 MG DAILY 04/17 999 AC 04/20 PO 0843 Tamsulosin HCl 0.8 MG 04/13 AC 04/19 PO 2226 Laboratory Tests 04/17 1504 Chemistry Sodium (137 - 145 mmol/L) 142 Potassium (3.5 - 5.1 mmol/L) 4.1 Chloride (98 - 107 mmol/L) 101 Carbon Dioxide (22 - 30 mmol/L) 26 Anion Gap (5 - 16) 16 BUN (9 - 20 mg/dL) 14 Creatinine (0.7 - 1.2 mg/dL) 0.7 Estimated GFR (>60 ml/min) > 60 BUN/Creatinine Ratio (7 - 25 %) 20.0 Vital Signs Date Time Temp Pulse Resp B/P B/P Pulse O2 O2 Flow FiO2 Mean Ox Delivery Rate 04/20 1215 67 121/75 04/20 0843 68 138/73 04/20 0809 97.0 68 138/73 04/19 2226 80 128/68 04/19 2226 80 128/68 04/19 1916 97.9 75 120/62 04/19 1629 77 105/54 MSE General appearance: good hygiene and grooming; Attitude: cooperative; Eye contact: appropriate; Movement: no psychomotor agitation or slowing; Speech: nl fluency, nl rate/rhythm, nl volume, nl prosody; Mood: "alright" Affect: irritable, flat, appropriate, constricted, non-labile, congruent; Thought process: linear and goal-directed; Thought content: denied SI or HI, no paranoid ideation; Perception: denied hallucinations- auditory, visual, does not appear to be responding to internal stimuli; I/J: limited A/P: Pt with bipolar depression and FTT with improved mood and appetite overall. -Continue current medication regimen -Encourage integration into the milieu
[2017-04-20 15:39] VITALS: BP 140/81
[2017-04-20 19:10] VITALS: BP 120/73
[2017-04-21 08:46] VITALS: BP 130/91
[2017-04-21 12:34] VITALS: BP 126/72
--- NOTE | 2017-04-21 12:55 | CP SOUTH PROGRESS NOTE PSYCH ---
Psych (Inpt) Progress Note Progress Note RN, Group Therapist, RESIDENCE LEASING AGENT, and Psychiatrist discussed Keiko progress and care plan. BP 130/91, Pulse: 75/min., Temp. 96.3 Mental Status Examination: Von is a little bit more visible, still spending too much time in bed, less catatonic, arousable, more communicative, malodorous/unkempt (does not want a haircut but said he would take a shower today), he has limited conversation ( relative improvement compared to last week) denied thinking of suicide, reduced psychomotor activity, flat affect thought process remains difficult to audio visual facilities engineer, no report of delusions, denied hallucinations over the weekend, mood depressed, oriented to place and person seems to have reasonable attention, information processing and short-term memory no violent thoughts/homicidal ideation Summary & Risk Assessment Update: Von is a 66-year-old single White male who reportedly has a diagnosis of major depressive disorder for-reportedly- making suicidal statements since ( patient --reportedly- stated that he was going to kill self so that he can be with his brother who suddenly in May 2016). Patient had 2 inpatient psychiatric admissions one of them was at [facility] and the other one was at following a suicide attempt. Risk factors for suicide and violence/homicide: (1) Recent thoughts of suicide; (2) Severe depression, 3) Single White Male over 55. Protective and risk-mitigating factors for suicide and violence/homicide: 1) No family history of suicides, 2) Does not have a terminal illness 3) Does not have chronic severe pain, 4) No alcohol or substance use disorder, 5) Denied command hallucinations Diagnoses: Major depressive disorder, severe with psychosis/ Catatonia Rule out schizoaffective disorder CAD with history Angina & stenting Treatment Plan Update: Inpatient psychiatric care: constant observation until deemed unnecessary by nursing, assessments, medication and vitals by nursing and nurses aides, group therapy, milieu therapy, social work to evaluate and coordinate aftercare plans, and psychiatrist to evaluate patient daily Continue [place] to 300 mg twice daily Continue Sertraline 100 mg daily Abilify 5 mg daily Continue Zyprexa 5 mg at bedtime Continue Ativan 1.5 mg at bedtime for catatonia [place] monitoring blood work for 04/23/2017
[2017-04-21 16:06] VITALS: BP 123/67
--- NOTE | 2017-04-21 17:28 | SOCIAL WORKER PROG NOTE PSYCH ---
Social Work Progress Note Progress Note 4:00pm This video game script writer attempted to meet with patient, who was in his room. He asked that this video game script writer go to the kitchen to get him some juice. Upon refusing to do so, patient closed his eyes and refused to respond to any further questions or engage in the conversation.
[2017-04-21 20:06] VITALS: BP 146/86
[2017-04-22 08:01] VITALS: BP 129/68
--- NOTE | 2017-04-22 12:53 | CP SOUTH PROGRESS NOTE PSYCH ---
Psych (Inpt) Progress Note Progress Note RN, Group Therapist, MERCHANDISING EXECUTION MANAGER, and Psychiatrist discussed Keiko progress and care plan. BP 129/68, pulse was 75 beats per minute, temperature was 98.6 Fahrenheit new lines and respirations were 16 per minute Mental Status Examination: Von is still spending too much time in bed, arousable, answers 2 or 3 questions then becomes dismissive with Thank you in a tone indicating go away denied thinking of suicide, reduced psychomotor activity, flat affect, thought process remains difficult to chemical machine tender, no report of delusions, denied hallucinations , reportedly mood is depressed, oriented to place and person, seems to have reasonable attention, information processing and short-term memory , no violent thoughts/homicidal ideation Summary & Risk Assessment Update: Von is a 66-year-old single White male who reportedly has a diagnosis of major depressive disorder for-reportedly- making suicidal statements since ( patient --reportedly- stated that he was going to kill self so that he can be with his brother who suddenly in May 2016). Patient had 2 inpatient psychiatric admissions one of them was at [facility] and the other one was at [facility] following a suicide attempt. Risk factors for suicide and violence/homicide: (1) Recent thoughts of suicide (2) Severe depression 3) Single White Male over 55 Protective and risk-mitigating factors for suicide and violence/homicide: 1) No family history of suicides 2) Does not have a terminal illness 3) Does not have chronic severe pain 4) No alcohol or substance use disorder 5) Denied command hallucinations Diagnoses: Major depressive disorder, severe with psychosis/ Catatonia Rule out major neurocognitive disorder Rule out schizoaffective disorder CAD , history Angina & stenting Treatment Plan Update: Increase Zyprexa to 7.5 mg at bedtime D/C PRN Ativan Change Ativan 1.5 mg at bedtime to Klonopin 1 mg at bedtime Continue [place] 300 mg twice daily Continue Sertraline 100 mg daily Abilify 5 mg daily [place] monitoring blood work for 04/23/2017 Inpatient psychiatric care: constant observation until deemed unnecessary by nursing, assessments, medication and vitals by nursing and nurses aides, group therapy, milieu therapy, social work to evaluate and coordinate aftercare plans, and psychiatrist to evaluate patient daily
[2017-04-22 13:05] VITALS: BP 104/74
[2017-04-22 16:05] VITALS: BP 154/96
--- NOTE | 2017-04-22 16:32 | SOCIAL WORKER PROG NOTE PSYCH ---
Social Work Progress Note Progress Note 10:50am This automatic typewriter inspector attempted to meet with patient, however, he refused to engage. This automatic typewriter inspector reviewed case with Farzaneh (CHARLENE Sanchez RN) who stated that the patient informed her this morning that he wanted to , that he "hurts all over." She stated that he was move active yesterday, eating all of his meals in the kitchen. She stated that he reported that he was not feeling well, however, his vitals were normal. 11:30am This automatic typewriter inspector spoke with Cinthya to provide concurrent review ([phone]). The next review is due on 04/24/17.
[2017-04-22 20:15] VITALS: BP 151/91
[2017-04-23 08:13] LABS: LITHIUM 0.7 mmol/L (0.6-1.2)
[2017-04-23 08:19] VITALS: BP 130/78
--- NOTE | 2017-04-23 11:29 | CP SOUTH PROGRESS NOTE PSYCH ---
Psych (Inpt) Progress Note Progress Note Vitals Blood Pressure 130/78 04/23/17 0906 Pulse Rate 73 04/23/17 0906 Temperature 96.9 04/23/17 0819
--- NOTE | 2017-04-23 11:43 | CP SOUTH PROGRESS NOTE PSYCH ---
Psych (Inpt) Progress Note Progress Note RN, Group Therapist, CARTOON DESIGNER, and Psychiatrist discussed [place] progress and care plan. Vitals Blood Pressure 130/78 ; Pulse Rate 73 ; Temperature 96.9 Fahrenheit Lab ALT 26 U/L 04/13/17 1715 AST 19 U/L 04/13/17 1715 Alkaline Phosphatase 68 U/L 04/13/17 1715 Anion Gap 12 04/23/17 0620 BUN 16 mg/dL 04/23/17 0620 BUN/Creatinine Ratio 20.0 % 04/23/17 0620 Calcium 9.1 mg/dL 04/13/17 1715 Carbon Dioxide 25 mmol/L 04/23/17 0620 Chloride 104 mmol/L 04/23/17 0620 Creatinine 0.8 mg/dL 04/23/17 0620 Estimated GFR > 60 ml/min 04/23/17 0620 Free T4 1.06 ng/dL 04/23/17 0620 Glucose 151 mg/dL H 04/13/17 1715 Magnesium 1.8 mg/dL 11/12/11 2250 Potassium 4.5 mmol/L 04/23/17 0620 Sodium 140 mmol/L 04/23/17 0620 TSH 1.660 uIU/mL 06/20/16 1949 TSH &T3 &Free T4 Intrp 4.450 uIU/mL H 04/23/17 0620 Thyroxine (T4) 5.7 ug/dL 06/20/161948 Total Bilirubin 0.9 mg/dL 04/13/17 1715 Total T3 0.60 ng/mL L 04/23/17 0620 Ur Leukocyte Esterase NEG 04/23/17 0650 Ur Specific [place] 1.010 04/23/17 0650 Urine Bilirubin NEG 04/23/17 0650 Urine Clarity CLEAR 04/23/17 0650 Urine Color YEL 04/23/17 0650 Urine Glucose NEG MG/DL 04/23/17 0650 Urine Hemoglobin NEG 04/23/17 0650 Urine Ketones NEG 04/23/17 0650 Urine Nitrite NEG 04/23/17 0650 Urine Protein NEG MG/DL 04/23/17 0650 Urine Urobilinogen 0.2 EU/dl 04/23/17 0650 Urine pH 6.0 04/23/17 0650 Vitals Blood Pressure 130/78 04/23/17 0906 Pulse Rate 73 04/23/17 0906 Temperature 96.9 04/23/17 0819 Mental Status Examination: spending too much time in bed, arousable, answers 2 or 3 questions then becomes dismissive with a dismissive thank you ad nauseam limited conversation, denied thinking of suicide, reduced psychomotor activity, flat affect, ? thought process? and ? thought content? denied hallucinations, reported mood as depressed 10/10, oriented to place and person, seems to have reasonable attention, information processing and short-term memory, no violent thoughts/homicidal ideation Summary & Risk Assessment Update: Von is a 66-year-old single White male who reportedly has a diagnosis of major depressive disorder for-reportedly- making suicidal statements since ( patient --reportedly- stated that he was going to kill self so that he can be with his brother who suddenly in May 2016). Patient had 2 inpatient psychiatric admissions one of them was at [facility] and the other one was at [facility] following a suicide attempt. Risk factors for suicide and violence/homicide: (1) Recent thoughts of suicide (2) Severe depression 3) Single White Male over 55 Protective and risk-mitigating factors for suicide and violence/homicide: 1) No family history of suicides 2) Does not have a terminal illness 3) Does not have chronic severe pain 4) No alcohol or substance use disorder 5) Denied command hallucinations Diagnoses: Major depressive disorder, severe with psychosis/ Catatonia Rule out major neurocognitive disorder Rule out schizoaffective disorder CAD, history Angina & stenting Treatment Plan Update: Continue Zyprexa 7.5 mg at bedtime Klonopin 1 mg at bedtime Continue [place] 300 mg twice daily Continue Sertraline 100 mg daily D/C Abilify 5 Inpatient psychiatric care: constant observation until deemed unnecessary by nursing, assessments, medication and vitals by nursing and nurses aides, group therapy, milieu therapy, social work to evaluate and coordinate aftercare plans, and psychiatrist to evaluate patient daily
[2017-04-23 12:33] VITALS: BP 151/80
--- NOTE | 2017-04-23 14:56 | CP SOUTH PROGRESS NOTE PSYCH ---
Psych (Inpt) Progress Note Progress Note Lab [place] 0.7 mmol/L 04/23/17 0620
[2017-04-23 16:14] VITALS: BP 139/91
--- NOTE | 2017-04-23 18:20 | SOCIAL WORKER PROG NOTE PSYCH ---
Social Work Progress Note Progress Note This clinical writer met with patient. Patient appeared slightly more willing to meet with this clinical writer, however, only briefly. He discussed his favorite foods, particularly, hamburgers. 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 Patient stated that he believes that he is going to hell. He would not expand further. He denied any safety concerns and indicated that he did not want to continue this conversation at this time.
[2017-04-23 19:46] VITALS: BP 141/78
[2017-04-24 08:13] VITALS: BP 129/75
--- NOTE | 2017-04-24 08:43 | CP SOUTH PROGRESS NOTE PSYCH ---
Psych (Inpt) Progress Note Progress Note RN, Group Therapist, RIBBON HAND, and Psychiatrist discussed Keiko progress and care plan. Vitals: Blood Pressure: 129/75; Pulse Rate: 76/min; Temperature: 97.2 degrees Fahrenheit Mental Status Examination: Von was in bed, arousable but very disinterested in interview Continues with the dismissive thank you ad nauseam denied thinking of suicide, reduced psychomotor activity, flat affect, ? thought process? Denied feeling paranoid, denied hallucinations, reported mood as depressed, oriented to place and person, seems to have reasonable attention, information processing and short-term memory, no violent thoughts/homicidal ideation Summary & Risk Assessment Update: Von is a 66-year-old single White male who was admitted to [facility] for-reportedly- making suicidal statements since (patient --reportedly- stated that he was going to kill self so that he can be with his brother who suddenly in May 2016). Patient had 2 inpatient psychiatric admissions one of them was at [facility] and the other one was at [facility] following a suicide attempt. Risk factors for suicide and violence/homicide: (1) Recent thoughts of suicide (2) Severe depression 3) Single White Male over 55 Protective and risk-mitigating factors for suicide and violence/homicide: 1) Currently denying thoughts of suicide for several days 2) Does not have a terminal illness 3) Does not have chronic severe pain 4) No alcohol or substance use disorder 5) Denied command hallucinations 6) Does not have access to firearms (7) No family history of suicides Diagnoses: Major depressive disorder, severe with psychosis/ Catatonia Rule out major neurocognitive disorder Rule out schizoaffective disorder CAD, history Angina & stenting Treatment Plan Update: Reduce [place] to 150 mg twice daily (no perceptible benefits and Low T3, High TSH) Add Methylphenidate 10 mg daily for augmenting sertraline Reduce Zyprexa to 5 mg at bedtime Continue Klonopin 1 mg at bedtime Continue carvedilol Continue Sertraline 100 mg daily Inpatient psychiatric care: constant observation until deemed unnecessary by nursing, assessments, medication and vitals by nursing and nurses aides, group therapy, milieu therapy, social work to evaluate and coordinate aftercare plans, and psychiatrist to evaluate patient daily
[2017-04-24 12:08] VITALS: BP 122/60
--- NOTE | 2017-04-24 14:36 | CT SCAN REPORT ---
EXAMINATION: CT HEAD WITHOUT CONTRAST CLINICAL INFORMATION: Rule out intracranial lesion or bleed. Deteriorating mental function. COMPARISON: CT head 11/13/2011. TECHNIQUE: Contiguous axial imaging was performed from the skull base to vertex without intravenous administration of contrast. DLP: 718 mGy-cm FINDINGS: Mild diffuse commensurate prominence of ventricles and sulci is noted and is within expected limits of normal anatomic variation. No intracranial hemorrhage, tumors or acute infarcts are noted. No focal parenchymal lesions of the brain are visualized. Mild scattered atherosclerotic calcifications are noted within the cavernous portions of the internal carotid arteries and within the intradural segments of the vertebral arteries. Opacification of a moderate number scattered ethmoid air cells is noted. Focal opacification is present in the sphenoid sinus and may represent focal mucosal thickening or retained secretions. A mucosal retention cyst newly identified compared with 11/13/2011 could have a similar appearance. IMPRESSION: 1. No acute intracranial abnormalities. 2. Mild intracranial atherosclerosis. 3. Moderate scattered retained secretions and mucosal thickening within the ethmoid air cells.
--- NOTE | 2017-04-24 14:43 | SOCIAL WORKER PROG NOTE PSYCH ---
Social Work Progress Note Progress Note 10:12am This scenario writer spoke with Magda (RN at [facility], the assisted living facility where the patient has been living). She reported that during his stay at this facility, the patient had been isolating, demonstrating worsening depression and a progressively slow decline in his mood. She stated that the patient was transported to the ED when he reported SI. 10:28am This scenario writer met with patient. He remained in his bed, however, demonstrated more eye contact than previous discussions. While appeared slightly more engaged in this conversation, the meeting was brief, at the patient's request. Patient complained of a headache (which was reported to nursing) and stated that he "wants to rest." Patient described his mood as "not so good"; he would not expand further. 10:46am This scenario writer spoke with patient's cousin, Cortez. Cortez shared that the patient has always "kept to himself" at baseline, however, was very close to the patient's brother who in May 2016. Cortez shared that the patient's depression appeared to worsen over the holidays, which was observed by Cortez during weekly visits to [facility]. Cortez shared that the patient has experiences numerous "boughts of " throughout his lifetime in regard to health issues. Cortez further stated, "Von's brother would always save him." Cortez stated that the patient has been unable to attend appointments outside of the assisted living facility. He was informed of behavioral therapy services that can visit the patient in the home. Cortez felt that this would be an appropriate service to consider. Cortez was agreeable to a family meeting sometime next week and will be contacted in order to schedule one. 12:45pm This scenario writer spoke with Stephen Goodson ([phone]) for a concurrent review. Upon being provided with the clinical information, he stated that a peer review is indicated. This scenario writer was contacted to schedule the peer review: 04/25/17 at 11: 30am with Dr. Haynes. A message was relayed to Dr. Dixon regarding this peer review and informed of the 10 minute window. In the event that the call is missed, it can be returned within 10 minutes at [phone].
[2017-04-24 16:12] VITALS: BP 118/58
[2017-04-24 19:50] VITALS: BP 129/64
[2017-04-25 07:47] VITALS: BP 124/79
--- NOTE | 2017-04-25 11:56 | CP SOUTH PROGRESS NOTE PSYCH ---
Psych (Inpt) Progress Note Progress Note Vitals Blood Pressure 124/79 04/25/17 0952 Blood Pressure 124/70 04/25/17 1230 Pulse Rate 71 04/25/17 0952 Pulse Rate 70 04/25/17 1230 Respiratory Rate 16 04/25/17 0952 Temperature 97.6 04/25/17 0952 RN, Group Therapist, [employer] COMM[employer]ICATIONS SERGEANT, and Psychiatrist discussed Keiko progress and care plan. Mental Status Examination: Von was in bed, arousable but very disinterested in interview denied thinking of suicide but says he does not mind dying of natural causes reduced psychomotor activity, flat affect, he denied hallucinations when I asked him this morning but told An Izquierdo LCSW that he was hearing a voice telling him "go to hell." reported mood as depressed 10/10, oriented to place and person, poor attention and information processing, no violent thoughts/homicidal ideation Summary & Risk Assessment Update: Von is a 66-year-old single White male who was admitted to [facility] for-reportedly- making suicidal statements since (patient --reportedly- stated that he was going to kill self so that he can be with his brother who suddenly in May 2016). Patient had 2 inpatient psychiatric admissions one of them was at [facility] and the other one was at [facility] following a suicide attempt. Risk factors for suicide and violence/homicide: (1) Recent thoughts of suicide (2) Severe depression 3) Single White Male over 55 4) Reporting hallucinations Protective and risk-mitigating factors for suicide and violence/homicide: 1) Currently denying thoughts of suicide for several days 2) Does not have a terminal illness 3) Does not have chronic severe pain 4) No alcohol or substance use disorder 5) Denied command hallucinations 6) Does not have access to firearms (7) No family history of suicides Diagnoses: Major depressive disorder, severe with psychosis/ Catatonia Rule out major neurocognitive disorder Rule out schizoaffective disorder CAD, history Angina & stenting Treatment Plan Update: D/C Nunda as there were no perceptible benefits and started showing Low T3, High TSH D/C Methylphenidate (because he reported A/H) Increase Zyprexa back to 7.5 mg at bedtime Continue Klonopin 1 mg at bedtime Continue carvedilol Continue Sertraline 100 mg daily Inpatient psychiatric care: constant observation until deemed unnecessary by nursing, assessments, medication and vitals by nursing and nurses aides, group therapy, milieu therapy, social work to evaluate and coordinate aftercare plans, and psychiatrist to evaluate patient daily
[2017-04-25 12:30] VITALS: BP 124/70
[2017-04-25 16:01] VITALS: BP 116/72
--- NOTE | 2017-04-25 17:41 | SOCIAL WORKER PROG NOTE PSYCH ---
Social Work Progress Note Progress Note 2:35pm Elba (medical student) and this commercial real estate underwriter met with patient. He was in bed, however, appeared more engaged in the conversation than previous days. Patient shared that he feels that he is going to hell and that he hears God speaking to him (inside his head) informing him that he will be going to hell. Patient denied SI. He stated that he continues to not feel well and feels that he is "frozen". Patient identified that he is in [facility] and that it is winter time. When asked about the day of the week, he responded, "Friday." Patient stated that he no longer wanted to meet and that he wanted to "rest". Following Dr. Dixon's peer to peer review this morning, this commercial real estate underwriter received a call stating that no additional days would be authorized. This commercial real estate underwriter contacted Ester ([phone]) inquiring about providing additional clinical information (referring to patient's reports of AH) and was informed that this would need to be done through the appeals. She stated that Dr. Dixon had requested an appeal and this commercial real estate underwriter was transferred to [facility] to schedule it: 04/28/[address] Nascimento. Per Joan, Dr. Nascimento will call the nursing station (they are informed) and ask to speak with Dr. Dixon. If the call is missed, Dr. Dixon can call them within ten minutes of the scheduled time (11am) at [phone].
[2017-04-25 20:00] VITALS: BP 110/82
[2017-04-26 08:45] VITALS: BP 138/88
--- NOTE | 2017-04-26 09:11 | CP SOUTH PROGRESS NOTE PSYCH ---
Psych (Inpt) Progress Note Progress Note Include the following elements, when applicable: Involvement in the active treatment of the patient with behavioral observations of the patient and the patient's response to the treatment. Review of the ongoing treatment process in the context of the treatment plan. Indication of how multi-disciplinary staff members are carrying out the treatment plan. Plans for future interventions and recommendations for revision of the treatment plan. Liaison with other physicians/providers. Progress Note: SUBJECTIVE: Patient seated in bed in dark room awake. Patient stated he was feeling "good" today, but still remaining isolative and room. Was able to get up for meals. Patient denied any pain. Denied SI/HI/AVH/SIB. No side effects to medications. No abnormal movements reported. Patient cut off senior medical writer at this point and stated he just wanted to rest. OBJECTIVE: Per nursing, pt did well overnight without any acute events. Pt remained in behavioral control, adherent with medications, but remained isolative in bed most of the day, despite encouragement. VSS. Current Medications Sig/Moises Start time Last Medication Dose Route Stop Time Status Admin Acetaminophen 650 MG Q4P PRN 04/15 1415 AC 04/24 PO 1244 Al Hydroxide/Mg 30 ML Q4-6 PRN PRN 04/15 1415 AC Hydroxide PO Atorvastatin Calcium 40 MG 04/13 AC 04/25 PO 2254 Bethanechol Chloride 25 MG TID 04/13 2199 AC 04/25 PO 2251 Carvedilol 12.5 MG BID 04/16 220 AC 04/25 PO 2252 Clonazepam 1 MG AT BEDTIME 04/22 2199 AC 04/25 PO 04/29 2158 2256 Haloperidol 3 MG Q4P PRN 04/15 1415 AC 04/16 PO 0856 Riva Carbonate 150 MG BID 04/24 1000 DC 04/25 PO 0952 Magnesium Hydroxide 30 ML AT BEDTIME NEED.. 04/15 1415 AC PO Methylphenidate HCl 10 MG DAILY 04/24 999 DC 04/25 PO 0954 Olanzapine 7.5 MG AT BEDTIME 04/25 2199 AC 04/25 PO 2255 Olanzapine 5 MG AT BEDTIME 04/24 2199 DC 04/24 PO 2201 Sertraline HCl 100 MG DAILY 04/17 1000 AC 04/25 PO 0952 Tamsulosin HCl 0.8 MG 04/13 AC 04/25 PO 2253 Vital Signs Date Time Temp Pulse Resp B/P B/P Pulse O2 O2 Flow FiO2 Mean Ox Delivery Rate 04/26 0745 97.2 68 138/88 04/25 2252 98.5 62 16 110/82 04/25 2251 98.5 62 16 110/82 04/25 2000 98.5 62 110/82 04/25 1601 64 116/72 04/25 1230 70 124/70 04/25 0952 97.6 71 16 124/79 MSE: GENERAL: Alert and oriented, good eye contact, disheveled in hospital gown, seated in bed, no apparent distress SPEECH: Moderate rate and volume, normal prosody, brief MOTOR: No tics, tremors, stereotypy, or abnormal movements MOOD: "Good" AFFECT: bland, mood incongruent, constricted range, non-labile, fairly related THOUGHT PROCESS: Logical, linear and goal-directed THOUGHT CONTENT: No SI/HI/AVH/SIB, no apparent grandiosity, paranoia, delusions , obsessions, ruminations, but not able to fully evaluate d/t pt not wanting to speak further COGNITION: No apparent deficit in attention, memory or concentration JUDGMENT: poor-fair INSIGHT: poor ASSESSMENT: Von is a 66-year-old single White male who was admitted to [facility] for-reportedly- making suicidal statements since (patient --reportedly - stated that he was going to kill self so that he can be with his brother who suddenly in May 2016). Patient had 2 inpatient psychiatric admissions one of them was at [facility] and the other one was at [facility] following a suicide attempt. Today, patient is tolerating medications with a subjectively improved mood but continues to remain isolative and room, not wishing to engage with senior medical writer. Diagnoses: Major depressive disorder, severe with psychosis/ Catatonia Rule out major neurocognitive disorder Rule out schizoaffective disorder CAD, history Angina & stenting PLAN: -maintain safety, vs tid, q15min checks, encourage OOB -continue meds, tolerating increase in zyprexa to 7.5 qhs -would recheck TSH/T4 is 6 weeks to see if improved after Li d/c'ed -continue plan Treatment Plan Update: D/C Riva as there were no perceptible benefits and started showing Low T3, High TSH D/C Methylphenidate (because he reported A/H) Increase Zyprexa back to 7.5 mg at bedtime Continue Klonopin 1 mg at bedtime Continue carvedilol Continue Sertraline 100 mg daily Inpatient psychiatric care: constant observation until deemed unnecessary by nursing, assessments, medication and vitals by nursing and nurses aides, group therapy, milieu therapy, social work to evaluate and coordinate aftercare plans, and psychiatrist to evaluate patient daily PLAN: -maintain safety, vs tid, q15min checks -continue meds -continue plan
[2017-04-26 16:23] VITALS: BP 125/61
[2017-04-26 20:04] VITALS: BP 146/88
--- NOTE | 2017-04-27 00:09 | CP SOUTH PROGRESS NOTE PSYCH ---
Psych (Inpt) Progress Note Progress Note Progress Note: SUBJECTIVE: Patient lying in bed asleep with lights on, easily woken to voice. Patient stated he was doing "good." Denied any pain. Denied current SI/AVH but on further questioning patient just repeated "thank you, goodbye." Patient was up for meals. OOB encouraged. OBJECTIVE: Per nursing, pt did well overnight without any acute events. Pt remained in behavioral control, adherent with medications, but remained isolative in bed most of the day, despite encouragement. VSS. Current Medications Sig/Moises Start time Last Medication Dose Route Stop Time Status Admin Acetaminophen 650 MG Q4P PRN 04/15 1415 AC 04/24 PO 1244 Al Hydroxide/Mg 30 ML Q4-6 PRN PRN 04/15 1415 AC Hydroxide PO Atorvastatin Calcium 40 MG 04/130 AC 04/26 PO 2222 Bethanechol Chloride 25 MG TID 04/13 2200 AC 04/26 PO 2222 Carvedilol 12.5 MG BID 04/16 2200 AC 04/26 PO 2222 Clonazepam 1 MG AT BEDTIME 04/22 2200 AC 04/26 PO 04/29 215 2223 Haloperidol 3 MG Q4P PRN 04/15 1415 AC 04/16 PO 0856 Magnesium Hydroxide 30 ML AT BEDTIME NEED.. 04/15 1415 AC PO Olanzapine 7.5 MG AT BEDTIME 04/25 2200 AC 04/26 PO 2222 Sertraline HCl 100 MG DAILY 04/17 1000 AC 04/26 PO 1119 Tamsulosin HCl 0.8 MG 04/13 2200 AC 04/26 PO 2222 Vital Signs Date Time Temp Pulse Resp B/P B/P Pulse O2 O2 Flow FiO2 Mean Ox Delivery Rate 04/26 2221 98.2 87 16 146/88 04/26 2221 98.2 87 16 146/88 04/26 2003 98.2 87 146/88 04/26 1623 74 125/61 04/26 1122 97.2 68 16 138/88 04/26 0845 97.2 68 138 MSE: GENERAL: Alert and oriented, minimal eye contact, disheveled in hospital gown, lying in bed, no apparent distress SPEECH: Moderate rate and volume, brief MOTOR: No tics, tremors, stereotypy, or abnormal movements MOOD: "Good" AFFECT: Aloof, mood incongruent, constricted range, non-labile, poorly related THOUGHT PROCESS: Logical, linear and goal-directed THOUGHT CONTENT: No SI/HI/AVH/SIB, no apparent grandiosity, paranoia, delusions , obsessions, ruminations, but not able to fully evaluate d/t pt not wanting to speak further COGNITION: Possibly impaired JUDGMENT: poor-fair INSIGHT: poor ASSESSMENT: Von is a 66-year-old single White male who was admitted to [facility] for-reportedly- making suicidal statements since (patient --reportedly - stated that he was going to kill self so that he can be with his brother who suddenly in May 2016). Patient had 2 inpatient psychiatric admissions one of them was at [facility] and the other one was at [facility] following a suicide attempt. Today, patient continues to remain isolative with minimal interactions with peers and staff, medication adherent. Diagnoses: Major depressive disorder, severe with psychosis/ Catatonia Rule out major neurocognitive disorder Rule out schizoaffective disorder CAD, history Angina & stenting PLAN: -maintain safety, vs tid, q15min checks, encourage OOB -continue meds, tolerating increase in zyprexa to 7.5 qhs -would recheck TSH/T4 is 6 weeks to see if improved after Li d/c'ed -continue plan -continue meds, tolerating increase in zyprexa to 7.5 qhs -would recheck TSH/T4 is 6 weeks to see if improved after Li d/c'ed -continue plan
[2017-04-27 08:55] VITALS: BP 149/80
[2017-04-27 12:36] VITALS: BP 152/98
[2017-04-27 16:30] VITALS: BP 155/88
[2017-04-27 20:09] VITALS: BP 112/70
[2017-04-28 08:27] VITALS: BP 138/84
--- NOTE | 2017-04-28 10:32 | CP SOUTH PROGRESS NOTE PSYCH ---
Psych (Inpt) Progress Note Progress Note Vitals Blood Pressure 138/84 04/28/1724 Pulse Rate 91 04/28/17923 Respiratory Rate 16 04/28/17923 Temperature 96.8 04/28/17923 MSE: The patient was alert, minimal eye contact, disheveled in hospital gown, lying in bed, no apparent distress, was moderate rate and volume, brief, no tics, tremors, stereotypy, or abnormal, movements; mood was depressed, constricted range, non-labile, poorly related; thoughts were logical, linear and goal- directed; told RN CVICU today he thinks hes the devil, impaired cognition Assessment: Von is a 66-year-old single White male who was admitted to [facility] for-reportedly- making suicidal statements since (patient --reportedly- stated that he was going to kill self so that he can be with his brother who suddenly in May 2016). Patient had 2 inpatient psychiatric admissions one of them was at [facility] and the other one was at [facility] following a suicide attempt, patient continues to remain isolative with minimal interactions with peers and staff, medication adherent. Diagnoses: Major depressive disorder, severe with psychosis/ Catatonia Rule out major neurocognitive disorder Rule out schizoaffective disorder CAD, history Angina & stenting PLAN: maintain safety, vs tid, q15min checks, encourage OOB Increase Zyprexa to 10 mg QHS -would recheck TSH/T4 is 6 weeks to see if improved after -continue plan
[2017-04-28 12:31] VITALS: BP 152/63
--- NOTE | 2017-04-28 14:17 | IP INCIDENTAL NOTE PSYCH ---
Incidental Note Notation: Patient refused to do a Mini Mental Status Exam I asked him about ECT, he said he never had it. I educated him a bout what it is and its benefits, he said "I am not having it" I explained how effective it can be, he repeated his refusal to consider it.
--- NOTE | 2017-04-28 16:14 | SOCIAL WORKER PROG NOTE PSYCH ---
Social Work Progress Note Progress Note This copy writer met with patient. He complained of having a migraine headache and wanted to rest. He was agreeable to meeting briefly. Patient stated, "I was born a devil. I'm going to hell." Patient reported that he continues to hear a voice from God stating that he is going to hell, but is unsure as to why. When asked about SI/HI, patient denied and stated, "never." Patient denied VH. Patient requested to end this meeting: "I just want to rest."
[2017-04-28 16:29] VITALS: BP 164/97
[2017-04-29 08:03] VITALS: BP 155/87
--- NOTE | 2017-04-29 12:20 | CP SOUTH PROGRESS NOTE PSYCH ---
Psych (Inpt) Progress Note Progress Note Vital Signs Date Time Temp Pulse Resp B/P B/P Pulse O2 O2 Flow FiO2 Mean Ox Delivery Rate 04/29 1009 97.2 85 16 155/87 04/29 0803 97.2 85 155/87 04/28 2138 78 158/90 04/28 2137 78 158/90 04/28 1629 81 164/97 04/28 1231 81 152/63 MSE: Von was resting in bed. he earlier had an episode of coughing followed by vomitting He was arousable, he seemed more cooperative today and willing to answer questions He knew the day of the week and the exact date, place, person, and circumstances better eye contact, did not seem to be in physical pain still not that talkative, no abnormal movements; Von reported that his mood is still depressed (but he feels better than last week), he does show objective signs of improvement according to staff his thoughts were logical, he denied hallucinations --to me-- today (but he sometimes opens up to his PLASTER PATTERNMAKER more than he does to other people, including me) His short term memory was intact Assessment: Von is a 66-year-old single White male who was admitted to the inpatient psychiatric unit on for-reportedly- making suicidal statements since (patient --reportedly - stated that he was going to kill self so that he can be with his brother who suddenly in May 2016). Patient had 2 inpatient psychiatric admissions one of them was at [facility] and the other one was at [facility] following a suicide attempt, patient continues to remain isolative with minimal interactions with peers and staff, medication adherent. Diagnoses: Major depressive disorder, severe with psychosis/ Catatonia Rule out major neurocognitive disorder Rule out schizoaffective disorder CAD, history Angina & stenting PLAN: maintain safety, vs tid, q15min checks, encourage OOB Continue Zyprexa 10 mg QHS
[2017-04-29 12:26] VITALS: BP 139/77
[2017-04-29 15:53] VITALS: BP 160/108
--- NOTE | 2017-04-29 16:05 | SOCIAL WORKER PROG NOTE PSYCH ---
Social Work Progress Note Progress Note 11:15am This newswriter met with patient. Patient reported that he had not been feeling well, experiencing nausea and vomitting. Patient remained in bed, but willing to meet. Patient reported that he had been experiencing AH from God or an Parish stating that he was going to hell. Patient stated that he believes he will , "Anyday I'll be taken by the Lord." Patient denied SI and denied any plan, thoughts or intent to end his own life. Patient expressed interest in returning to the assisted living upon discharge. He stated that he is not interested in any mental health treatment or therapy aside from medication management. Patient identified that he is currently in , that this newswriter is his aids social worker and that the day is Friday. Patient was agreeable to signing in voluntarily. The form was completed and filed in his chart. 12:48pm This newswriter spoke with Cinthya for a concurrent review ([phone]). Clinical was provided and Cinthya requested to call this newswriter after reviewing the clinical with the doctor. Upon receiving a return call from Cinthya, this newswriter was informed that patient is authorized through 05/02/17 with a review due on .
[2017-04-29 19:54] VITALS: BP 161/99
[2017-04-29 23:37] VITALS: BP 158/98
[2017-04-30 08:00] VITALS: BP 140/60
[2017-04-30 12:24] VITALS: BP 151/76
--- NOTE | 2017-04-30 13:46 | CP SOUTH PROGRESS NOTE PSYCH ---
Psych (Inpt) Progress Note Progress Note Vital Signs Date Time Temp Pulse Resp B/P 04/30 1224 92 151/76 04/30 0846 87 140/60 04/30 0800 97.5 87 140/60 04/29 2337 82 158/98 04/29 2223 98.5 93 16 161/99 MSE: Von was resting in bed. No coughing or vomitting today (so far0. He was arousable, he was cooperative today and willing to answer questions. He knew the day of the week and the exact date, place, person, and circumstances. He spelled WORLD backwards without difficulty, he struggled with serial 7s ( scored only 1 out of 5), short term memory was intact better eye contact, more engaged, no abnormal movements; Von reported that his mood is still depressed (but he feels better than last week), objective signs of improvement according to staff his thoughts were logical, he denied hallucinations and there were no delusions Assessment: Von is a 66-year-old single White male who was admitted to the inpatient psychiatric unit on for-reportedly- making suicidal statements since (patient --reportedly - stated that he was going to kill self so that he can be with his brother who suddenly in May 2016). Patient had 2 inpatient psychiatric admissions one of them was at [facility] and the other one was at [facility] following a suicide attempt, patient continues to remain isolative with minimal interactions with peers and staff, medication adherent. Diagnoses: Major depressive disorder, severe with psychosis/ Catatonia Rule out schizoaffective disorder CAD, history Angina & stenting PLAN: Continue Sertraline 200 mg daily maintain safety, vs tid, q15min checks, encourage OOB Continue Zyprexa 10 mg QHS CAD, history Angina & stenting PLAN: maintain safety, vs tid, q15min checks, encourage OOB Continue Zyprexa 10 mg QHS
[2017-04-30 15:59] VITALS: BP 148/94
--- NOTE | 2017-04-30 16:48 | SOCIAL WORKER PROG NOTE PSYCH ---
Social Work Progress Note Progress Note 11:25am This aligner typewriter met with patient. He denied SI/HI/AH/VH. He continues to report the belief that he is going to hell; he denied any AH today. Patient stated that he would be willing to consider meeting with a therapist if they come to the assisted living facility. He complained of a migraine headache and requested to rest. He was agreeable to this aligner typewriter contacting his cousin, Cortez, to schedule a family meeting. This aligner typewriter spoke with patient's cousin, Cortez, by phone. A family meeting has been scheduled for 05/02/17 at 10:30am.
[2017-04-30 19:23] VITALS: BP 156/92
--- NOTE | 2017-05-01 07:37 | CP SOUTH PROGRESS NOTE PSYCH ---
Psych (Inpt) Progress Note Progress Note Vital Signs Date Time Temp Pulse B/P Pulse O2 O2 Flow FiO2 Ox Delivery Rate 05/01 815 99.4 95 160/102 05/01 0811 95 184/114 04/30 2122 86 150/90 04/30 2122 86 150/90 04/30 1922 98.2 84 156/92 04/30 1559 96 148/94 04/30 1224 92 151/76 Mental Status Examination: Von was arousable and seemed to be in good spirits, he said he was "resting" in bed. He was cooperative. He was more engaged, no abnormal movements; Von reported that his mood is still depressed (but he feels better than last week), objective signs of improvement according to staff his thoughts were logical. Von denied hallucinations today. There were no delusions Assessment: Von is a 66-year-old single White male who was admitted to the inpatient psychiatric unit on April 15, 2017 for-reportedly- making suicidal statements since [place] (patient --reportedly- stated that he was going to kill self so that he can be with his brother who suddenly in May 2016). Diagnoses: Major Depressive disorder, severe with psychosis/ Catatonia Rule out schizoaffective disorder CAD, history Angina & stenting Plan: D/C clonazepam (Klonopin) Continue sertraline 200 mg daily Safety checks q15min checks, Continue Zyprexa 10 mg QHS Continue Carvedilol 25 mg BID Nursing: assessments, vitals, and patient education Psychiatrist: evaluate mental status and monitor medications daily
[2017-05-01 08:16] VITALS: BP 160/102
[2017-05-01 12:09] VITALS: BP 141/97
[2017-05-01 15:56] VITALS: BP 150/82
--- NOTE | 2017-05-01 17:11 | SOCIAL WORKER PROG NOTE PSYCH ---
Social Work Progress Note Progress Note DEEPAK contacted [facility] nursing supervisior Marissa [phone] and notified her of Pt's progress and planned discharge tomorrow from [facility] back to their facility. Reviewed pt progress and confirmed they are willing to have him return. She requested that pt return anytime after 4pm because earlier in the day they won't have an RN to process pt's return. DEEPAK contact pt cousin Dg [phone]. He reports willingness to return pt to [facility] tomorrow afternoon. He also reports availablity for a family meeting at 3pm and then transport pt for discharge directly following the meeting.
[2017-05-02 07:58] VITALS: BP 142/97
--- NOTE | 2017-05-02 09:01 | CP SOUTH PROGRESS NOTE PSYCH ---
Psych (Inpt) Progress Note Progress Note Vital Signs Date Time Temp Pulse Resp B/P 05/02 0758 97.0 95 142/97 05/02 0751 99.4 91 16 150/82 05/01 2201 99.4 91 16 150/82 05/01 2201 99.4 91 16 150/82 15 1556 91 150/82 05/01 1209 94 141/97 Mental Status Examination: Von reported that he does not want a family meeting today. He reported that he is not ready to be discharged today. He reported that he is having thoughts of suicide today. He reported that he needs "a few more days here." Von was resting in bed but arousable. He was cooperative. He was more engaged, no abnormal movements; Von reported that his mood is still depressed (but he feels better than last week), objective signs of improvement according to staff. Saeed was coherent and his thoughts were logical. Von denied hallucinations today. There were no delusions Assessment: Von is a 66-year-old single White male who was admitted to the inpatient psychiatric unit on April 15, 2017 for-reportedly- making suicidal statements since (patient --reportedly- stated that he was going to kill self so that he can be with his brother who suddenly in May 2016). Myke showed significant improvement so far we were planning to discharge him today he seems to think that he needs a few more days and he seemed resourceful enough to claim that he was suicidal today. Diagnoses: Major Depressive disorder, severe with psychosis/ Catatonia Rule out schizoaffective disorder CAD, history Angina & stenting Plan: Continue sertraline 200 mg daily Safety checks q15min checks, Continue Zyprexa 10 mg QHS Continue Carvedilol 25 mg BID Nursing: assessments, vitals, and patient education Psychiatrist: evaluate mental status and monitor medications daily
[2017-05-02 11:54] VITALS: BP 121/72
[2017-05-02 15:56] VITALS: BP 130/67
--- NOTE | 2017-05-02 18:04 | SOCIAL WORKER PROG NOTE PSYCH ---
Social Work Progress Note Progress Note 1:05pm This designer writer met with patient. He reported SI and stated "I'm having morbid thoughts." Patient stated that he did not feel ready to discharge today. Patient stated that he believes "I am going to hell and that I am like the devil." He reported AH in which God is telling him that he is going to hell. Patient believes that he will so, "maybe from a heart attack." Patient complains of a headache. This designer writer spoke with CHARLENE Moy RN, who reported that he is taking his medications, eating his meals and walking without a walker. She reported that he struggles with ADL's and is not willing to shower. She was informed of the discussion this designer writer had with the patient (above). Per Dr. Dixon, patient will not discharge today and is not willing to have a family meeting. This designer writer spoke with patient's cousin, Cortez, to inform of this and cancel today's meeting. Today's family meeting had been rescheduled from 10 :30am this morning to 3pm this afternoon as discharge had been anticipated and Cortez requested a later time in order to be able to provide transportation back to the assisted living facility. 1:45pm This designer writer spoke with Cinthya for a concurrent review by phone ([phone]). Additional days were authorized with the next review due on 05/05/17.
[2017-05-02 19:54] VITALS: BP 130/51
[2017-05-03 08:42] VITALS: BP 142/96
--- NOTE | 2017-05-03 11:25 | CP SOUTH PROGRESS NOTE PSYCH ---
Psych (Inpt) Progress Note Progress Note Include the following elements, when applicable: Involvement in the active treatment of the patient with behavioral observations of the patient and the patient's response to the treatment. Review of the ongoing treatment process in the context of the treatment plan. Indication of how multi-disciplinary staff members are carrying out the treatment plan. Plans for future interventions and recommendations for revision of the treatment plan. Liaison with other physicians/providers. Progress Note: Pt notes that he ate breakfast but "just wants to rest." Pt declined further comment or interview. Denies SI or HI. Current Medications Sig/Moises Start time Last Medication Dose Route Stop Time Status Admin Acetaminophen 650 MG Q4P PRN 04/15 1415 AC 05/01 PO 1610 Al Hydroxide/Mg 30 ML Q4-6 PRN PRN 04/15 141 AC Hydroxide PO Atorvastatin Calcium 40 MG 04/13 AC 05/02 PO 2143 Bethanechol Chloride 25 MG TID 04/13 220 AC 05/03 PO 0910 Carvedilol 25 MG BID 04/29 2199 AC 05/03 PO 0910 Guaifenesin/ 10 ML Q4P PRN 04/29 1100 AC Dextromethorphan PO Haloperidol 3 MG Q4P PRN 04/15 1415 AC 04/16 PO 0856 Magnesium Hydroxide 30 ML AT BEDTIME NEED.. 04/15 141 AC PO Olanzapine 10 MG AT BEDTIME 04/28 2199 AC 05/02 PO 2143 Ondansetron HCl 4 MG Q6P PRN 04/29 1115 AC PO Sertraline HCl 200 MG DAILY 04/29 1000 AC 05/03 PO 0910 Tamsulosin HCl 0.8 MG 04/13 AC 05/02 PO 2142 Laboratory Tests 05/03 0710 Chemistry Hemoglobin A1c (4.2 - 5.8 %) Pending Triglycerides (<150 mg/dL) 161 H Cholesterol (< 200 MG/DL) 121 LDL Cholesterol, Calc (65 - 129 mg/dL) 58 L HDL Cholesterol (40 - 60 mg/dL) 31 L Cholesterol/HDL Ratio (0.00 - 4.88 %) 4 Vital Signs Date Time Temp Pulse Resp B/P B/P Pulse O2 O2 Flow FiO2 Mean Ox Delivery Rate 05/03 909 97.8 84 16 142/96 05/03 0842 97.8 84 142/96 05/02 2141 98.6 86 16 130/51 05/02 2141 98.6 86 16 130/51 05/02 1954 98.6 86 130/51 05/02 1556 83 130/67 05/02 1154 81 121/72 MSE General appearance: fair hygiene and grooming; Attitude: cooperative; Eye contact: appropriate; Movement: no psychomotor agitation or slowing; Speech: nl fluency, nl rate/rhythm, nl volume, nl prosody; Mood: "just want to rest" Affect: irritable, flat, appropriate, constricted, non-labile, congruent; Thought process: linear and goal-directed; Thought content: denied SI or HI, no paranoid ideation; Perception: denied hallucinations- auditory, visual, does not appear to be responding to internal stimuli; I/J: limited A/P: Pt with MDD with previous SI and FTT now improving. -Continue current medication regimen - May need medicine input given hyperlipidemia and already on statin -Encourage integration into the milieu
[2017-05-03 16:16] VITALS: BP 135/85
[2017-05-03 20:38] VITALS: BP 140/98
[2017-05-04 07:48] VITALS: BP 144/94
--- NOTE | 2017-05-04 13:14 | CP SOUTH PROGRESS NOTE PSYCH ---
Psych (Inpt) Progress Note Progress Note Include the following elements, when applicable: Involvement in the active treatment of the patient with behavioral observations of the patient and the patient's response to the treatment. Review of the ongoing treatment process in the context of the treatment plan. Indication of how multi-disciplinary staff members are carrying out the treatment plan. Plans for future interventions and recommendations for revision of the treatment plan. Liaison with other physicians/providers. Progress Note: Pt notes that eat breakfast. Feeling better today but wants to stay in bed. Denies SI or HI. Current Medications Sig/Moises Start time Last Medication Dose Route Stop Time Status Admin Acetaminophen 650 MG Q4P PRN 04/15 1415 AC 05/01 PO 1610 Al Hydroxide/Mg 30 ML Q4-6 PRN PRN 04/15 141 AC Hydroxide PO Atorvastatin Calcium 40 MG 04/13 AC 05/03 PO 2134 Bethanechol Chloride 25 MG TID 04/13 2199 AC 05/04 PO 0842 Carvedilol 25 MG BID 04/29 2199 AC 05/04 PO 0842 Guaifenesin 10 ML .STK-MED ONE 05/04 0132 DC PO 05/04 0133 Guaifenesin/ 10 ML Q4P PRN 04/29 1100 AC 05/04 Dextromethorphan PO 0843 Haloperidol 3 MG Q4P PRN 04/15 1415 AC 04/16 PO 0856 Magnesium Hydroxide 30 ML AT BEDTIME NEED.. 04/15 1415 AC PO Olanzapine 10 MG AT BEDTIME 04/28 220 AC 05/03 PO 2134 Ondansetron HCl 4 MG Q6P PRN 04/29 1115 AC PO Sertraline HCl 200 MG DAILY 04/29 1000 AC 05/04 PO 0842 Tamsulosin HCl 0.8 MG 04/13 AC 05/03 PO 2133 Laboratory Tests 05/03 0710 Chemistry Hemoglobin A1c (4.2 - 5.8 %) Pending Triglycerides (<150 mg/dL) 161 H Cholesterol (< 200 MG/DL) 121 LDL Cholesterol, Calc (65 - 129 mg/dL) 58 L HDL Cholesterol (40 - 60 mg/dL) 31 L Cholesterol/HDL Ratio (0.00 - 4.88 %) 4 Vital Signs Date Time Temp Pulse Resp B/P B/P Pulse O2 O2 Flow FiO2 Mean Ox Delivery Rate 05/04 0842 86 144/94 05/04 0748 97.0 86 144/94 05/03 2134 98.1 85 16 140/98 05/033 98.1 85 16 140/98 05/038 98.1 85 140/98 05/03 1616 80 135/85 MSE General appearance: fair hygiene and grooming; Attitude: cooperative; Eye contact: appropriate; Movement: no psychomotor agitation or slowing; Speech: nl fluency, nl rate/rhythm, nl volume, nl prosody; Mood: "fine, better today" Affect: irritable, flat, appropriate, constricted, non-labile, congruent; Thought process: linear and goal-directed; Thought content: denied SI or HI, no paranoid ideation; Perception: denied hallucinations- auditory, visual, does not appear to be responding to internal stimuli; I/J: limited A/P: Pt with MDD with previous SI and FTT now improving. -Continue current medication regimen -May need medicine input given hyperlipidemia and already on statin -Encourage integration into the milieu
[2017-05-04 15:38] VITALS: BP 129/82
[2017-05-04 20:09] VITALS: BP 139/92
[2017-05-04 21:33] VITALS: BP 133/71
[2017-05-05 07:39] VITALS: BP 140/95
[2017-05-05 12:19] VITALS: BP 145/86
--- NOTE | 2017-05-05 13:45 | CP SOUTH PROGRESS NOTE PSYCH ---
Psych (Inpt) Progress Note Progress Note Vital Signs Date Time Temp Pulse Resp B/P O2 O2 Flow FiO2 Delivery Rate 05/05 1219 81 145/86 05/05 0831 96.8 82 16 140/95 05/05 0739 96.8 82 140/95 05/04 2154 74 133/71 05/04 2154 74 133/71 05/043 74 133/71 05/04 2008 97.9 93 139/92 05/04 1538 85 129/82 Mental Status Examination: Von reported that he did not sleep well last night denied having thoughts of suicide today. Von was resting in bed but arousable. He was cooperative. He was more engaged, no abnormal movements; Von reported that his mood is still depressed coherent and his thoughts were logical. Von denied hallucinations today. There were no delusions Assessment: Von is a 66-year-old single White male who was admitted to the inpatient psychiatric unit on April 15, 2017 for-reportedly- making suicidal statements since Juan Manuel (patient --reportedly- stated that he was going to kill self so that he can be with his brother who suddenly in May 2016). Myke showed significant improvement so far we were planning to discharge him today he seems to think that he needs a few more days and he seemed resourceful enough to claim that he was suicidal today. Diagnoses: Major Depressive disorder, severe with psychosis/ Catatonia Rule out schizoaffective disorder CAD, history Angina & stenting Plan: Add PRN Alprazolam for insomnia Continue sertraline 200 mg daily Safety checks q15min checks, Continue Zyprexa 10 mg QHS Continue Carvedilol 25 mg BID Nursing: assessments, vitals, and patient education Psychiatrist: evaluate mental status and monitor medications daily
--- NOTE | 2017-05-05 15:41 | SOCIAL WORKER PROG NOTE PSYCH ---
Social Work Progress Note Progress Note 10:50am This staff writer met with patient. Upon encouragement, patient agreed to meet in the kitchen. He reported SI with a plan to jump out of his 3 story window at the assisted living facility. Patient stated that he feels safe on this unit. Patient stated that he has been unable to sleep well and asked nursing for medication for sleep, however, was told that it was too late. Patient stated that he would not wait so long if he feels that he needs to ask nursing for sleeping medication tonight. Patient denied HI/AH/VH. He continues to state that he believes that he will be going to hell, and feels this is so due to believing that suicide is a sin. Patient discussed ongoing grief related to the loss of his brother last year. Patient was not agreeable to meeting with a therapist regarding his grief. Patient was agreeable to scheduling another family meeting with his cousin as the last one had been cancelled. He stated that he would attend this meeting. Patient requested to end the current meeting with this social work instructor as he would like to return to his room to rest. This staff writer spoke with Cinthya ([phone]) and provided clinical requesting continued authorization for inpatient stay. Cinthya reviewed the clinical with her doctor and informed this staff writer that a peer to peer would need to be scheduled. The peer to peer was scheduled for 10:30am on 05/06/17. Dr. Tapia will call the [facility], [place] and ask to speak with Dr. Dixon for the review. A 10 minute window is provided as well as the number for Dr. Tapia, if needed: [phone].
[2017-05-05 15:53] VITALS: BP 139/73
[2017-05-05 19:53] VITALS: BP 124/69
[2017-05-06 08:01] VITALS: BP 146/84
[2017-05-06 12:24] VITALS: BP 131/71
--- NOTE | 2017-05-06 13:36 | CP SOUTH PROGRESS NOTE PSYCH ---
Psych (Inpt) Progress Note Progress Note Vital Signs Date Time Temp Pulse Resp B/P 05/06 1224 83 131/71 05/06 1023 97.8 93 16 146/84 05/06 0801 97.8 93 146/84 05/05 2212 97.9 88 16 124/69 05/05 221 97.9 88 16 Mental Status Examination: Von first said yes to lithium then later refused it when I prescribed it. reported that he did not sleep well last night. He denied having thoughts of suicide today but was reporting them over the weekend and yesterday. Von was resting in bed but arousable. He was cooperative. He was more engaged, no abnormal movements; Von reported that his mood is still depressed coherent and his thoughts were logical. Von denied hallucinations today. There were no delusions Risk Assessment: Risk factors: 1) Depressed mood 2) Recent suicide stateemnts 3) Single, White, Male, over 55 years old protective factors/risk-mitigating factors: 1) The patient does not have a terminal illness 2) He is not in chronic severe pain 3) Does not have access to guns 4) Stable housing/not homeless Plan: Continue Alprazolam for insomnia Continue sertraline 200 mg daily Safety checks q15min checks, Reduce Zyprexa to 7.5 mgQHS Add Melbeta 150 mg BID (he later refused to take it) Continue Carvedilol 25 mg BID Nursing: assessments, vitals, and patient education Psychiatrist: evaluate mental status and monitor medications daily
[2017-05-06 15:32] VITALS: BP 137/98
--- NOTE | 2017-05-06 18:07 | SOCIAL WORKER PROG NOTE PSYCH ---
Social Work Progress Note Progress Note 4:12pm This junior underwriter met with patient. He denied SI. He was agreeable to a family meeting with his cousin, Cortez, and stated that he would be willing to attend if one were scheduled. Patient reported improvement with mood and would like to return to [facility] upon discharge. 5:54pm This junior underwriter spoke with Cortez by phone and a family meeting has been scheduled for 05/07/17 at 2pm.
[2017-05-06 19:55] VITALS: BP 163/92
[2017-05-07 07:49] VITALS: BP 131/70
--- NOTE | 2017-05-07 10:38 | CP SOUTH PROGRESS NOTE PSYCH ---
Psych (Inpt) Progress Note Progress Note Vital Signs Date Time Temp Pulse B/P Pulse O2 O2 Flow FiO2 Ox Delivery Rate 05/07 0932 83 131/70 05/07 0749 97.5 83 131/70 05/06 2123 84 163/92 05/06 2123 84 163/92 05/06 1954 97.8 84 163/92 05/06 1532 80 137/98 05/06 1224 83 131/71 Current Medications Start time Medication Dose Stop Time Acetaminophen 650 MG 04/15 141 Al Hydroxide/Mg 30 ML 04/15 1415 Hydroxide Alprazolam 1 MG 05/06 2200 05/13 215 Alprazolam 0.75 MG 05/05 1345 05/12 134 Atorvastatin Calcium 40 MG 04/13 2199 Bethanechol Chloride 25 MG 05/06 1041 Bethanechol Chloride 25 MG 04/13 2199 Carvedilol 25 MG 04/29 220 Guaifenesin/ 10 ML 04/29 1100 Dextromethorphan Haloperidol 3 MG 04/15 141 [place] Carbonate 150 MG 05/06 1100 Magnesium Hydroxide 30 ML 04/15 141 Olanzapine 5 MG 05/07 2199 Olanzapine 7.5 MG 05/06 220 Olanzapine 10 MG 04/28 220 Ondansetron HCl 4 MG 04/29 1115 Sertraline HCl 200 MG 05/06 1000 Tamsulosin HCl 0.8 MG 04/13 2199 Nursing staff, social work staff, the group therapist and activity therapists, and psychiatrist discussed the patient's progress and treatment plan update mental Status Examination: Von continues to refuse lithium Today, he says hes ready to leave tomorrow (!!!) Lately, he has been very variable and unreliable in his report of thoughts of suicide He denied having thoughts of suicide today to me (but that has been changing daily and depending whom he talks to from staff) continues to spend too much time in his bed marginally cooperative, un-engaged, no abnormal movements; Von reported that his mood is still depressed. he was coherent and his thoughts were logical. Von denied hallucinations today. There were no delusions Risk Assessment update: Risk Factors for Suicide: 1) Depressed mood. 2) Recent suicide stateemnts. 3) Single, White, Male, over 55 years old. Protective factors/risk-mitigating factors: 1) The patient does not have a terminal illness 2) He is not in chronic severe pain 3) Does not have access to guns 4) Stable housing/not homeless 5) Does not abuse alcohol or drugs 6) No command hallucinations There is a motive to continue to claim thoughts of suicide (wanting to be taken care of/he perceives and receives more care and attention here [facility]/ Plan: D/C [place] as he has no intention of taking it Continue Alprazolam for insomnia Continue sertraline 200 mg daily Reduce Zyprexa to 5 mgQHS as he is still sleeping too much Continue Carvedilol 25 mg BID Continue Tamsulosin 0.8 mg at bedtime Psychiatrist: evaluate mental status and monitor medications daily
--- NOTE | 2017-05-07 15:18 | SOCIAL WORKER PROG NOTE PSYCH ---
Social Work Progress Note Progress Note 2:12pm Dr. Dixon and this internal communications writer met with patient and his cousin, Cortez. Patient appeared agitated during the meeting, and responded to most questions with "No comment." He also accused Dr. Dixon of "putting words in my mouth" when Dr. Dixon asked about symptoms, specificaly patient's previous reports of AH by God. Discharge was also discussed, identifying tomorrow as the anticipated discharge date. Cortez stated that he could provide transportation to [facility] around 4pm. When asked about safety concerns, patient stated, "My peck is between me and my God." Patient requested to return to his room and rest and gave permission for the meeting with Cortez to continue. Cortez discussed observations made, expecially of patient's decline around [place]/holidays. Outpatient treatment was discussed (i.e. IOP, OP, in home psychotherapy services ). This internal communications writer will explore these services and what is available as well as whether patient can be transported by [facility] to outpatient or IOP services.
[2017-05-07 16:16] VITALS: BP 136/91
[2017-05-07 19:51] VITALS: BP 156/98
[2017-05-08 07:54] VITALS: BP 137/95
[2017-05-08 11:55] VITALS: BP 132/80
--- NOTE | 2017-05-08 13:35 | DISCHARGE SUMMARY REPORT-PSYCH ---
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) Hospital Course Significant Lab Findings: Lab Cholesterol 121 MG/DL 05/03/17 0710 HDL Cholesterol 31 mg/dL L 05/03/17 0710 Hemoglobin A1c 5.7 % 05/03/17 0710 LDL Cholesterol, Calc 58 mg/dL L 05/03/17 0710 Triglycerides 161 mg/dL H 05/03/17 0710 Hct 31.4 % L 04/13/17 1715 Hgb 10.0 G/DL L 04/13/17 1715 Course Complications: The patient did not have any complications while he was on the inpatient psychiatric unit Consultations: The patient had a history and physical examination done when he was on the inpatient psychiatric unit Allergies: Coded Allergies: NO KNOWN ALLERGIES (NONE 04/15/17) Hospital Course/TX Response: The patient ended up staying at a relatively long and stay. For the most part Mr. Desai spent his time in bed most of the time resting not sleeping. The first week the patient was not attending to his the personal hygiene, he required a lot of prompting. The patient showed very gradual and slow improvement. While he was on the inpatient psychiatric unit, and attempt was made at augmenting his antidepressant with lithium, he was able to reach a blood level of 0.7 mmol per liter however the patient did not want to continue the lithium trial, and he also did not show any signs of improvement with augmentation as well. The patient's Zoloft dose was maximized to 200 mg a day while he was on the inpatient unit. The patient's Abilify, which he came with, was gradually cross titrated with Zyprexa There was some minor signs of improvement such as the patient having good breakfast in the kitchen with other patients and not lying in bed and asking for it to be appropriate to his room. Also the patient's catatonia disappeared completely while he was on the inpatient psychiatric unit after about 5 days to a week of his admission The patient was approached with the idea of ECT treatment for his depression and he adamantly refused to consider it The patient's also had the very short augmentation trial with a stimulant, however since he reported some psychotic symptoms to the psychotherapist social worker, I decided to discontinue the stimulant N (although I am not 100% sure whether there was the cause of relationship between the two) Because the latter part of his stay in the hospital, the patient showed some resistance to going back to the assisted living facility and his job his discharge was scheduled at least twice and he thwarted that by insisting that he is suicidal and that he does not want to leave. I did obtain a second opinion from Bola Thomas MD, for a second risk assessment since there is a general sense among the team that the patient is just making the threats in order to control the discharge. After the second opinion was done by Bola Thomas MD, the patient came back to me and apologized saying that he was not suicidal but that he is in fact was making the statements in order not to be discharged. He also said the same thing to another nursing staff member and to one of the nurses aides. The split proximal to the assisted living and came and met with the patient. For an extra layer safeties [facility] staff decided to institute sitter for the patient when he "goes back to to the assisted living facility. The patient was upset about the cost that he will incur because of that. And he reverted back to saying that he was suicidal and that he does not want to go because he is not in a play for that. Given the fact that this would've been his fourth a scheduled discharge in the past 2 weeks, I went ahead with the discharge despite his objections and despite his threats. I believe that the patient's risk, with a reasonable degree of medical certainty , was low. And that his threats where I do threats to thwart another scheduled discharge). Please refer to the risk assessment notes from the past few days including the second opinion by Bola Thomas MD) The patient's condition at the time of discharge: Nursing staff, social work staff, the group therapist and activity therapists, and psychiatrist discussed the patient's progress and treatment plan update mental Status Examination: Von this morning told me that he was having thoughts of suicide, so I asked Dr. Thomas for a second opinion since I had a suspicion that the patient is trying to thwart discharge plans as he did twice before After he met with Dr. Thomas he sought me out and he said he wanted to apologise because he was saying he was suicidal to avert being discharge and that --as we suspected-- he was just saying it (feigning) but he had no intention of suicide Von has been very variable and unreliable in his account of thoughts of suicide and hallucinations (e.g. told CRYPTOGRAPHY TEACHER on Friday that he was hearing the voice of God telling him he is going to Hell, when I asked him about that he denied it) He continues to spend too much time in his bed marginally cooperative, un-engaged, no abnormal movements; Von reported that his mood is still depressed. he was coherent and his thoughts were logical. Von denied hallucinations today. There were no delusions After meeting with Dr. Thomas, he came back to tell him he has no thoughts of suicide, and apologized for twisting the truth/lying about it earlir (??) Risk Assessment update: The Following Risk Factors for Suicide were identified: 1) Depressed mood. 2) Recent suicide stateemnts. 3) Single, White, Male, over 55 years old. The following Protective factors/risk-mitigating factors were identified: 1) The patient does not have a terminal illness 2) He is not in chronic severe pain 3) Does not have access to guns 4) Stable housing/not homeless 5) Does not abuse alcohol or drugs 6) No command hallucinations 7) After second opinion By. Dr. Thomas, patient came back to say he was not suicidal and was trying to stay longer (The motive seemed to bewanting to be taken care of/he perceives and receives more care and attention here than at the [facility] facility) Plan: will proceed with Discharge today to [facility] Discharge HBIPS - Tobacco Use Treatment Offered Post DC Medications Offered: Not Applicable Post DC Tobacco Treatment Plan: Not Applicable - EtOH/Drug Use D/O Treatment Offered Post DC Medications Offered: NA-No EtOH/Drug Use D/O Post DC EtOH/SubAbuse [place] Plan: NA-No EtOH/Drug Use D/O Metabolic Screening - Screen if on a Neuroleptic Medication - Metabolic screening should include: - Blood Pressure, BMI, Glucose or Hgb A1c, & a - Lipid profile from within the past 365 days. Metabolic Screening Patient on a neuroleptic(s) . Enter below results for Hemoglobin A1C, and lipid panel if obtained during the last 365 days. BMI: 23.500 Blood Pressure: 105/50 Laboratory Results From [facility] (If applicable): Lab Cholesterol 121 MG/DL 05/03/17 0710 Cholesterol/HDL Ratio 4 % 05/03/17 0710 HDL Cholesterol 31 mg/dL L 05/03/17 0710 Hemoglobin A1c 5.7 % 05/03/17 0710 LDL Cholesterol, Calc 58 mg/dL L 05/03/17 0710 Triglycerides 161 mg/dL H 05/03/17 0710 Discharge Instructions General Discharge Information Multiple Neuroleptics: ([X]) Not Applicable Discharge Diet Regular Discharge Activity As Tolerated DC [facility] Referrals Ordered Referrals Provider Referral 05/09/17 For Groups: [[facility]] [facility] [address] [place] [address] A psychiatric provider (Dr. Talbert) for medication management will be scheduled by [facility]. He will also be provided with one-to-one care which has been arranged by [facility] through [facility]. Provider Referral For Groups: [[facility]] [facility], [facility] Carie Contreras [facility] [phone] Appointment date and time will be provided once scheduled. Prescriptions Stop taking the following medications: Ticagrelor (Brilinta) 90 MG TABLET ORAL TWICE DAILY Qty = 180 Amlodipine Besylate (Amlodipine Besylate) 10 MG TABLET ORAL DAILY Qty = 30 Sertraline HCl (Sertraline HCl) 25 MG TABLET ORAL 1000 Qty = 42 Trazodone HCl (Trazodone HCl) 50 MG TABLET ORAL AT BEDTIME NEEDED as needed for sleep induction/insomnia Qty = 14 Aripiprazole (Abilify) 5 MG TABLET ORAL EVERY 4 HOURS NEEDED as needed for irritable/irrational/labile/DFA Qty = 14 Aripiprazole (Abilify) 10 MG TABLET ORAL 2200 Qty = 14 Continue taking these medications: Carvedilol (Carvedilol) 25 MG TABLET 1 Tablet ORAL TWICE DAILY Qty = 60 Comments: Last Taken:05/08/17 Time:0 Nitroglycerin (Nitroglycerin) 0.4 MG TAB.SUBL 1 Tablet SUBLINGUAL As Directed as needed for CHEST PAIN Qty = 100 Instructions: 1st sign of attack; may repeat every 5 minutes until relief; if pain persists after 3 tablets in 15 minutes, prompt medical att Comments: Last Taken:NOT USED IN THE HOSPITAL Time: Aspirin (Lo-Dose Aspirin EC) 81 MG TABLET.DR 1 Tablet ORAL DAILY Qty = 30 Comments: Last Taken:NOT USED IN THE HOSPITAL Time: Atorvastatin Calcium (Atorvastatin Calcium) 40 MG TABLET 1 Tablet ORAL DAILY Qty = 30 Comments: Last Taken:05/08/17 Time:2130 Lorazepam (Lorazepam) 1 MG TABLET 1 Milligram ORAL 2200 Qty = 14 Comments: Last Taken:TO START TONIGHT..PT USED XANAX 1MG NIGHTLY IN THE HOSPITAL Time:LAST DOSE OF XANAX 0 ON 05/08/17 Start taking the following new medications: Bethanechol Chloride (Bethanechol Chloride) 25 MG TABLET 25 Milligram ORAL .[Q0800, Q2000] Qty = 30 No Refills Comments: Last Taken:05/09/17 Time:1130 Tamsulosin HCl (Flomax) 0.4 MG CAP.ER.24H 0.8 Milligram ORAL 2200 Qty = 15 No Refills Comments: Last Taken:05/08/17 Time:2130 Sertraline HCl (Zoloft) 100 MG TABLET 200 Milligram ORAL DAILY Qty = 30 No Refills Comments: Last Taken:05/09/17 Time:1030 Olanzapine (Olanzapine) 5 MG TABLET 5 Milligram ORAL AT BEDTIME Qty = 15 No Refills Comments: Last Taken:05/08/17 Time:2130 Studies Pending at Discharge None Copies To: [facility]
--- NOTE | 2017-05-08 13:37 | Patient Discharge Instructions ---
Psych Discharge Inst General Discharge Information Reason for Admission: thoughts of suicide Psy Discharge Primary Diag+ MDD Summary Tests/Major Procedures Lab HDL Cholesterol 31 mg/dL L 05/03/17 0710 LDL Cholesterol, Calc 58 mg/dL L 05/03/17 0710 Triglycerides 161 mg/dL H 05/03/17 0710 Hct 31.4 % L 04/13/17 1715 Hgb 10.0 G/DL L 04/13/17 1715 Studies Pending at DC: None Patient Instructions Contact Information Your Psychiatrist on [facility] was Everett Dixon MD * If you are experiencing an emergency related to this hospitalization, please call [phone] to contact the treating psychiatrist or the psychiatrist-on- call. * To Request a copy of your medical records, please contact the Medical Records Department at [phone]. * To request results of studies pending at the time of discharge, please call [phone]. * Continue your Medications until directed to stop by your Healthcare provider. General Medication Information Please continue to take your new medications and your continued home medications , unless otherwise indicated on your discharge medication list, or unless directed by your MD or INDUSTRIAL TRAINING SPECIALIST to stop them. Special Instructions Diet Regular Activity As Tolerated - Tobacco Use Treatment Offered Post DC Medications Offered: Not Applicable Post DC Tobacco Treatment Plan: Not Applicable - EtOH/Drug Use D/O Treatment Offered Post DC Medications Offered: NA-No EtOH/Drug Use D/O Post DC EtOH/SubAbuse TX Plan: NA-No EtOH/Drug Use D/O Metabolic Screening Patient on a neuroleptic(s) . Enter below results for Hemoglobin A1C, and lipid panel if obtained during the last 365 days. BMI: 23.500 Blood Pressure: 132/80 Laboratory Results From [facility] (If applicable): Lab Cholesterol 121 MG/DL 05/03/17 0710 Cholesterol/HDL Ratio 4 % 05/03/17 0710 HDL Cholesterol 31 mg/dL L 05/03/17 0710 Hemoglobin A1c 5.7 % 05/03/17 0710 LDL Cholesterol, Calc 58 mg/dL L 05/03/17 0710 Triglycerides 161 mg/dL H 05/03/17 0710 Advance Directives Does the Patient have Medical Advance Directives Yes/Copy not provided Does Pt have Psychiatric Advance Directives? Yes/Copy not provided Does Patient have a Designated Surrogate Decision Maker: Yes Information About Psychiatric Advance Directives Provided? Unable to Comprehend Discharge Plan Post Hospital Treatment Plan: [facility]
[2017-05-08] MEDS ORDERED: OLANZAPINE5 M2 PO (13:46)
[2017-05-08] MEDS ORDERED: BETHANECHOL CHL25 M1 PO (13:46)
[2017-05-08] MEDS ORDERED: ZOLOFT100 M1 PO (13:46)
[2017-05-08] MEDS ORDERED: FLOMAX0.4 M1 PO (13:46)
--- NOTE | 2017-05-08 14:00 | CP SOUTH PROGRESS NOTE PSYCH ---
Psych (Inpt) Progress Note Progress Note Psychiatrist's second opinion: I was asked to see this patient for a second opinion regarding safety for discharge. The patient is a 66-year-old single, white male with major depression, rule out schizoaffective disorder, who was admitted on 04/15/17. He has been reporting suicidal ideation, particularly as discharge approaches. I have heard about his case daily in team meeting. Medication list reviewed. Patient seen at 10:46 AM. The patient has no children. He has a cousin, Dg, who lives in [place]. Patient reports that he has 2 homes, one in [place] and one in [place], and he lives at an assisted living facility, [facility]. The patient is ambulatory, currently sitting in a chair in no acute distress. He is dressed in blue paper scrubs. He appears to have tardive dyskinesia at his mouth. He is calm, polite and cooperative. There is no psychomotor agitation or retardation. Speech is normal in volume, rate and tone. Affect is calm and blunted. He asked me directly if I would please be a speaker at his . He stated "I'll be gone by Friday. When I get back to [facility], I' ll jump from my room." States he misses his brother and he cannot live without him. Reports he likes [facility]. Reports that it is expensive there at $7000 a month. Reports brother a year ago at age 61 from an [place]. Patient states he can't go on anymore, "it's too rough." States he attempted suicide twice in the past, once by jumping from a wall and the other time by slitting his wrist. I informed the patient that we cannot consider releasing him if he is suicidal, so we will need to pursue a state hospital. He then changed his story dramatically, stating he is not suicidal and does not want to go to a state hospital. I advised him to come up with a safety plan for home, including [id number] companions, or we will plan to file for probate commitment to a state hospital. IMPRESSION: I find the patient to be somewhat dramatic. He has not demonstrated any suicidal behavior here according nursing staff. I do not find him to be a high suicide risk but his statements are concerning, so we should make our best effort to create a safe plan for discharge. In the alternative, we will consider pursuit of a bed at a [facility] psychiatric facility. Case has been discussed with An Izquierdo LCSW and with Everett Dixon MD.
--- NOTE | 2017-05-08 16:35 | SOCIAL WORKER PROG NOTE PSYCH ---
Social Work Progress Note Progress Note 10:55am This abstract writer met with patient and Dr. Thomas to discuss discharge plans: return to [facility], "around the clock tiller worker." This abstract writer met with patient following the meeting with Dr. Thomas. Patient identified a safety plan in which he agreed to immediately inform nursing/staff at [facility] about any safety concerns. Patient was agreeable to attending IOP or meeting with a therapist at [facility] should transportation not be available. Patient informed this abstract writer that he had not been suicidal and was only reporting SI due to wanting to stay at [facility] as he didn't want to "stay at an old person's home." Patient stated that he was not willing to go to a [facility] hospital and would like to return to [facility]. Patient stated that he was not willing to have an "around the clock tiller worker." 11:29am This abstract writer spoke with Arlen at [facility]. She was informed of the patient's reported SI and his later statement that he did not have SI and only stated so in order to stay at [facility]. She was informed that the patient refused a "around the clock tiller worker" but would like to return to [facility]. Arlen stated that [facility] would likely want to visit him before he returns and this abstract writer would be contacted to schedule this. 2:29pm Ekaterina, the vice president of product marketing at [facility], contacted this abstract writer by phone and stated that she would be able to have a nurse visit the patient tonight at 6pm. She requested that the discharge is delayed until tomorrow in order to allow this visit to occur and to ensure that all discharge plans are finalized. She stated that [facility] would be unable to transport him to outpatient appointments, however, treatment could occur at [facility]. Ekaterina contacted this abstract writer later in the afternoon to inform that a nurse would not be visiting him tonight and would not need to visit him prior to discharge. She requested that a W10 and discharge papers are faxed to [facility] upon discharge. She stated that the patient will be treated by the psychiatrist, Dr. Bustillos, at [facility]. Ekaterina further informed this abstract writer that the patient would be required to have one-to-one care (through "[facility]") which has been scheduled to start at 12pm tomorrow, upon is arrival. Furthermore, the one -to-one care will assist the patient with ADL's. This abstract writer spoke with patient's cousin, Cortez, regarding the anticipated discharge for tomorrow. Patient was informed of the discharge plan including the one to one, psychiatrist and this abstract writer's attempt to reach [facility] for the referral.
[2017-05-08 16:49] VITALS: BP 142/83
[2017-05-08 17:53] VITALS: BP 122/78
[2017-05-08 19:00] VITALS: BP 122/78
[2017-05-08 21:28] VITALS: BP 137/79
--- NOTE | 2017-05-09 08:27 | CP SOUTH PROGRESS NOTE PSYCH ---
Psych (Inpt) Progress Note Progress Note Vital Signs Date Time Temp Pulse Resp B/P 05/08 2127 88 137/79 05/088 88 137/79 05/08 2127 98.2 88 137/79 05/08 1900 83 20 122/78 05/08 1753 83 122/78 05/08 1649 84 142/83 05/08 1155 87 132/80 05/08 1002 85 137/95 Nursing staff, social work staff, the group therapist and activity therapists, and psychiatrist discussed the patient's progress and treatment plan update Mental Status Examination: Von was adament againt having a sitter/constant observation at [facility] "I am not going back there, it is going to cost too much." the patient is trying again to thwart discharge plan (for the 4th time now) by stating that he is having thoughts of suicide again s as he did twice before Von's report is becoming extremely unreliable (and very variable as well) He seemed to have turned more uncooperative, and more irritable with passive hostility He was un-engaged since admission but has lately become more assertive and entitled and showing a hostile edge He is coherent and his thoughts are organised (self-advocating and determined when he chooses to be). Von denied hallucinations today. There were no delusions during conversation. Risk Assessment Update: Following are my reasons for discharging Von to [facility] despite the following identified Risk Factors for Suicide: 1) his statements about suicide and 2) History of Major Depressive Disorder and 3) being a Single, White, Male, over 55 years old. The following Protective factors/risk-mitigating factors were identified: 1) A second opinion was obtained , please see Dr. Thomas's second opinion dated 2) [facility] intends to implement close observation until such point that the patient has had a string of days of not being or threatening suicde 3) Does not have access to guns 4) Stable housing/not homeless 5) Does not abuse alcohol or drugs 6) No command hallucinations 7) The patient does not have a terminal illness After second opinion By. Dr. Thomas, patient came back to say he was not suicidal and was trying to stay longer (The motive seemed to bewanting to be taken care of/he perceives and receives more care and attention here than at the [facility]) 8) He is not in chronic severe pain Plan: will proceed with Discharge today to [facility]
[2017-05-09 10:27] VITALS: BP 105/50
--- NOTE | 2017-05-09 13:51 | SOCIAL WORKER PROG NOTE PSYCH ---
Social Work Progress Note Progress Note 1:51pm This mortgage underwriter left with discharge clinical for Cinthya at [phone].
--- NOTE | 2017-05-09 14:46 | SOCIAL WORKER PROG NOTE PSYCH ---
Social Work Progress Note Progress Note Referral made earlier in day to [facility]. Discussed referral with ELFEGO LillyW she was going to look into insurance. Faxed referral and clinical. LAURA signed.
--- NOTE | 2017-05-09 17:04 | SOCIAL WORKER PROG NOTE PSYCH ---
Social Work Progress Note Progress Note 10:13am This music writer met with patient. Patient reported SI and stated that he was reporting SI as he did not want to leave [facility] and be on a 1:1 at [facility]. Patient stated that he wants his privacy, however, followed this up by stating that he would like to remain on [facility] with a 1:1. Patient was encouraged to speak with Dr. Dixon about his concerns. This music writer followed up with Dr. Dixon, who stated that the patient had discussed the above with him and that the discharge to [facility] would proceed. This music writer spoke with patient's cousin, Cortez, by phone to confirm that the patient is discharging today. Cortez stated that he anticipates Medicare to become active next month (though unsure of the date). He was informed of the efforts regarding the referral to [facility]. 11:29am This music writer spoke with Dana, nurse at [facility], who was provided with the [facility] phone number. She was informed that an appointment has not yet been scheduled as their tin container straightener is attempting to make contact with the insurance company regarding a single case agreement due to the program not currently accepting the patient's insurance. She stated that she would need to review this with the nurse manager money as the appointment has not yet been scheduled. Per Farzaneh Kilpatrick ([facility] RN), Dana returned the call stating that the patient would be accepted to return despite the pending appointment. 11:47am This music writer spoke with Carie Contreras ([facility], ) who stated that she is waiting to hear back from the patient's insurance company regarding the single case agreement. In the event that it is not approved, the patient may utilize out of network benefits or wait until Medicare becomes active. She asked that this music writer inform the patient of these options and that she is willing to schedule an appointment for him if he would like. 12:10pm This music writer spoke with the patient and Ray (upon his arrival) about the above options regarding treatment with [facility]. Patient made the decision that he wanted to schedule an appointment with [facility] and requested an appointment on Friday. They were both provided with Carie Contreras's phone for [facility]. Patient provided his cell number ([phone]) and requested that this music writer contact him, in addition to Cortez and Bryon Chirinos, when the appointment is provided. Patient appeared interested in meeting with the [facility] therapist. Patient and Ray were informed of the discharge plans in which Bryon Chirinos will coordinate an appointment with the psychiatrist, Dr. Talbert, as well as the one-to-one care through [facility]. This music writer left for Carie Cotnreras informing her that the patient would like an appointment with their [facility] program. A call back number was provided. 12:25pm This music writer contacted Bryon Chirinos to inform of the pending appointment with [facility]. Faxed Referral(s) 1 Referred To: Bryon Chirinos Transition of Care Documents sent: Health Summary, W10 Faxed to: Bryon Chirinos Fax #: [phone] Faxed by: Gisele Izquierdo LCSW Date faxed: 05/09/17 Time Faxed: [phone] Faxed Referral(s) 2 Referred To: [facility] Transition of Care Documents sent: Health Summary Faxed to: [facility] Fax #: [phone] Faxed by: Gisele TELLESW Date faxed: 05/09/17 Time Faxed: [phone]
== END 2017-05-09 13:05 | DRG 881 ==
LOC: ERH 16:21 → CP SOUTH 04-15 11:05 → ERHI 04-15 11:05 → ENTRNSPT 04-15 12:40 → EDTRNSPTSTS 04-15 12:41 → EDTRNSPT 04-15 12:41 → CP SOUTH 04-15 12:50 → CMPTRNSPT 04-15 12:51 → CP SOUTH 04-17 19:53
PROVIDERS: Physician Assistant; Psychiatry & Neurology Psychiatry
DX: F32.9 Major depressive disorder, single episode, unspecified (principal); F60.9 Personality disorder, unspecified
CPT/HCPCS: 36415; 80307; 81003; 82436; G0463; G0480; J0401; J1630; J3101

== ENCOUNTER 2017-09-09 14:43 | Inpatient (IN) | payer OTHER, MEDICARE ==
[~2017-09-09] VITALS: Ht 180.3 cm; Wt 83.0 kg
[~2017-09-09 14:43] MED LIST changes: +BETHANECHOL CHL25 M1 PO; +FLOMAX0.4 M1 PO; +OLANZAPINE5 M2 PO; +ZOLOFT100 M1 PO
--- NOTE | 2017-09-09 15:08 | ED DYSPNEA/ASTHMA COMPLAINT ---
History of Present Illness General Chief Complaint: Dyspnea (COPD, CHF, Other) Stated Complaint: DIFFICULTY BREATHING Source: patient, old records Exam Limitations: no limitations Vital Signs & Intake/Output Vital Signs & Intake/Output Vital Signs Date Time Temp Pulse Resp B/P B/P Pulse O2 O2 Flow FiO2 Mean Ox Delivery Rate 09/09 1615 98 Nasal 3.0L Cannula 09/09 1501 93 Nasal 2.0L Cannula 09/09 1452 97.8 96 22 133/86 92 Nasal 3.0L Cannula Allergies Coded Allergies: NO KNOWN ALLERGIES (NONE 04/15/17) Reconcile Medications Aspirin (Lo-Dose Aspirin EC) 81 MG TABLET.DR 1 TAB PO DAILY HEART HEALTH ( Reported) Atorvastatin Calcium 40 MG TABLET 1 TAB PO DAILY CHOLESTEROL (Reported) Bethanechol Chloride 25 MG TABLET 25 MG PO .[Q0800, Q2000] urine flow Carvedilol 25 MG TABLET 1 TAB PO BID HEART (Reported) Lorazepam 1 MG TABLET 1 MG PO 2200 reduce anxiety at bedtime Nitroglycerin 0.4 MG TAB.SUBL 1 TAB SL AD PRN CHEST PAIN (Reported) 1st sign of attack; may repeat every 5 minutes until relief; if pain persists after 3 tablets in 15 minutes, prompt medical att Olanzapine 5 MG TABLET 5 MG PO AT BEDTIME thought disorder Sertraline HCl (Zoloft) 100 MG TABLET 200 MG PO DAILY depression and anxiety Tamsulosin HCl (Flomax) 0.4 MG CAP.ER.24H 0.8 MG PO 2200 urine flow Triage Note: BIBA FROM ASSISTED LIVING WITH C/O SOB AFTER EATING LUNCH TODAY. PER EMS "THE STAFF SAID HE WAS 84% INITIALLY". MED WITH SURINDER WATKINSPT ARRIVES TO ED AWAKE, ALERT, ORIENTED "I FEEL BETTER AFTER THE TREATMENT". O2 SATS 90-91% ON ROOM AIR, PLACED ON 2L NC, CURRENTLY 93-94%. SPEAKING IN FULL SENTENCES. Triage Nurses Notes Reviewed? yes Onset: Abrupt Duration: hour(s):, constant Timing: recent history Severity: moderate, severe HPI: 67-year-old male comes into the emergency room from assisted living facility for shortness of breath. Symptoms began around 1 PM. The patient was walking down some steps and felt profoundly short of breath. Some associated wheezing. Denies any chest pain. Denies any fever chills cough. Patient was brought in by ambulance. Apparently his oxygen saturation was 82% facility and EMS reports it was 88% upon arrival. He was given a DuoNeb en route. Denies any chest pain. Denies any vomiting. History of congestive heart failure and coronary disease. Comes in for further evaluation by ambulance. (Héctor Jamil) Past History Travel History Traveled to [place] past 21 day No Medical History Any Pertinent Medical History? 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 No (Héctor Jamil) Review of Systems Review of Systems Constitutional: Reports: no symptoms. EENTM: Reports: no symptoms. Respiratory: Reports: see HPI. Cardiovascular: Reports: see HPI. GI: Reports: no symptoms. Genitourinary: Reports: no symptoms. Musculoskeletal: Reports: no symptoms. Skin: Reports: no symptoms. Neurological/Psychological: Reports: no symptoms. Hematologic/Endocrine: Reports: no symptoms. Immunologic/Allergic: Reports: no symptoms. All Other Systems: Reviewed and Negative (Héctor Jamil) Physical Exam Physical Exam General Appearance: well developed/nourished, no apparent distress, alert, awake Head: atraumatic, normal appearance Eyes: Bilateral: normal appearance. Ears, Nose, Throat: normal ENT inspection, hearing grossly normal Neck: normal inspection Respiratory: rhonchi, wheezing, respiratory distress (mild) Cardiovascular: regular rate/rhythm Gastrointestinal: soft Extremities: normal inspection Neurologic/Psych: awake, alert, oriented x 3 Skin: intact, normal color Core Measures ACS in differential dx? Yes CVA/TIA Diagnosis No Sepsis Present: No Sepsis Focused Exam Completed? No (Héctor Jmail) Progress Differential Diagnosis: asthma, AMI, bronchitis, costochondritis, CHF, COPD, musculoskeletal pain, pericarditis, pulmonary embolism, pneumonia, pneumothorax, rib fracture, unstable angina Diagnostic Imaging: Viewed by Me: Radiology Read. Discussed w/RAD: Radiology Read. Radiology Impression: PATIENT: ITZEL GERARD PRESENT AGE: 67 PATIENT ACCOUNT NO: [id number] : 52 LOCATION: [facility] ORDERING PHYSICIAN: Héctor CARLSON SERVICE DATE: 09/09/17-1506 EXAM TYPE: RAD - XRY-PORTABLE CHEST XRAY EXAMINATION: XR PORTABLE CHEST CLINICAL INFORMATION: Shortness of breath COMPARISON: 10/31/2011 TECHNIQUE: Portable frontal view of the chest was obtained. FINDINGS: Slight elevation of the left hemidiaphragm. No consolidation, edema, or effusion. No pneumothorax. The cardiomediastinal silhouette is within normal limits. No acute osseous abnormality. IMPRESSION: Elevated left hemidiaphragm. No consolidation. DICTATED BY: Riky Ramirez MD DATE/TIME DICTATED:09/09/171527 GUARD ENTRANCE REGISTRAR:PADMINI DATE/TIME TRANSCRIBED:09/09/171527 CONFIDENTIAL, DO NOT COPY WITHOUT APPROPRIATE AUTHORIZATION. <Electronically signed in Other Vendor System> SIGNED BY: James MARTIN,Riky 09/09/17 1532 Initial ED EKG: normal sinus rhythm, rate (91) (Alejandro CARLSON,Héctor) Plan of Care: Orders Procedure Date/time Status Heart Healthy Diet 09/10 B Active TROPONIN LEVEL 09/09 1845 Active EKG 09/09 1845 Active Misc Message 09/09 1721 Active ED Holding Orders 09/09 1721 Active Admit to inpatient 09/09 1721 Active Vital Signs 09/09 1721 Active Code Status 09/09 1721 Active TROPONIN LEVEL 09/09 1507 Complete COMPREHENSIVE METABOLIC PANEL 09/09 1507 Complete CBC WITHOUT DIFFERENTIAL 09/09 1507 Complete B-TYPE NATRIURETIC PEP (BNP) 09/09 1507 Complete EKG 09/09 1457 Active Current Medications Sig/Moises Start time Last Medication Dose Stop Time Status Admin Albuterol Sulfate 3 ML ONCE ONE 09/09 1745 UNVr (Proventil) 09/09 1746 Laboratory Tests 09/09/17 1515: Anion Gap 15, Estimated GFR > 60, BUN/Creatinine Ratio 23.8, Glucose 122 H, Calcium 9.3, Total Bilirubin 0.6, AST 35, ALT 31, Alkaline Phosphatase 56, Troponin I < 0.01, [id number]-Womvhssqqqe Pept 326 H, Total Protein 7.8, Albumin 4.4 , Globulin 3.4, Albumin/Globulin Ratio 1.3, CBC w Diff NO MAN DIFF REQ, RBC 6.11 H, MCV 60.6 L, MCH 18.8 L, MCHC 31.0 L, RDW 19.0 H, MPV 8.7, Gran % 64.9, Lymphocytes % 20.0 L, Monocytes % 5.9, Eosinophils % 8.9 H, Basophils % 0.3, Absolute Granulocytes 4.0, Absolute Lymphocytes 1.2, Absolute Monocytes 0.4, Absolute Eosinophils 0.5, Absolute Basophils 0 (Grisel MARTIN,Arias Rothmna) Departure Departure Disposition: STILL A PATIENT Condition: Stable Clinical Impression Primary Impression: Hypoxia Secondary Impressions: Bronchitis Referrals: Patient Has No Primary Care Dr Departure Forms: Customer Survey General Discharge Information Admission Note Spoke With: Deirdre Long MD Documentation of Exam: Documentation of any treatments & extenuating circumstances including Concerns Regarding Discharge (functional status, medication knowledge or non-compliance, living conditions, etc.) that warrant an admission rather than observation: Supplemental oxygen. IV antibiotics. IV steroids. Breathing treatments around -the-clock. Pulmonary consultation. (Héctor Jamil) PA/PLASTIC SHAPER Co-Sign Statement Statement: ED Attending supervision documentation- [X] I saw and evaluated the patient. I have also reviewed all the pertinent lab results and diagnostic results. I agree with the findings and the plan of care as documented in the PA's/PLASTIC SHAPER's documentation. Patient presents for evaluation of shortness of breath. Physical examination reveals scattered end expiratory wheezing but otherwise adequate air entry. [] I have reviewed the ED Record and agree with the PA's/PLASTIC SHAPER's documentation. [] Additions or exceptions (if any) to the PAs/PLASTIC SHAPER's note and plan are summarized below: [] (Grisel MARTIN,Arias Rothman) Critical Care Note Critical Care Note Critical Care Time: non-applicable (Héctor Jamil)
--- NOTE | 2017-09-09 15:32 | RADIOLOGY REPORT ---
EXAMINATION: XR PORTABLE CHEST CLINICAL INFORMATION: Shortness of breath COMPARISON: 10/31/2011 TECHNIQUE: Portable frontal view of the chest was obtained. FINDINGS: Slight elevation of the left hemidiaphragm. No consolidation, edema, or effusion. No pneumothorax. The cardiomediastinal silhouette is within normal limits. No acute osseous abnormality. IMPRESSION: Elevated left hemidiaphragm. No consolidation.
[2017-09-09 15:48] LABS: ABSOLUTE BASOPHIL COUNT 0 /CUMM (0.0-0.2); ABSOLUTE EOSINOPHIL COUNT 0.5 /CUMM (0.0-0.7); ABSOLUTE LYMPH COUNT 1.2 /CUMM (1.2-3.4); ABSOLUTE MONOCYTE COUNT 0.4 /CUMM (0.10-0.60); BASOPHIL % 0.3 % (0.0-2.0); EOSINOPHIL % 8.9 % (0-5); GRANULOCYTE % 64.9 % (42.2-75.2); MEAN CORPUSCULAR HGB 18.8 PG (27.0-31.0); MEAN PLATELET VOLUME 8.7 FL (7.4-10.4); PLATELET COUNT 234 /CUMM (130-400); RED BLOOD CELL CT 6.11 /CUMM (4.70-6.10); WHITE BLOOD CELL COUNT 6.1 /CUMM (4.8-10.8)
[2017-09-09 16:17] LABS: MEAN CORPUSCULAR VOLUME 60.6 FL (80.0-94.0)
--- NOTE | 2017-09-09 18:27 | History & Physical ---
Autumn MARTIN,Samia 09/09/17 1825: General Information and HPI MD Statement: I have seen and personally examined ITZEL GERARD and documented this H&P. The patient is a 67 year old M who presented with a patient stated chief complaint of [SHORTNESS OF BREATH]. Source of Information: patient Exam Limitations: no limitations History of Present Illness: Patient is a 67 YO M with past medical history of CAD status post IA with EF 40- 45%, anxiety/depression, possible overactive bladder presented to [facility] after experiencing profound shortness of breath with audible wheezing while walking back to his room after having lunch. Patient had been experiencing shortness of breath and feeling congested for the past few months. He got admitted to [facility] recently for similar concerns however today he reports its worse. He did report sweating with feeling like passing out due to spasmodic cough. He also reports diarrhea for the past few days, nonbloody. Denies any nausea, vomiting. He does report cough with phlegm production which was clear. He reports unable to sleep due to difficulty with breathing and constant need to breathe by mouth. He denies any fevers, allergies in the past, chest pain. Upon EMS arrival his saturations at [facility] are around 84% improved 88% with supplementation. Received your Duoneb after which his saturations improved to 90-91% on room air. Upon completion patient started desaturating the ER. At baseline able to perform his daily activities walks with a walker. At a slow pace No known drug allergies Medications -- confirmed with rust Amlodipine 10 mg daily Abilify 2 mg daily Aspirin 81 mg chewable daily Atorvastatin 40 mg daily Bethanechol 25 mg 3 times a day Coreg 25 mg twice a day Sertraline in 200 mg daily Tamsulosin 0.8 mg daily Trazodone 100 mg to sleep Not on any inhalers Family history significant for mother with congestive heart failure Never smoked/never took alcohol/never drugs Surgical had 4 stents in the past. Allergies/Medications Allergies: Coded Allergies: NO KNOWN ALLERGIES (NONE 04/15/17) Home Med list Amlodipine Besylate 10 MG TABLET 1 TAB PO DAILY blood pressure (Reported) Aripiprazole (Abilify) 2 MG TABLET 1 TAB PO DAILY depression (Reported) Aspirin (Lo-Dose Aspirin EC) 81 MG TABLET.DR 1 TAB PO DAILY HEART HEALTH ( Reported) Atorvastatin Calcium 40 MG TABLET 1 TAB PO DAILY CHOLESTEROL (Reported) Bethanechol Chloride 25 MG TABLET 1 TAB PO TID urine flow (Reported) Carvedilol 25 MG TABLET 1 TAB PO BID HEART (Reported) Nitroglycerin 0.4 MG TAB.SUBL 1 TAB SL AD PRN CHEST PAIN (Reported) 1st sign of attack; may repeat every 5 minutes until relief; if pain persists after 3 tablets in 15 minutes, prompt medical att Sertraline HCl (Zoloft) 100 MG TABLET 200 MG PO DAILY depression and anxiety Tamsulosin HCl (Flomax) 0.4 MG CAP.ER.24H 0.8 MG PO 2200 urine flow Trazodone HCl 100 MG TABLET 1 TAB PO QPM sleep (Reported) Compliance With Home Meds: GOOD Past History Travel History Traveled to [place] past 21 day No Medical History Neurological: NONE EENT: NONE Cardiovascular: CAD (with stenting procedure), CHF, myocardial infarction, STENTS 4 Respiratory: NONE Gastrointestinal: NONE Hepatic: NONE Renal: NONE Musculoskeletal: NONE Psychiatric: anxiety, bipolar disease (would list as a "rule out"), depression Endocrine: NONE Blood Disorders: NONE Cancer(s): NONE 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 Extended Care Facility Who Do You Live With? self Services at Home: Nursing Smoking Status: Never Smoked ETOH Use: denies use Illicit Drug Use: denies illicit drug use Functional Ability ADLs Independent: dressing, eating, toileting, bathing. Ambulation: cane IADLs Needs Assist: shopping, housework, finances, food prep, telephone, transportation, medication admin. Review of Systems Review of Systems Constitutional: Reports: see HPI. Exam & Diagnostic Data Last 24 Hrs of Vital Signs/I&O Vital Signs Date Time Temp Pulse Resp B/P B/P Pulse O2 O2 Flow FiO2 Mean Ox Delivery Rate 09/09 1835 93 09/09 1615 98 Nasal 3.0L Cannula 09/09 1501 93 Nasal 2.0L Cannula 09/09 1452 97.8 96 22 133/86 92 Nasal 3.0L Cannula Intake & Output 09/09 1600 09/09 0800 09/09 0000 Intake Total Output Total Balance Patient 78.018 kg Weight Physical Exam General Appearance Alert, Oriented X3, Cooperative, No Acute Distress Skin few annular lesions on the chest Skin Temp/Moisture Exam: Warm/Dry Sepsis Skin Exam (color): Normal for Ethnicity HEENT Atraumatic, PERRLA, EOMI Neck Supple, No JVD Cardiovascular Regular Rate, Normal S1, Normal S2 Lungs Normal Air Movement, significant wheezing diffusely Abdomen Normal Bowel Sounds, Soft, No Tenderness Neurological Normal Speech, Strength at 5/5 X4 Ext, Normal Tone Extremities No Clubbing, No Cyanosis, No Edema Vascular Normal Pulses, Pulses Symmetrical Last 24 Hrs of Labs/Jens: Laboratory Tests 09/09/17 1829: IgE Cancelled 09/09/17 1515: Anion Gap 15, Estimated GFR > 60, BUN/Creatinine Ratio 23.8, Glucose 122 H, Calcium 9.3, Iron 114, TIBC 303, Ferritin Pending, Total Bilirubin 0.6, AST 35, ALT 31, Alkaline Phosphatase 56, Troponin I < 0.01, [id number] Pept 326 H, Total Protein 7.8, Albumin 4.4, Globulin 3.4, Albumin/Globulin Ratio 1.3, TSH Pending, Free T4 0.61 L, CBC w Diff NO MAN DIFF REQ, RBC 6.11 H, MCV 60.6 L, MCH 18.8 L, MCHC 31.0 L, RDW 19.0 H, MPV 8.7, Gran % 64.9, Lymphocytes % 20.0 L, Monocytes % 5.9, Eosinophils % 8.9 H, Basophils % 0.3, Absolute Granulocytes 4.0, Absolute Lymphocytes 1.2, Absolute Monocytes 0.4, Absolute Eosinophils 0.5, Absolute Basophils 0, IgE Pending Microbiology 09/09 1902 LOWER RESP: Respiratory Culture - ORD 09/09 1902 LOWER RESP: Gram Stain - ORD Diagnostic Data EKG Results Normal sinus rhythm with Q waves in V1, V2, heart rate 90. Unchanged from previous EKG. Assessment/Plan Assessment: Patient is a 67-year-old male with no known pulmonary problems, known CAD status post IA with EF 40-45% (not actively following up with any store merchandiser) presented with progressive worsening of shortness of breath, audible wheezing for the past few months. He had significant spasmodic cough along with gasping for breath today when he is walking back to his room, saturations at the time were 84%, improved with nebulization and oxygen supplementation. He did have cough with clear phlegm production. Vital signs at presentation afebrile, heart rate 96, blood pressure 133/86 mmHg, saturating 92% on 3 L. Physical examination did show nasal polyps on upper nares, diffuse wheezing on lung examination, nontender abdominal examination, normal heart sounds. Labs did show a normal white count with microcytic anemia, eosinophilia of 8.5%, elevated absolute eosinophils. Chem panel unremarkable. EKG unremarkable from previous one. Chest x-ray did show increased left hemidiaphragm otherwise unremarkable. Differentials Eosinophilic variant asthma ---- probable etiologies include aspirin sensitivity given as an polyps, aspirin a day, diffuse wheezing, ABPA. Other possibilities are an allergy to either food/medications. Less probable causes include vocal cord dysfunction. Elevated A-a Gradient --> 43, age related A-a gradient is 17, so probably due to shunting in the setting of bronchospasm. Problem list 1. Eosinophilic variant asthma 2. CAD status post IA 3. Probable overactive bladder 4. Mental health - Anxiety/bipolar disorder Plan Admit to general medicine floor Eosinophilic variant asthma * TRC/nebs * Solu-Medrol every 8 - 40 mg * Montelukast 10 mg daily * Check IgE, Aspergillus antibody * Possible skin test in the future * Hold Aspirin * Obtain records from [facility] about recent admission for similar condition. CAD status post IA Hold aspirin, continue Coreg 25 mg twice a day, atorvastatin 40 mg daily. Bladder problems Cotinue bethanichol 25mg tid, tamsulosin 0.8mg at bedtime. Mental health Continue sertraline 200 mg daily, Abilify 2 mg daily Insomnia continue trazodone 100mg bedtime DVT prophylaxis SC heparin Code status Full code As Ranked By This Provider Problem List: 1. Asthma 2. Hypoxia Core Measures/Misc (12/01) Acute Coronary Syndrome ACS Diagnosis: No Congestive Heart Failure Congestive Heart Failure Diagnosis No Cerebrovascular Accident CVA/TIA Diagnosis: No VTE (View Protocol) VTE Risk Factors Acute Medical Illness No Mechanical VTE Prophylaxis d/t N/A MechProphylax Ordered No VTE Pharm Prophylaxis d/t NA PharmProphylax ordered Sepsis (View protocol) Sepsis Present: No If YES complete Sepsis Event Note If YES complete Sepsis Event Note Resident Review Statement Resident Statement: examined this patient, discussed with international tax manager, agreed with international tax manager, discussed with family, reviewed EMR data (avail), discussed with nursing , discussed with case mgmt, reviewed images, amended to note Other Findings: as above Deirdre Long MD 09/09/17 2358: Core Measures/Misc (12/01) Sepsis (View protocol) If YES complete Sepsis Event Note If YES complete Sepsis Event Note Attending MD Review Statement Attending Statement Attending MD Statement: examined this patient, discuss w/resident/PA/HOT STICK WORKER, agreed w/resident/PA/HOT STICK WORKER, reviewed EMR data (avail) Attending Assessment/Plan: 67M PMH f CAD status post IA with EF 40-45% with shortness of breath for 2 days, wheezing, and hypoxic 89% in ER, did not improve with nebulizer treatments. Dry cough, no sptuum, no recent travel or sick contacts. Labs reviewed, eosinophilia noted. CXR negative. Will start Solumedrol, Azithromycin, pulmonary consult, nebulizer treatments, Aspergillus antigen, continue home meds , DVTPPx
[2017-09-09] MEDS ORDERED: AMLODIPINE BESY10 M1 PO (19:13)
[2017-09-09] MEDS ORDERED: BETHANECHOL CHL25 M1 PO (19:13)
[2017-09-09] MEDS ORDERED: ABILIFY2 MG PO (19:13)
[2017-09-09] MEDS ORDERED: TRAZODONE HCL100 M1 PO (19:14)
[2017-09-09 22:04] VITALS: BP 110/70
[2017-09-10 06:38] VITALS: BP 100/70
--- NOTE | 2017-09-10 07:41 | PN- Housestaff ---
Tanya MARTIN,Lexii 09/10/17 0741: Subjective Follow-up For: Asthma exacerbation Chest pain r/o ACS Anxiety/Depression Subjective: Patient was seen and examined today. Patient reports that he continues to feel congested and short of breath. Asking for respiratory treatment. Reports sharp intermittent chest pain radiating to left arm. Reports history of CAD and 4 stents. Patient states he occasionally takes nitroglycerin to relieve pain. Is on aspirin. No acute events overnight. Review of Systems Constitutional: Reports: see HPI. Objective Last 24 Hrs of Vital Signs/I&O Vital Signs Date Time Temp Pulse Resp B/P B/P Pulse O2 O2 Flow FiO2 Mean Ox Delivery Rate 09/10 1424 98.1 85 20 116/69 95 Room Air 09/10 0929 92 114/62 09/10 0929 92 114/62 09/10 0840 93 Room Air 09/10 0800 Room Air 09/10 0638 98.2 75 20 100/70 93 Room Air 09/10 0315 95 Room Air 09/09 2356 98.6 09/09 2235 88 124/76 09/09 2235 88 124/76 09/09 2204 98.4 77 16 110/70 94 Room Air 09/09 2127 Room Air 09/09 2050 93 Room Air 09/09 1939 96.7 78 20 121/86 94 Room Air 09/09 1835 93 Intake & Output 09/10 1600 09/10 0800 09/10 0000 Intake Total 480 260 320 Output Total 300 100 Balance 480 -40 220 Intake, IV 20 20 Intake, Oral 480 240 300 Output, Urine 300 100 Patient 186 lb Weight Weight Bed scale Measurement Method Physical Exam General Appearance: Alert, Oriented X3, Cooperative, No Acute Distress HEENT: Atraumatic, Mucous Membr. moist/pink Cardiovascular: Regular Rate, Normal S1, Normal S2, No Murmurs Lungs: bilateral rhonchi and diffuse mild expiratory wheezing Abdomen: Normal Bowel Sounds, Soft, No Tenderness Neurological: Normal Speech, Cranial Nerves 3-12 NL Extremities: No Clubbing, No Cyanosis, No Edema, Normal Pulses, No Tenderness/ Swelling Current Medications: Current Medications Sig/Moises Start time Last Medication Dose Route Stop Time Status Admin Albuterol Sulfate 3 ML TID 09/10 0900 AC 09/10 INH 1256 Albuterol Sulfate 3 ML ONCE ONE 09/09 1745 DC 09/09 INH 09/09 1746 1835 Amlodipine Besylate 10 MG DAILY 09/10 09 AC 09/10 PO 09 Aripiprazole 2 MG DAILY 09/10 09 AC 09/10 PO 09 Aspirin 325 MG ONCE ONE 09/10 1000 DC 09/10 PO 09/10 1001 1031 Aspirin Buffered 81 MG DAILY 09/11 0900 AC PO Atorvastatin Calcium 40 MG 1700 09/10 1700 AC 09/10 PO 1652 Azithromycin 250 MG DAILY 09/10 09 AC 09/10 PO 0928 Bethanechol Chloride 25 MG TID 09/09 2100 AC 09/10 PO 1526 Carvedilol 25 MG BID 09/09 2100 AC 09/10 PO 0929 Heparin Sodium 5,000 UNIT Q8 09/09 2200 AC 09/10 (Porcine) SC 1403 Methylprednisolone 40 MG Q8 09/09 2199 AC 09/10 IV 09/13 1401 1403 Montelukast Sodium 10 MG AT BEDTIME 09/09 2100 AC 09/09 PO 2235 Nitroglycerin 0.4 MG ONCE ONE 09/10 1400 DC 09/10 SL 09/10 1401 1403 Nitroglycerin 0.4 MG ONCE ONE 09/10 1000 DC 09/10 SL 09/10 1001 1032 Nystatin 1 SANDRA BID 09/10 09 AC 09/10 TOP 0928 Sertraline HCl 200 MG DAILY 09/10 09 AC 09/10 PO 927 Tamsulosin HCl 0.8 MG 2200 09/09 2200 AC 09/09 PO 2235 Trazodone HCl 100 MG QPM 09/09 2100 AC 09/09 PO 2235 Last 24 Hrs of Lab/Jens Results Last 24 Hrs of Labs/Mics: Laboratory Tests 09/10/17 1000: Troponin I < 0.01 09/10/17626: Anion Gap 15, Estimated GFR > 60, BUN/Creatinine Ratio 25.7 H, CBC w Diff MAN DIFF ORDERED, RBC 5.68, MCV 60.3 L, MCH 18.9 L, MCHC 31.4 L, RDW 18.6 H, MPV 11.2 H, Gran % 89.1 H, Lymphocytes % 10.3 L, Monocytes % 0.6 L, Eosinophils % 0, Basophils % 0, Absolute Granulocytes 7.1 H, Absolute Lymphocytes 0.8 L, Absolute Monocytes 0 L, Absolute Eosinophils 0, Absolute Basophils 0, Platelet Estimate ADEQUATE, Polychromasia 1+, Hypochromic-Microcytic 2+, Poikilocytosis 3 +, Basophilic Stippling , Anisocytosis 3+, Microcytic Cells 1+, Ovalocytes 2+, Elliptocytes 1+, Schistocytes 09/10/17 0254: Urine Color YEL, Urine Clarity CLEAR, Urine pH 6.0, Ur Specific [place] 1.020, Urine Protein NEG, Urine Ketones TRACE H, Urine Nitrite NEG, Urine Bilirubin NEG, Urine Urobilinogen 0.2, Ur Leukocyte Esterase NEG, Ur Microscopic EXAM NOT REQUIRED, Urine Hemoglobin NEG, Urine Glucose NEG 09/09/17 2355: pH 7.44, pCO2 34 L, pO2 63 L, HCO3 22, ABG O2 Sat (Measured) 90.0 L, P-50 ( Temp Corrected) N, Carboxyhemoglobin 0.3 L, O2 Concentration % RA, Temperature 98.6, Phlebotomy Draw Site RIGHT RADIAL 09/09/172024: Aspergillus Antibody Pending 09/09/17 2002: Troponin I 0.03 09/09/17 1829: IgE Cancelled Microbiology 09/10 1206 LOWER RESP: Respiratory Culture - CAN Cancelled: NUMBER OF SQUAMOUS CELLS INDICATES POOR QUALITY SPECIMEN 09/10 1206 LOWER RESP: Gram Stain - CAN Cancelled: NUMBER OF SQUAMOUS CELLS INDICATES POOR QUALITY SPECIMEN Assessment/Plan Assessment: Patient is a 67-year-old male with no known pulmonary problems, known CAD status post UT with EF 40-45% (not actively following up with any mold maker helper) presented with progressive worsening of shortness of breath, audible wheezing for the past few months. He had significant spasmodic cough along with gasping for breath today when he is walking back to his room, saturations at the time were 84%, improved with nebulization and oxygen supplementation. He did have cough with clear phlegm production. On admission: Vital signs: afebrile, heart rate 96, blood pressure 133/86 mmHg, saturating 92% on 3 L. Physical examination did show nasal polyps on upper nares, diffuse wheezing on lung examination, nontender abdominal examination, normal heart sounds. Labs did show a normal white count with microcytic anemia, eosinophilia of 8.5%, elevated absolute eosinophils. Chem panel unremarkable. EKG unremarkable from previous one. Chest x-ray did show increased left hemidiaphragm otherwise unremarkable. Problem list 1. Asthma 2. Chest pain, most likely pleuritic/musculoskeletal, will need to r/o ACS due to extensive cardiac history 3. CAD status post UT 4. Probable overactive bladder 5. Mental health - Anxiety/bipolar disorder Asthma exacerbation 2/2 acute bronchitis: * TRC/nebs * Solu-Medrol 40mg q8h * Montelukast 10 mg daily * IgE, Aspergillus antibody pending * Obtain records from [facility] about recent admission for similar condition. Chest pain r/o ACS * Repeat EKG and troponin this afternoon * Cardiology consulted * Obtain records from [place] - have faxed over requests, records pending * Restarted aspirin - given 325mg x1. Will continue aspirin 81mg daily CAD status post UT Hold aspirin, continue Coreg 25 mg twice a day, atorvastatin 40 mg daily. Bladder problems Cotinue bethanichol 25mg tid, tamsulosin 0.8mg at bedtime. Mental health Continue sertraline 200 mg daily, Abilify 2 mg daily Insomnia continue trazodone 100mg bedtime DVT prophylaxis SC heparin Code status Full code Problem List: 1. Asthma 2. Bronchitis Pain Ratin Pain Location: chest Pain Goal: Pain 4 or less Pain Plan: nitro PRN Tomorrow's Labs & Rationales: carlos Nation MD,Lori 09/10/17 1223: Attending MD Review Statement Attending Statement Attending MD Statement: examined this patient, discuss w/resident/PA/PATIENT ACCOUNTING REPRESENTATIVE, agreed w/resident/PA/PATIENT ACCOUNTING REPRESENTATIVE, reviewed EMR data (avail), discussed with nursing, discussed with case mgmt, amended to note Attending Assessment/Plan: Patient seen and examined. Complained of retrosternal chest pain this morning radiating to the left shoulder. Denies productive cough. Admits shortness of breath has improved compared to presentation. Denies palpitations. Admits to chest pain on and off at home although from his reported appears infrequent. He reports taking nitroglycerin on and off at home but denies using any in the past 2 weeks. Due to complaints of chest pain this morning he was given aspirin and nitroglycerin. He reports very little relief with use of nitroglycerin this morning. He admits to being in [facility] recently but does not know exactly when. He states he had a stress test and that hospitalization reports that it was negative. General appearance: Well-developed and not in obvious respiratory or painful distress. HEENT: Anicteric, no pallor, pupils equal and reactive. Neck: Supple with no jugular venous distention. Heart: S1-S2 regular with no audible murmur. Lungs: Adequate and symmetric air entry bilaterally with mild expiratory wheezing Abdomen: Nondistended with normal bowel sounds. Soft, nontender with no palpable masses. Extremities: No pedal edema. No cyanosis. Skin: Intact Problems: 1. Acute bronchitis 2. Chest pain 3. Coronary artery disease 4. Cardiomyopathy likely ischemic etiology with reduced ejection fraction. 5. Anxiety disorder and depression 6. Chronic microcytic anemia Plan: -Continue bronchodilator therapy. Continue systemic steroid therapy. Taper down Solu-Medrol beginning tomorrow if patient remains clinically stable. -Continue aspirin, statin, Coreg. -Follow troponin trend. -Obtain cardiac records from [facility]. -Mobilize patient as tolerated.
[2017-09-10 08:13] LABS: ABSOLUTE BASOPHIL COUNT 0 /CUMM (0.0-0.2); ABSOLUTE EOSINOPHIL COUNT 0 /CUMM (0.0-0.7); ABSOLUTE GRANULOCYTE CT 7.1 /CUMM (1.4-6.5); ABSOLUTE LYMPH COUNT 0.8 /CUMM (1.2-3.4); ABSOLUTE MONOCYTE COUNT 0 /CUMM (0.10-0.60); BASOPHIL % 0 % (0.0-2.0); EOSINOPHIL % 0 % (0-5); GRANULOCYTE % 89.1 % (42.2-75.2); HEMATOCRIT 34.3 % (42-52); MEAN CORPUSCULAR HGB 18.9 PG (27.0-31.0); MEAN CORPUSCULAR HGB CONC 31.4 G/DL (33.0-37.0); MEAN CORPUSCULAR VOLUME 60.3 FL (80.0-94.0); MEAN PLATELET VOLUME 11.2 FL (7.4-10.4); PLATELET COUNT 281 /CUMM (130-400); RBC DISTRIBUTION WIDTH 18.6 % (11.5-14.5); RED BLOOD CELL CT 5.68 /CUMM (4.70-6.10)
--- NOTE | 2017-09-10 11:12 | Cons- Cardiology ---
General Information and HPI Consulting Request Date of Consult: 09/10/17 Requested By: Lori Nation MD Reason for Consult: Chest pain in a patient who presents with respiratory distress and has known underlying heart disease. Source of Information: patient, old records Exam Limitations: poor historian History of Present Illness: The patient is a 67-year-old man with a past history of heart disease. He has had multiple stents in the past around 2000 according to previous notes. The patient apparently has also had prior cardiac catheterization about 10 years ago with no further intervention. The patient states he has chest pain at rest a couple of times a month usually relieved by nitroglycerin. He is on usual cardiac regimen. He states he has had respiratory problems in the past as well. He states he was hospitalized at [facility] "a few months ago" for similar presentation to today. He states he underwent cardiac evaluation at that time including stress test and was told everything was "okay". The patient was admitted yesterday for shortness of breath and hypoxia. He was found to be wheezing and hypoxic and is being treated with usual respiratory regimen. Today he states he is having chest pain which he describes as "elephant on my chest". He states it does not radiate. He was given 1 nitroglycerin which he states partially relieved the discomfort. The patient although complaining of chest pain seems quite comfortable at this time. 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 There is a positive family history of heart disease. His last echocardiogram here showed LVH and an ejection fraction of 40-45% with anteroseptal wall motion abnormalities. The patient has significant psychiatric disabilities and was recently hospitalized in the [facility] inpatient psych unit in April 2017. His most recent lipids in April 2017 showed a cholesterol of 121, triglycerides 161, HDL 31, LDL 58. Allergies/Medications Allergies: Coded Allergies: NO KNOWN ALLERGIES (NONE 04/15/17) Home Med List: Amlodipine Besylate 10 MG TABLET 1 TAB PO DAILY blood pressure (Reported) Aripiprazole (Abilify) 2 MG TABLET 1 TAB PO DAILY depression (Reported) Aspirin (Lo-Dose Aspirin EC) 81 MG TABLET.DR 1 TAB PO DAILY HEART HEALTH ( Reported) Atorvastatin Calcium 40 MG TABLET 1 TAB PO DAILY CHOLESTEROL (Reported) Bethanechol Chloride 25 MG TABLET 1 TAB PO TID urine flow (Reported) Carvedilol 25 MG TABLET 1 TAB PO BID HEART (Reported) Nitroglycerin 0.4 MG TAB.SUBL 1 TAB SL AD PRN CHEST PAIN (Reported) 1st sign of attack; may repeat every 5 minutes until relief; if pain persists after 3 tablets in 15 minutes, prompt medical att Sertraline HCl (Zoloft) 100 MG TABLET 200 MG PO DAILY depression and anxiety Tamsulosin HCl (Flomax) 0.4 MG CAP.ER.24H 0.8 MG PO 2200 urine flow Trazodone HCl 100 MG TABLET 1 TAB PO QPM sleep (Reported) Current Medications: Current Medications Sig/Moises Start time Last Medication Dose Route Stop Time Status Admin Albuterol Sulfate 3 ML TID 09/10 0900 AC 09/10 INH 0819 Albuterol Sulfate 3 ML ONCE ONE 09/09 1745 DC 09/09 INH 09/09 1746 1835 Albuterol Sulfate 3 ML ONCE ONE 09/09 1600 DC 09/09 INH 09/09 1601 1609 Amlodipine Besylate 10 MG DAILY 09/10 0900 AC 09/10 PO 0929 Aripiprazole 2 MG DAILY 09/10 0900 AC 09/10 PO 0929 Aspirin 325 MG ONCE ONE 09/10 1000 DC 09/10 PO 09/10 1001 1031 Atorvastatin Calcium 40 MG 1700 09/10 1700 AC PO Azithromycin 250 MG DAILY 09/10 0900 AC 09/10 PO 0928 Bethanechol Chloride 25 MG TID 09/09 2100 AC 09/10 PO 0929 Carvedilol 25 MG BID 09/09 2100 AC 09/10 PO 0929 Heparin Sodium 5,000 UNIT Q8 09/09 2200 AC 09/10 (Porcine) SC 0501 Ipratropium [place] 2.5 ML ONCE ONE 09/09 1600 DC 09/09 INH 09/09 1601 1609 Methylprednisolone 40 MG Q8 09/09 2200 AC 09/10 IV 09/13 1401 0501 Methylprednisolone 0 .STK-MED ONE 09/09 1608 DC .ROUTE Methylprednisolone 125 MG ONCE ONE 09/09 1600 DC 09/09 IV 09/09 1601 1600 Montelukast Sodium 10 MG AT BEDTIME 09/09 2100 AC 09/09 PO 2235 Nitroglycerin 0.4 MG ONCE ONE 09/10 1000 DC 09/10 SL 09/10 1001 1032 Nystatin 1 SANDRA BID 09/10 0900 AC 09/10 TOP 0928 Sertraline HCl 200 MG DAILY 09/10 0900 AC 09/10 PO 0928 Tamsulosin HCl 0.8 MG 2200 09/09 2200 AC 09/09 PO 223 Trazodone HCl 100 MG QPM 09/09 2100 AC 09/09 PO 223 Review of Systems Review of Systems: No other complaints Past History Travel History Traveled to [place] past 21 day No Medical History Blood Transfusion Hx: Yes Neurological: NONE EENT: NONE Cardiovascular: CAD (with stenting procedure), CHF, myocardial infarction, STENTS 4 Respiratory: NONE Gastrointestinal: NONE Hepatic: NONE Renal: NONE Musculoskeletal: NONE Psychiatric: anxiety, bipolar disease (would list as a "rule out"), depression Endocrine: NONE Blood Disorders: NONE Cancer(s): NONE CORNICE MAKER/Reproductive: NONE Surgical History Surgical History: non-contributory, hernia repair-inguinal, STENT PLACEMENT 4 Family History Relations & Conditions If Any: BROTHER Relation not specified for: Tricuspid valve disorder Psychosocial History Where Do You Live? Extended Care Facility Who Do You Live With? self Services at Home: Nursing Smoking Status: Never Smoked ETOH Use: denies use Illicit Drug Use: denies illicit drug use Functional Ability ADLs Independent: dressing, eating, toileting, bathing. Ambulation: cane IADLs Needs Assist: shopping, housework, finances, food prep, telephone, transportation, medication admin. Exam & Diagnostic Data Vital Signs and I&O Vital Signs Date Time Temp Pulse Resp B/P B/P Pulse O2 O2 Flow FiO2 Mean Ox Delivery Rate 09/10 0929 92 114/62 09/10 0929 92 114/62 09/10 0840 93 Room Air 09/10 0638 98.2 75 20 100/70 93 Room Air 09/10 0315 95 Room Air 09/09 2356 98.6 09/09 2235 88 124/76 09/09 2235 88 124/76 09/094 98.4 77 16 110/70 94 Room Air 09/09 2126 Room Air 09/09 2049 93 Room Air 09/09 1939 96.7 78 20 121/86 94 Room Air 09/09 1835 93 09/09 1615 98 Nasal 3.0L Cannula 09/09 1501 93 Nasal 2.0L Cannula 09/09 1452 97.8 96 22 133/86 92 Nasal 3.0L Cannula Intake & Output 09/10 0800 09/10 0000 09/09 0800 09/09 0000 Intake Total 260 320 Output Total 300 100 Balance -40 220 Intake, IV 20 20 Intake, Oral 240 300 Output, Urine 300 100 Patient 186 lb 172 lb Weight Weight Bed scale Measurement Method Physical Exam: The patient is a 67-year-old man appearing older than stated age in no acute distress HEENT exam is normal Neck veins not distended Carotids normal Chest mild expiratory wheezing, no rales Heart regular rhythm, no murmurs, S4 gallop Extremities good pulses, no edema Labs/Jens Results: Laboratory Tests 09/10 09/10 1000 0627 Chemistry Sodium (137 - 145 mmol/L) 141 Potassium (3.5 - 5.1 mmol/L) 4.6 Chloride (98 - 107 mmol/L) 101 Carbon Dioxide (22 - 30 mmol/L) 25 Anion Gap (5 - 16) 15 BUN (9 - 20 mg/dL) 18 Creatinine (0.7 - 1.2 mg/dL) 0.7 Estimated GFR (>60 ml/min) > 60 BUN/Creatinine Ratio (7 - 25 %) 25.7 H Troponin I Pending Hematology CBC w Diff MAN DIFF ORDERED WBC (4.8 - 10.8 /CUMM) 8.0 RBC (4.70 - 6.10 /CUMM) 5.68 Hgb (14.0 - 18.0 G/DL) 10.8 L Hct (42 - 52 %) 34.3 L MCV (80.0 - 94.0 FL) 60.3 L MCH (27.0 - 31.0 PG) 18.9 L MCHC (33.0 - 37.0 G/DL) 31.4 L RDW (11.5 - 14.5 %) 18.6 H Plt Count (130 - 400 /CUMM) 281 MPV (7.4 - 10.4 FL) 11.2 H Gran % (42.2 - 75.2 %) 89.1 H Lymphocytes % (20.5 - 51.1 %) 10.3 L Monocytes % (1.7 - 9.3 %) 0.6 L Eosinophils % (0 - 5 %) 0 Basophils % (0.0 - 2.0 %) 0 Absolute Granulocytes (1.4 - 6.5 /CUMM) 7.1 H Absolute Lymphocytes (1.2 - 3.4 /CUMM) 0.8 L Absolute Monocytes (0.10 - 0.60 /CUMM) 0 L Absolute Eosinophils (0.0 - 0.7 /CUMM) 0 Absolute Basophils (0.0 - 0.2 /CUMM) 0 Platelet Estimate (ADEQUATE) ADEQUATE Polychromasia 1+ Hypochromic-Microcytic 2+ Poikilocytosis 3+ Basophilic Stippling Anisocytosis 3+ Microcytic Cells 1+ Ovalocytes 2+ Elliptocytes 1+ Schistocytes 09/10 09/09 0254 2095 Blood Gas pH (7.35 - 7.45 PH) 7.44 pCO2 (35 - 45 TORR) 34 L pO2 (80 - 100 TORR) 63 L HCO3 (21 - 28 MEQ/L) 22 ABG O2 Sat (Measured) (>96.0 %) 90.0 L P-50 (Temp Corrected) N Carboxyhemoglobin (1.5 - 5.0 %) 0.3 L O2 Concentration % RA Temperature (97.0 - 100.0 FARH) 98.6 Miscellaneous Phlebotomy Draw Site RIGHT RADIAL Urines Urine Color (YEL,AMB,STR) YEL Urine Clarity (CLEAR) CLEAR Urine pH (5.0 - 8.0) 6.0 Ur Specific [place] (1.001 - 1.035) 1.020 Urine Protein (NEG,<30 MG/DL) NEG Urine Ketones (NEG) TRACE H Urine Nitrite (NEG) NEG Urine Bilirubin (NEG) NEG Urine Urobilinogen (0.1 - 1.0 EU/dl) 0.2 Ur Leukocyte Esterase (NEG) NEG Ur Microscopic EXAM NOT REQUIRED Urine Hemoglobin (NEG) NEG Urine Glucose (N MG/DL) NEG 09/09 1829 Chemistry Troponin I (<0.11 ng/ml) 0.03 Immunology IgE Cancelled Serology Aspergillus Antibody Pending 09/09 09/09 1515 UNK Chemistry Sodium (137 - 145 mmol/L) 141 Potassium (3.5 - 5.1 mmol/L) 4.2 Chloride (98 - 107 mmol/L) 99 Carbon Dioxide (22 - 30 mmol/L) 26 Anion Gap (5 - 16) 15 BUN (9 - 20 mg/dL) 19 Creatinine (0.7 - 1.2 mg/dL) 0.8 Estimated GFR (>60 ml/min) > 60 BUN/Creatinine Ratio (7 - 25 %) 23.8 Glucose (65 - 99 mg/dL) 122 H Calcium (8.4 - 10.2 mg/dL) 9.3 Iron (49 - 181 ug/dL) 114 TIBC (261 - 462 ug/dL) 303 Ferritin (17.9 - 464 ng/mL) 211.0 Total Bilirubin (0.2 - 1.3 mg/dL) 0.6 AST (17 - 59 U/L) 35 ALT (21 - 72 U/L) 31 Alkaline Phosphatase (< 127 U/L) 56 Troponin I (<0.11 ng/ml) < 0.01 [id number] Pept (<125 pg/mL) 326 H Total Protein (6.3 - 8.2 g/dL) 7.8 Albumin (3.5 - 5.0 g/dL) 4.4 Globulin (1.9 - 4.2 gm/dL) 3.4 Albumin/Globulin Ratio (1.1 - 2.2 %) 1.3 TSH (0.270 - 4.200 uIU/mL) 3.800 Free T4 (0.78 - 2.44 ng/dL) 0.61 L Hematology CBC w Diff NO MAN DIFF REQ WBC (4.8 - 10.8 /CUMM) 6.1 RBC (4.70 - 6.10 /CUMM) 6.11 H Hgb (14.0 - 18.0 G/DL) 11.5 L Hct (42 - 52 %) 37.0 L MCV (80.0 - 94.0 FL) 60.6 L MCH (27.0 - 31.0 PG) 18.8 L MCHC (33.0 - 37.0 G/DL) 31.0 L RDW (11.5 - 14.5 %) 19.0 H Plt Count (130 - 400 /CUMM) 234 MPV (7.4 - 10.4 FL) 8.7 Gran % (42.2 - 75.2 %) 64.9 Lymphocytes % (20.5 - 51.1 %) 20.0 L Monocytes % (1.7 - 9.3 %) 5.9 Eosinophils % (0 - 5 %) 8.9 H Basophils % (0.0 - 2.0 %) 0.3 Absolute Granulocytes (1.4 - 6.5 /CUMM) 4.0 Absolute Lymphocytes (1.2 - 3.4 /CUMM) 1.2 Absolute Monocytes (0.10 - 0.60 /CUMM) 0.4 Absolute Eosinophils (0.0 - 0.7 /CUMM) 0.5 Absolute Basophils (0.0 - 0.2 /CUMM) 0 Immunology IgE Pending Serology Aspergillus Antibody Cancelled Diagnostic Data EKG Results Initial EKG showed sinus rhythm at a rate of 91 with evidence of old anterior myocardial infarction. Repeat EKG last evening shows sinus rhythm rate of 87 occasional PAC and old anterior myocardial infarction CXR Results PATIENT: ITZEL GERARD PRESENT AGE: 67 PATIENT ACCOUNT NO: [id number] : 52 LOCATION: [facility] ORDERING PHYSICIAN: Héctor CARLSON SERVICE DATE: 09/09/179416 EXAM TYPE: RAD - XRY-PORTABLE CHEST XRAY EXAMINATION: XR PORTABLE CHEST CLINICAL INFORMATION: Shortness of breath COMPARISON: 10/31/2011 TECHNIQUE: Portable frontal view of the chest was obtained. FINDINGS: Slight elevation of the left hemidiaphragm. No consolidation, edema, or effusion. No pneumothorax. The cardiomediastinal silhouette is within normal limits. No acute osseous abnormality. IMPRESSION: Elevated left hemidiaphragm. No consolidation. DICTATED BY: Riky Ramirez MD DATE/TIME DICTATED:09/09/171527 SECURITY NURSE:PADMINI DATE/TIME TRANSCRIBED:09/09/171527 CONFIDENTIAL, DO NOT COPY WITHOUT APPROPRIATE AUTHORIZATION. <Electronically signed in Other Vendor System> SIGNED BY: Riky Ramirez MD 09/09 2776 Assessment/Plan Assessment/Plan The patient is a 67-year-old man who presents with respiratory distress probably due to an acute bronchitis type picture. There is no evidence of pneumonia. He is complaining of chest discomfort, but appears comfortable. His EKGs did not show any acute change. A third troponin is pending, the first 2 were negative. I recommend just monitoring his EKGs and troponins. I would do another EKG today. I would try and get records from [facility] from his recent hospitalization that he refers to to see if he in fact had echocardiogram and stress test there. If he did they may not need to be repeated here. Obviously if his troponins trend upwards we will consider further evaluation here. Consult Acknowledgment - Thank you for your consult request.
[2017-09-10 14:24] VITALS: BP 116/69
[2017-09-10 21:15] VITALS: BP 128/90
[2017-09-11 06:13] VITALS: BP 122/80
--- NOTE | 2017-09-11 07:31 | PN- Housestaff ---
Tanya MARTIN,Lexii 09/11/17 0731: Subjective Follow-up For: Asthma exacerbation Chest pain r/o ACS Anxiety/Depression Subjective: Patient was seen and examined today. Patient today states he believes he needs a stent. Reports continued sharp intermittent chest pain. Patient reports discomfort with food. Denies cough or shortness of breath. No acute events overnight. Review of Systems Constitutional: Reports: see HPI. Objective Last 24 Hrs of Vital Signs/I&O Vital Signs Date Time Temp Pulse Resp B/P B/P Pulse O2 O2 Flow FiO2 Mean Ox Delivery Rate 09/11 0613 98.4 79 20 122/80 92 09/11 0000 95 Room Air 09/10 2155 93 Room Air Room Air 09/10 2115 98.0 77 18 128/90 93 Room Air 09/10 2012 138/92 09/10 2012 138/92 09/10 1424 98.1 85 20 116/69 95 Room Air 09/10 0929 92 114/62 09/10 0929 92 114/62 09/10 0840 93 Room Air 09/10 0800 Room Air Intake & Output 09/11 0800 09/11 0000 09/10 1600 Intake Total 480 480 480 Output Total 500 500 Balance -20 -20 480 Intake, Oral 480 480 480 Output, Urine 500 500 Patient 184 lb Weight Weight Bed scale Measurement Method Physical Exam General Appearance: Alert, Cooperative, No Acute Distress Skin: raised erythematous rash on chest and arm Skin Temp/Moisture Exam: Warm/Dry HEENT: Atraumatic, Mucous Membr. moist/pink Cardiovascular: Regular Rate, Normal S1, Normal S2, No Murmurs Lungs: Clear to Auscultation, Normal Air Movement Abdomen: Normal Bowel Sounds, Soft, No Tenderness Neurological: Normal Speech, Cranial Nerves 3-12 NL Extremities: No Clubbing, No Cyanosis, No Edema, Normal Pulses, No Tenderness/ Swelling Current Medications: Current Medications Sig/Moises Start time Last Medication Dose Route Stop Time Status Admin Acetaminophen 650 MG Q6-PRN PRN 09/10 1830 AC 09/11 PO 0611 Albuterol Sulfate 3 ML TID 09/10 0900 AC 09/10 INH 2153 Amlodipine Besylate 10 MG DAILY 09/10 0900 AC 09/10 PO 09 Aripiprazole 2 MG DAILY 09/10 09 AC 09/10 PO 09 Aspirin 325 MG ONCE ONE 09/10 1000 DC 09/10 PO 09/10 1001 1031 Aspirin Buffered 81 MG DAILY 09/11 0900 AC PO Atorvastatin Calcium 40 MG 1700 09/10 1700 AC 09/10 PO 165 Azithromycin 250 MG DAILY 09/10 09 AC 09/10 PO 927 Bethanechol Chloride 25 MG TID 09/09 2100 AC 09/10 PO 2020 Carvedilol 25 MG BID 09/09 2100 AC 09/10 PO 2012 Heparin Sodium 5,000 UNIT Q8 09/09 2200 AC 09/11 (Porcine) SC 0610 Methylprednisolone 40 MG Q8 09/09 2200 AC 09/11 IV 09/13 1401 0610 Montelukast Sodium 10 MG AT BEDTIME 09/09 2100 AC 09/10 PO 2012 Nitroglycerin 0.4 MG ONCE ONE 09/10 1400 DC 09/10 SL 09/10 1401 1403 Nitroglycerin 0.4 MG ONCE ONE 09/10 1000 DC 09/10 SL 09/10 1001 1032 Nystatin 1 SANDRA BID 09/10 09 AC 09/10 TOP 2014 Sertraline HCl 200 MG DAILY 09/10 0900 AC 09/10 PO 927 Tamsulosin HCl 0.8 MG 2200 09/09 2199 AC 09/10 PO 2012 Trazodone HCl 100 MG QPM 09/09 2100 AC 09/10 PO 2012 Last 24 Hrs of Lab/Jens Results Last 24 Hrs of Labs/Mics: Laboratory Tests 09/11 09/10 0656 1620 Chemistry Troponin I (<0.11 ng/ml) < 0.01 Coagulation D-Dimer High Sensitivty (0 - 243 ng/ml) 222 Hematology CBC w Diff NO MAN DIFF REQ WBC (4.8 - 10.8 /CUMM) 10.6 RBC (4.70 - 6.10 /CUMM) 5.55 Hgb (14.0 - 18.0 G/DL) 10.6 L Hct (42 - 52 %) 34.0 L MCV (80.0 - 94.0 FL) 61.2 L MCH (27.0 - 31.0 PG) 19.0 L MCHC (33.0 - 37.0 G/DL) 31.0 L RDW (11.5 - 14.5 %) 19.0 H Plt Count (130 - 400 /CUMM) 233 MPV (7.4 - 10.4 FL) 8.8 Gran % (42.2 - 75.2 %) 87.2 H Lymphocytes % (20.5 - 51.1 %) 9.1 L Monocytes % (1.7 - 9.3 %) 3.7 Eosinophils % (0 - 5 %) 0 Basophils % (0.0 - 2.0 %) 0 Absolute Granulocytes (1.4 - 6.5 /CUMM) 9.2 H Absolute Lymphocytes (1.2 - 3.4 /CUMM) 1.0 L Absolute Monocytes (0.10 - 0.60 /CUMM) 0.4 Absolute Eosinophils (0.0 - 0.7 /CUMM) 0 Absolute Basophils (0.0 - 0.2 /CUMM) 0 Assessment/Plan Assessment: Patient is a 67-year-old male with no known pulmonary problems, known CAD status post OR with EF 40-45% (not 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 He had significant spasmodic cough along with gasping for breath today when he is walking back to his room, saturations at the time were 84%, improved with nebulization and oxygen supplementation. He did have cough with clear phlegm production. On admission: Vital signs: afebrile, heart rate 96, blood pressure 133/86 mmHg, saturating 92% on 3 L. Physical examination did show nasal polyps on upper nares, diffuse wheezing on lung examination, nontender abdominal examination, normal heart sounds. Labs did show a normal white count with microcytic anemia, eosinophilia of 8.5%, elevated absolute eosinophils. Chem panel unremarkable. EKG unremarkable from previous one. Chest x-ray did show increased left hemidiaphragm otherwise unremarkable. Problem list 1. Asthma- improving, no peripheral eosinophils seen, IgE negative, aspergillus antibody pending 2. Chest pain, less likely cardiac in nature, [facility] results revealed stress test negative for ischemia, revealed EF of 38%. EKG and trops x 3 negative. Although moderate relief with nitro, pain appears more likely pleuritic/musculoskeletal and may also be due to GERD which may be exacerbated with steroid use. 3. CAD status post OR 4. Probable overactive bladder 5. Mental health - Anxiety/bipolar disorder Asthma exacerbation 2/2 acute bronchitis: * TRC/nebs * Solu-Medrol tapered to 40mg q12, will start prednisone tomorrow * Montelukast 10 mg daily * Aspergillus antibody pending * Records from [place] pending Chest pain r/o ACS * Added protonix * Cardiology consulted * Obtain records from [facility] - have faxed over requests, records pending * Continue aspirin 81mg daily CAD status post OR Continue aspirin, continue Coreg 25 mg twice a day, atorvastatin 40 mg daily. Bladder problems Cotinue bethanichol 25mg tid, tamsulosin 0.8mg at bedtime. Mental health Continue sertraline 200 mg daily, Abilify 2 mg daily Insomnia continue trazodone 100mg bedtime DVT prophylaxis SC heparin Code status Full code Problem List: 1. Asthma Pain Ratin Pain Location: chest Pain Goal: Pain 4 or less Pain Plan: prn Tomorrow's Labs & Rationales: none-stable Chapis MARTIN,Lori 09/11/17 1107: Attending MD Review Statement Attending Statement Attending MD Statement: examined this patient, discuss w/resident/PA/AMMONIA WORKER, agreed w/resident/PA/AMMONIA WORKER, reviewed EMR data (avail), discussed with nursing, discussed with case mgmt, amended to note Attending Assessment/Plan: Patient seen and examined. Lying in bed. Not in acute respiratory distress. Mildly anxious. Relieved when I told him his cardiac enzymes and EKG have been negative. I did review his cardiac cath done in April of [facility]. Shows no evidence of ischemic disease. He did have diffuse hypokinesis and an EF of 38%. He continues to complain of retrosternal. No relief of symptoms and use of nitroglycerin. Denies cough. Denies palpitations. On examination he has adequate entry bilaterally with wheezing. Abdomen soft and nontender. He has no peripheral edema. Recommendations: -Continue bronchodilator therapy and systemic steroid therapy for his asthma exacerbation. -Solu-Medrol dose has been decreased today. Begin patient on prednisone for more and then taper by 20 mg every third day. -Begin patient empirically on PPI. He has stated that chest discomfort is occasionally aggravated by meals. -Follow-up with cardiology service regarding further cardiac workup for his chest discomfort if indicated. If no further cardiac workup is recommended and chest pain persists then I would recommend outpatient GI follow-up for endoscopic evaluation.
[2017-09-11 07:57] LABS: ABSOLUTE BASOPHIL COUNT 0 /CUMM (0.0-0.2); ABSOLUTE EOSINOPHIL COUNT 0 /CUMM (0.0-0.7); ABSOLUTE GRANULOCYTE CT 9.2 /CUMM (1.4-6.5); ABSOLUTE MONOCYTE COUNT 0.4 /CUMM (0.10-0.60); BASOPHIL % 0 % (0.0-2.0); EOSINOPHIL % 0 % (0-5); MEAN CORPUSCULAR VOLUME 61.2 FL (80.0-94.0); MEAN PLATELET VOLUME 8.8 FL (7.4-10.4); RED BLOOD CELL CT 5.55 /CUMM (4.70-6.10); WHITE BLOOD CELL COUNT 10.6 /CUMM (4.8-10.8)
[2017-09-11 08:48] LABS: GRANULOCYTE % 87.2 % (42.2-75.2); PLATELET COUNT 233 /CUMM (130-400)
--- NOTE | 2017-09-11 13:00 | PN- Cardiology ---
Subjective Subjective: The patient is feeling better with regards to his breathing. He is still having chest discomfort which seems to be reproducible with pressure. His enzymes are all consistently negative. His EKG is abnormal but is not showing any acute changes. Records were sent for at [facility] but have not been received. Objective Vital Signs and I&Os Vital Signs Date Time Temp Pulse Resp B/P B/P Pulse O2 O2 Flow FiO2 Mean Ox Delivery Rate 09/11 0854 94 Room Air Room Air 09/11 08 79 122/80 09/11 0827 79 122/80 09/11 0800 92 Room Air Room Air 09/11 0613 98.4 79 20 122/80 92 09/11 0000 95 Room Air 09/10 2155 93 Room Air Room Air 09/10 2115 98.0 77 18 128/90 93 Room Air 09/10 2012 138/92 09/10 2012 138/92 09/10 1424 98.1 85 20 116/69 95 Room Air Intake & Output 09/11 1600 09/11 0800 09/11 0000 09/10 1600 09/10 0809/10 0000 Intake Total 480 480 480 260 320 Output Total 300 1025 500 300 100 Balance -300 -545 -20 480 -40 220 Intake, IV 20 20 Intake, Oral 480 480 480 240 300 Output, Urine 300 1025 500 300 100 Patient 184 lb 186 lb Weight Weight Bed scale Bed scale Measurement Method Physical Exam: No distress HEENT exam normal Chest slightly decreased breath sounds no rales or wheezing today Heart regular rhythm, no murmurs Current Medications: Current Medications Sig/Moises Start time Last Medication Dose Route Stop Time Status Admin Acetaminophen 650 MG Q6-PRN PRN 09/10 1830 AC 09/11 PO 0611 Albuterol Sulfate 3 ML TID 09/10 09 AC 09/11 INH 0854 Amlodipine Besylate 10 MG DAILY 09/10 09 AC 09/11 PO 0827 Aripiprazole 2 MG DAILY 09/10 09 AC 09/11 PO 0827 Aspirin Buffered 81 MG DAILY 09/11 899 AC 09/11 PO 0827 Atorvastatin Calcium 40 MG 1700 09/10 1700 AC 09/10 PO 1652 Azithromycin 250 MG DAILY 09/10 09 AC 09/11 PO 0827 Bethanechol Chloride 25 MG TID 09/09 PO 0827 Carvedilol 25 MG BID 09/09 PO 826 Heparin Sodium 5,000 UNIT Q8 09/09 2199 AC 09/11 (Porcine) SC 06 Methylprednisolone 40 MG Q12 09/11 2099 AC IV Methylprednisolone 40 MG Q8 09/090 DC 09/11 IV 09/13 1401 0610 Montelukast Sodium 10 MG AT BEDTIME 09/09 2099 AC 09/10 PO 2012 Nitroglycerin 0.4 MG ONCE ONE 09/10 1400 DC 09/10 SL 09/10 1401 1403 Nystatin 1 SANDRA BID 09/10 09 AC 09/11 TOP 0828 Omeprazole 40 MG DAILY AC 09/11 09 AC PO Sertraline HCl 200 MG DAILY 09/10 09 AC 09/11 PO 826 Tamsulosin HCl 0.8 MG 09/09 AC 09/10 PO 2012 Trazodone HCl 100 MG QPM 09/09 2099 AC 09/10 PO 2012 Results Last 48 Hrs of Labs/Mics: Laboratory Tests 09/11/17 0656: CBC w Diff NO MAN DIFF REQ, RBC 5.55, MCV 61.2 L, MCH 19.0 L, MCHC 31.0 L, RDW 19.0 H, MPV 8.8, Gran % 87.2 H, Lymphocytes % 9.1 L, Monocytes % 3.7, Eosinophils % 0, Basophils % 0, Absolute Granulocytes 9.2 H, Absolute Lymphocytes 1.0 L, Absolute Monocytes 0.4, Absolute Eosinophils 0, Absolute Basophils 0 09/10/17 1620: Troponin I < 0.01, D-Dimer High Sensitivty 222 09/10/17 1000: Troponin I < 0.01 09/10/17 0627: Anion Gap 15, Estimated GFR > 60, BUN/Creatinine Ratio 25.7 H, CBC w Diff MAN DIFF ORDERED, RBC 5.68, MCV 60.3 L, MCH 18.9 L, MCHC 31.4 L, RDW 18.6 H, MPV 11.2 H, Gran % 89.1 H, Lymphocytes % 10.3 L, Monocytes % 0.6 L, Eosinophils % 0, Basophils % 0, Absolute Granulocytes 7.1 H, Absolute Lymphocytes 0.8 L, Absolute Monocytes 0 L, Absolute Eosinophils 0, Absolute Basophils 0, Platelet Estimate ADEQUATE, Polychromasia 1+, Hypochromic-Microcytic 2+, Poikilocytosis 3 +, Basophilic Stippling , Anisocytosis 3+, Microcytic Cells 1+, Ovalocytes 2+, Elliptocytes 1+, Schistocytes 09/10/17 0254: Urine Color YEL, Urine Clarity CLEAR, Urine pH 6.0, Ur Specific [place] 1.020, Urine Protein NEG, Urine Ketones TRACE H, Urine Nitrite NEG, Urine Bilirubin NEG, Urine Urobilinogen 0.2, Ur Leukocyte Esterase NEG, Ur Microscopic EXAM NOT REQUIRED, Urine Hemoglobin NEG, Urine Glucose NEG 09/09/17 2355: pH 7.44, pCO2 34 L, pO2 63 L, HCO3 22, ABG O2 Sat (Measured) 90.0 L, P-50 ( Temp Corrected) N, Carboxyhemoglobin 0.3 L, O2 Concentration % RA, Temperature 98.6, Phlebotomy Draw Site RIGHT RADIAL 09/09/172024: Aspergillus Antibody Pending 09/09/172001: Troponin I 0.03 09/09/17 1829: IgE Cancelled 09/09/17 1515: Anion Gap 15, Estimated GFR > 60, BUN/Creatinine Ratio 23.8, Glucose 122 H, Calcium 9.3, Iron 114, TIBC 303, Ferritin 211.0, Total Bilirubin 0.6, AST 35, ALT 31, Alkaline Phosphatase 56, Troponin I < 0.01, Iks-I-Hkvjlapwayc Pept 326 H, Total Protein 7.8, Albumin 4.4, Globulin 3.4, Albumin/Globulin Ratio 1.3, TSH 3.800, Free T4 0.61 L, CBC w Diff NO MAN DIFF REQ, RBC 6.11 H, MCV 60.6 L, MCH 18.8 L, MCHC 31.0 L, RDW 19.0 H, MPV 8.7, Gran % 64.9, Lymphocytes % 20.0 L, Monocytes % 5.9, Eosinophils % 8.9 H, Basophils % 0.3, Absolute Granulocytes 4.0, Absolute Lymphocytes 1.2, Absolute Monocytes 0.4, Absolute Eosinophils 0.5, Absolute Basophils 0, IgE 57 Assessment/Plan Assessment/Plan The patient is doing better. His lungs are clear. His cardiac evaluation is negative. His chest discomfprt is noncardiac. Records are still pending from [facility]. (Records eventually received showed negtive stress test in Apr 2017 at [facility].) I think the patient can be just followed clinically from a cardiac standpoint. Any further testing that needs to be done can be deferred to outpatient. Continue telemetry? Not applicable
[2017-09-11] MEDS ORDERED: OMEPRAZOLE20 M2 PO (13:51)
[2017-09-11] MEDS ORDERED: NYSTATIN15 G1 TOP (13:51)
[2017-09-11] MEDS ORDERED: MONTELUKAST SOD10 M1 PO (13:51)
--- NOTE | 2017-09-11 13:53 | Patient Discharge Instructions ---
See Addendum Discharge Instructions General Discharge Information You were seen/treated for: Asthma GERD Special Instructions: 1. Please take medications as prescribed 2. Please follow up with your pcp and cardiology Diet Continue normal diet: No Recommended Diet: Heart Healthy Activity Full Activity/No Limits: No Activity Self Limited: Yes Acute Coronary Syndrome Inclusion Criteria At DC or during hospital stay patient has or had the following: ACS DIAGNOSIS No Discharge Core Measures Meds if any: Prescribed or Continued at Discharge Meds if any: NOT Prescribed or Continued at Discharge Congestive Heart Failure Inclusion Criteria At DC or during hospital stay patient has or had the following: CHF DIAGNOSIS No Discharge Core Measures Meds if any: Prescribed or Continued at Discharge Meds if any: NOT Prescribed or Continued at Discharge Cerebrovascular accident Inclusion Criteria At DC or during hospital stay patient has or had the following: CVA/TIA Diagnosis No Discharge Core Measures Meds if any: Prescribed or Continued at Discharge Meds if any: NOT Prescribed or Continued at Discharge Venous thromboembolism Inclusion Criteria VTE Diagnosis No VTE Type NONE VTE Confirmed by (Test) NONE Discharge Core Measures - Per Current guidelines, there needs to be overlap - treatment for the first 5 days of Warfarin therapy. - If discharged on Warfarin prior to 5 days of - overlap therapy, the patient will need to be - assessed for post discharge needs including - *Post discharge parental anticoagulation - *Warfarin and/or parental anticoagulation education - *Follow up date to check INR post discharge At least 5 days overlap therapy as Inpatient No Meds if any: Prescribed or Continued at Discharge Note: Overlap Therapy is Warfarin and Anticoagulant Meds if any: NOT Prescribed or Continued at Discharge
[2017-09-11 14:29] VITALS: BP 130/76
[2017-09-11 21:28] VITALS: BP 140/80
--- NOTE | 2017-09-11 21:38 | Discharge Summary ---
Visit Information Visit Dates Admission Date: 09/09/17 Discharge Date: 09/12/17 Hospital Course Course Attending Physician: Sebastian MARTIN,Coral [place] Primary Care Physician: Roxane MARTIN,George Dubon Consulting Request: Consulting Specialty: Cardiology Consulting Physician: Dr. Eber Dey Reason for Consult: Chest Pain Hospital Course: Patient is a 67-year-old male with CAD status post ND and multiple stents, with LVEF 40-45% (not actively following up with any oven loader), reported history of asthma currently on albuterol inhaler, presented with progressive worsening of shortness of breath, audible wheezing for the past few months. He had significant spasmodic cough along with gasping for breath today when he is walking back to his room, saturations at the time were 84%, improved with nebulization and oxygen supplementation. He did have cough with clear phlegm production. On admission: Vital signs: afebrile, heart rate 96, blood pressure 133/86 mmHg, saturating 92% on 3 L. Physical examination did show nasal polyps on upper nares, diffuse wheezing on lung examination, nontender abdominal examination, normal heart sounds. Labs did show a normal white count with microcytic anemia, eosinophilia of 8.5%, elevated absolute eosinophils. Chem panel unremarkable. EKG unremarkable from previous one. Chest x-ray did show increased left hemidiaphragm otherwise unremarkable. Patient was stable for admission to the general medicine floor for management of the following: Problems: 1. Asthma exacerbation 2. Chest pain R/O ACS 3. CAD status post ND and multiple stents, HF w/ LVEF of 38% 4. Probable overactive bladder 5. 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 IgE level was within normal limits. Aspergillus antibiody level pending. Patient required oxygen on admission which was weaned off prior to discharge. Patient was given a referal for pulmonology for outpatient management of asthma. He was discharged on a short prednisone taper and montelukast for two weeks with further management per pulmonology. Patient during his admission complained about chest pain which did not appear to be of a cardiac etiology however due to significant cardiac history ACS was ruled out with EKG and trops negative x3. Records from [place] revealed nuclear stress test in April of 2017 which showed no sign of ischemia, with LVEF of 38%. Cardiology was consulted and patient was continued on home medications including aspirin and was started on losartan. Patient is to follow up with cardiology outpatient for further workup and will check BEP on September 16, 2017 to monitor potassium and renal function after starting ARB. Patient was started on protonix for increased acid reflux in setting of steroid use. Remainder of patient's home medications were continued. Allergies: Coded Allergies: NO KNOWN ALLERGIES (NONE 04/15/17) Pertinent Lab Results: SERVICE DATE: 09/09/17-4427 EXAM TYPE: RAD - XRY-PORTABLE CHEST XRAY EXAMINATION: XR PORTABLE CHEST CLINICAL INFORMATION: Shortness of breath COMPARISON: 10/31/2011 TECHNIQUE: Portable frontal view of the chest was obtained. FINDINGS: Slight elevation of the left hemidiaphragm. No consolidation, edema, or effusion. No pneumothorax. The cardiomediastinal silhouette is within normal limits. No acute osseous abnormality. IMPRESSION: Elevated left hemidiaphragm. No consolidation. Disposition Summary Disposition Principal Diagnosis: Asthma Exacerbation Additional Diagnosis: Chest pain r/o ACS Discharge Disposition: home or self care Discharge Instructions General Discharge Information Code Status: Full Code Patient's Diet: Heart Healthy Patient's Activity: Self-Limited Follow-Up Instructions/Appts: 1. Please follow up with your pcp within 1 week of discharge 2. Please follow up with the metal leaf layer and oven loader (please call and make an appointment- referal has been given) 3. Please take medications as prescribed. 4. Please get a BMP on September 16 to monitor potassium and renal function after starting losartan - patient given a script for bloodwork Medications at Discharge Discharge Medications: Continue taking these medications: Carvedilol (Carvedilol) 25 MG TABLET 1 Tablet ORAL TWICE DAILY Qty = 60 Comments: Last Taken:05/08/17 Time:2130 Nitroglycerin (Nitroglycerin) 0.4 MG TAB.SUBL 1 Tablet SUBLINGUAL As Directed as needed for CHEST PAIN Qty = 100 Instructions: 1st sign of attack; may repeat every 5 minutes until relief; if pain persists after 3 tablets in 15 minutes, prompt medical att Comments: Last Taken:NOT USED IN THE HOSPITAL Time: Aspirin (Lo-Dose Aspirin EC) 81 MG TABLET.DR 1 Tablet ORAL DAILY Qty = 30 Comments: Last Taken:NOT USED IN THE HOSPITAL Time: Atorvastatin Calcium (Atorvastatin Calcium) 40 MG TABLET 1 Tablet ORAL DAILY Qty = 30 Comments: Last Taken:05/08/17 Time:2129 Tamsulosin HCl (Flomax) 0.4 MG CAP.ER.24H 0.8 Milligram ORAL 2200 Qty = 15 Comments: Last Taken:05/08/17 Time:213 Sertraline HCl (Zoloft) 100 MG TABLET 200 Milligram ORAL DAILY Qty = 30 Comments: Last Taken:05/09/17 Time:1030 Aripiprazole (Abilify) 2 MG TABLET 1 Tablet ORAL DAILY Amlodipine Besylate (Amlodipine Besylate) 10 MG TABLET 1 Tablet ORAL DAILY Bethanechol Chloride (Bethanechol Chloride) 25 MG TABLET 1 Tablet ORAL THREE TIMES DAILY Trazodone HCl (Trazodone HCl) 100 MG TABLET 1 Tablet ORAL Every night Albuterol Sulfate (Proair Hfa) 90 MCG HFA.AER.AD 2 Puff Inhale through mouth EVERY 4-6 HOURS NEEDED as needed for ASTHMA Start taking the following new medications: Montelukast Sodium (Montelukast Sodium) 10 MG TABLET 1 Tablet ORAL AT BEDTIME Qty = 15 No Refills Instructions: Please take for 2 weeks and follow up with the metal leaf layer Omeprazole (Omeprazole) 20 MG CAPSULE.DR 1 Tablet ORAL DAILY BEFORE BREAKFAST Qty = 30 No Refills Prednisone (Prednisone) 20 MG TABLET 0 ORAL SEE INSTRUCTIONS Qty = 7 No Refills Instructions: Take 2 tab from 09/13 to 09/14 Take 1 tab from 09/15 to 09/17 then STOP Nystatin (Nystatin) 100,000 UNIT/GRAM CREAM..G. 1 Application On the skin TWICE DAILY Qty = 1 No Refills Instructions: Place on affected areas twice daily after cleaning area. Losartan Potassium (Losartan Potassium) 25 MG TABLET 1 Tablet ORAL DAILY Qty = 30 No Refills Copies To: Roxane MARTIN,George Dubon; Yissel MARTIN,Eber Sheth
--- NOTE | 2017-09-12 06:21 | PN- Housestaff ---
Tanya MARTIN,Lexii 09/12/17 0620: Subjective Follow-up For: Asthma exacerbation Chest pain r/o ACS Anxiety/Depression GERD Subjective: Patient was seen and examined today. Patient reports his breathing has improved with treatment. Patient reports continued sharp chest pain associated with food. Patient was started on a PPI yesterday. Patient denies any cough, fever, chills, nausea/vomiting, abdominal pain, dysuria/hematuria. No acute events overnight. Patient reports that he has a ride for this evening. Review of Systems Constitutional: Reports: see HPI. Objective Last 24 Hrs of Vital Signs/I&O Vital Signs Date Time Temp Pulse Resp B/P B/P Pulse O2 O2 Flow FiO2 Mean Ox Delivery Rate 09/12 1027 86 146/96 09/12 1027 86 146/96 09/12 0804 93 Room Air Room Air 09/12 0705 98.3 70 18 118/78 92 09/12 0000 Room Air 09/11 2301 135/55 09/11 2128 98.0 83 18 140/80 94 09/11 2040 130/75 09/11 1910 96 Room Air 09/11 1600 Room Air 09/11 1429 98.0 81 20 130/76 95 Room Air Intake & Output 09/12 1600 09/12 0800 09/12 0000 Intake Total 480 850 Output Total 600 500 Balance -120 350 Intake, Oral 480 850 Number 1 Bowel Movements Output, Urine 600 500 Patient 183 lb Weight Physical Exam General Appearance: Alert, Cooperative, No Acute Distress Skin: raised erythematous rash on chest and arms HEENT: Atraumatic, Mucous Membr. moist/pink Lymphatic: Axillary nl, Cervical nl Cardiovascular: Regular Rate, Normal S1, Normal S2 Lungs: mild diffuse expiratory wheezing - improved from previous day Abdomen: Normal Bowel Sounds, Soft, No Tenderness Neurological: Normal Speech, Cranial Nerves 3-12 NL Extremities: No Clubbing, No Cyanosis, No Edema, Normal Pulses, No Tenderness/ Swelling Vascular: Normal Pulses, Pulses Symmetrical Current Medications: Current Medications Sig/Moises Start time Last Medication Dose Route Stop Time Status Admin Acetaminophen 650 MG .STK-MED ONE 09/11 1905 DC PO 09/11 190 Acetaminophen 650 MG Q6-PRN PRN 09/10 1830 AC 09/11 PO 1907 Albuterol Sulfate 3 ML TID 09/10 0900 AC 09/12 INH 0804 Amlodipine Besylate 10 MG DAILY 09/10 0900 AC 09/12 PO 1027 Aripiprazole 2 MG DAILY 09/10 0900 AC 09/12 PO 1027 Aspirin Buffered 81 MG DAILY 09/11 09 AC 09/12 PO 1028 Atorvastatin Calcium 40 MG 1700 09/10 1700 AC 09/11 PO 1645 Azithromycin 250 MG DAILY 09/10 0900 AC 09/12 PO 1027 Bethanechol Chloride 25 MG TID 09/09 2100 AC 09/12 PO 1027 Carvedilol 25 MG BID 09/09 2100 AC 09/12 PO 1027 Heparin Sodium 5,000 UNIT Q8 09/09 2200 AC 09/12 (Porcine) SC 0540 Methylprednisolone 40 MG Q12 09/11 2100 DC 09/11 IV 2048 Montelukast Sodium 10 MG AT BEDTIME 09/09 2100 AC 09/11 PO 2040 Nystatin 1 SANDRA BID 09/10 0900 AC 09/11 TOP 2043 Omeprazole 40 MG DAILY AC 09/11 0926 AC 09/12 PO 0540 Patient Medication 1 ED ONE ONE 09/11 1645 DC 09/11 Teaching ED 09/11 1646 1645 Prednisone 40 MG DAILY 09/12 09 AC 09/12 PO 1028 Sertraline HCl 200 MG DAILY 09/10 0900 AC 09/12 PO 1027 Tamsulosin HCl 0.8 MG 22009/09 AC 09/11 PO 2301 Trazodone HCl 100 MG QPM 09/09 2100 AC 09/11 PO 2040 Assessment/Plan Assessment: 1Patient is a 67-year-old male with no known pulmonary problems, known CAD status post MA with EF 40-45% (not actively following up with any cylinder 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 He had significant spasmodic cough along with gasping for breath today when he is walking back to his room, saturations at the time were 84%, improved with nebulization and oxygen supplementation. He did have cough with clear phlegm production. On admission: Vital signs: afebrile, heart rate 96, blood pressure 133/86 mmHg, saturating 92% on 3 L. Physical examination did show nasal polyps on upper nares, diffuse wheezing on lung examination, nontender abdominal examination, normal heart sounds. Labs did show a normal white count with microcytic anemia, eosinophilia of 8.5%, elevated absolute eosinophils. Chem panel unremarkable. EKG unremarkable from previous one. Chest x-ray did show increased left hemidiaphragm otherwise unremarkable. Problem list 1. Asthma- improving, no peripheral eosinophils seen, IgE negative, aspergillus antibody pending 2. Chest pain, less likely cardiac in nature, [place] results revealed stress test negative for ischemia, revealed EF of 38%, previous ECHO showed LVEF of 45 to 50%. EKG and trops x 3 negative. Although moderate relief with nitro, pain appears more likely pleuritic/musculoskeletal and may also be due to GERD which may be exacerbated with steroid use. 3. CAD status post MA 4. Probable overactive bladder 5. Mental health - Anxiety/bipolar disorder Asthma exacerbation 2/2 acute bronchitis: * TRC/nebs * Started on prednisone with a quick taper of 20mg every 3 days starting with 40mg today * Montelukast 10 mg daily for 2 weeks. Will follow up with water filtration technician for further evaluation * Aspergillus antibody pending Chest pain r/o ACS, likely multifactorial - pleurtic due to cough and shortness of breath and due to increased acid reflux due to steroid use * Continue protonix * Follow up outpatient with cardiology * Continue aspirin 81mg daily CAD status post MA, CHF w/LVEF of 38% on stress test and 45-50% on ECHO * Continue aspirin, continue Coreg 25 mg twice a day, atorvastatin 40 mg daily. * Started on losartan 25mg daily * Will check BEP on September 16, 2017 Bladder problems Cotinue bethanichol 25mg tid, tamsulosin 0.8mg at bedtime. Mental health Continue sertraline 200 mg daily, Abilify 2 mg daily Insomnia continue trazodone 100mg bedtime DVT prophylaxis SC heparin Code status Full code Problem List: 1. Asthma 2. CHF (congestive heart failure) 3. Chest pain syndrome Pain Ratin Pain Location: chest Pain Goal: Pain 4 or less Pain Plan: prn Tomorrow's Labs & Rationales: none-stable for discharge Coral Cortes MD 09/12/17 1011: Attending MD Review Statement Attending Statement Attending MD Statement: examined this patient, discuss w/resident/PA/FUNCTIONAL MANAGER, agreed w/resident/PA/FUNCTIONAL MANAGER, reviewed EMR data (avail), discussed with nursing, discussed with case mgmt, reviewed images Attending Assessment/Plan: Patient is doing well. He saturating at 98% off oxygen. He is not tachycardic and and and not in any respiratory distress. Appreciate Dr. Dey as follow- up. This is a 67-year-old male with known coronary artery disease and previous stents, chronic mild systolic heart failure. He is here with what appears to be hyperreactive airway disease with an asthma exacerbation. He is doing well on by mouth prednisone and the plan is discharge with a quick taper. He'll have outpatient follow-up with Dr. Peter Richard. He's also requesting an outpatient pulmonary evaluation and will give him a referral for the same. We stressed compliance and close outpatient follow-up.
[2017-09-12 07:05] VITALS: BP 118/78
[2017-09-12] MEDS ORDERED: PREDNISONE20 M1 PO ×2 (09:51→10:20)
[2017-09-12] MEDS ORDERED: PROAIR HFA8.5 GM INH (10:00)
[2017-09-12] MEDS ORDERED: MONTELUKAST SOD10 M1 PO ×2 (10:08→10:20)
[2017-09-12] MEDS ORDERED: NYSTATIN15 G1 TOP (10:20)
[2017-09-12] MEDS ORDERED: OMEPRAZOLE20 M2 PO (10:20)
[2017-09-12] MEDS ORDERED: LOSARTAN POTASS25 M1 PO (11:26)
[2017-09-12 15:16] VITALS: BP 132/82
[2017-09-12 17:00] VITALS: BP 128/90
== END 2017-09-12 17:30 | DRG 202 ==
LOC: DELPENDDIS → ERH 14:43 → ERHI 17:21 → 2NB 17:21 → CANBEDREQ 18:16 → ENRESERV 18:32 → ENTRNSPT 20:29 → 2NB 20:49 → EDTRNSPTSTS 20:52 → EDTRNSPT 20:52 → CMPTRNSPT 21:15 → 2NB 09-10 08:45 → ENPENDDIS 09-10 11:13 → ENTRNSPT 09-12 17:01 → EDTRNSPTSTS 09-12 17:02 → 2NB 09-12 17:30 → CMPTRNSPT 09-12 17:32
PROVIDERS: Internal Medicine; Physician Assistant Medical; Student in an Organized Health Care Education/Training Program
DX: J20.9 Acute bronchitis, unspecified (principal); J45.901 Unspecified asthma with (acute) exacerbation; I50.22 Chronic systolic (congestive) heart failure; R09.02 Hypoxemia; I25.10 Atherosclerotic heart disease of native coronary artery without angina pectoris; M79.1 Myalgia; Z77.22 Contact with and (suspected) exposure to environmental tobacco smoke (acute) (chronic); I25.2 Old myocardial infarction; F41.9 Anxiety disorder, unspecified; F32.9 Major depressive disorder, single episode, unspecified; Z98.61 Coronary angioplasty status; G47.00 Insomnia, unspecified; K21.9 Gastro-esophageal reflux disease without esophagitis
CPT/HCPCS: 2NBSP; 36415; 36592; 71045; 81003; 82436; 87070; 93005; 93010; J0456; J1644; J2920; J2930; J3490